=== PATIENT | female | born 1995 | race Caucasian/White ===

== ENCOUNTER 2017-04-23 18:08 | Inpatient (IN) | payer MEDICAID, SELFPAY ==
[~2017-04-23 18:08] MED LIST: Heparin 1,000 UNITS/ML VIAL ONE
[2017-04-23] MEDS ORDERED: Dexamethasone 4 mg/ml Vial ONE (19:05)
[2017-04-23 19:15] LABS: #Lymphocytes 1.3 thou/uL (1.20-3.40); #Monocytes 0.4 thou/uL (0.11-0.59); #Neutrophils 12.8 thou/uL (1.40-6.50); %Basophils 0.3 % (0.0-1.0); %Eosinophils 0.2 % (0.0-10.0); %Lymphocytes 8.8 % (28.0-48.0); %Monocytes 2.6 % (0.0-4.0); %Neutrophils 88.2 % (31.0-61.0); Hemoglobin 9.7 g/dL (12.0-16.0); Mean Corpuscular HGB CONC 33.5 g/dL (32.0-36.0); Mean Corpuscular Volume 92.7 fl (77.0-87.0); Platelet Count 414 thou/uL (130-400); RBC Distribution Width 12.1 % (11.5-14.5); Red Blood Cell (RBC) Count 3.13 mill/uL (4.00-5.20); White Blood Cell (WBC) Count 14.6 thou/uL (4.8-10.8)
[2017-04-23 19:39] LABS: Bilirubin Negative (Negative); Blood, Urine Large (Negative); Clarity CLEAR (Clear); Glucose, Urine (Dipstick) Negative (Negative); Leukocyte Negative (Negative); Nitrite Negative (Negative); Protein, Urine (Dipstick) Trace mg/dL (Neg-Trace)
[2017-04-23 19:41] LABS: Pathc Cast-AUWi Flag 0.54 (0-2.49)
[2017-04-23 19:42] LABS: Pregnancy Test - Urine (BHCG) Negative (Negative); Pregu Control Background? CLEAR/WHITE (CLR/WHITE); Pregu Control Bar Appear? YES (CONTROL BAR); Specific Gravity Greater than 1.060 (1.002-1.036)
[2017-04-23 19:43] LABS: Specific Gravity, Urine Greater than 1.060 (1.002-1.036)
[2017-04-23 20:00] LABS: Bacteria/HPF None Seen HPF (None Seen); Hyaline Casts/LPF 0-3 HYALINE CAST LPF (0-3 Hyaline); RBC/HPF 21-50 HPF (0-3); Squamous Epithelial 0-3 HPF (0-3); WBC/HPF 0-3 HPF (0-3)
--- NOTE | 2017-04-23 20:00 | RAD ---
AP PELVIS: 04/23/17 HISTORY: Hip pain. FINDINGS/IMPRESSION: There is contrast in the urinary bladder. No fracture, dislocation, or bony destruction identified. POS: [facility]
[2017-04-23] MEDS ORDERED: metroNIDAZOLE 500 MG in Premix Bag 1 BAG IVPB SCH (20:15)
[2017-04-23] MEDS ORDERED: VANCOMYCIN IVPB PRN (20:33)
--- NOTE | 2017-04-23 20:35 | CT ---
CT STONE PROTOCOL: 04/23/17 HISTORY: Abdominal pain. FINDINGS: Absence of IV and oral contrast reduces the sensitivity of exam particularly for the evaluation of so lid organs and bowel. There is contrast in the kidneys, ureters, and the urinary bladder from the CT pulmonary angiogram pe rformed four hours ago. Persistent bilateral nephrograms are present with contrast excretion into the ureters and urinary bladder. No hydroureteronephrosis is seen. There are low density lesions in righ t kidney. There are wedge shaped areas of decreased contrast particularly in the left renal cortex amezquita spicious for infarcts. The spleen measures 12.6 cm in AP dimension. No calcified gallstones are seen. No free air is identif ied. There is free fluid in the pelvis. Please see CT chest findings from earlier today. IMPRESSION: 1. Persistent bilateral nephrograms. Differential diagnosis includes hypotension, renal artery s tenosis, renal vein thrombosis, papillary necrosis, nephritis, tubular or cortical necrosis, tubular precipitation (such as with uric acid or hemolysis). 2. Borderline splenomegaly. 3. Low dense lesions in the right kidney. 4. Probable renal infarctions. POS: [facility]
--- NOTE | 2017-04-23 20:38 | ULT ---
VENOUS DOPPLER ULTRASOUND OF THE RIGHT LOWER EXTREMITY: 04/23/17 HISTORY: Right leg pain. TECHNIQUE: Carr scale ultrasound with color flow and spectral doppler imaging of the deep venous system of the r ight lower extremity is performed. FINDINGS: There is good flow, compression and augmentation noted in the right common femoral, femoral, deep fem oral, popliteal, posterior tibial, anterior tibial and greater saphenous veins. IMPRESSION: No evidence of DVT in the right lower extremity. POS: K[facility]
[2017-04-23] MEDS ORDERED: Ampicillin/Sulbactam 3 GM in Sodium Chloride 0.9% 100 ML IVPB SCH (21:00)
[2017-04-23] MEDS ORDERED: Ondansetron HCl/PF 4 MG/2 ML Vial IVP PRN (22:52)
[2017-04-23] MEDS ORDERED: Ondansetron ODT 4 MG TAB SL PRN (22:52)
[2017-04-23 23:20] LABS: HIV (1/2) Antibody/Antigen Non-Reactive (NonReactive); HIV 1/2 INDEX 0.19 S/CO (<1.00)
--- NOTE | 2017-04-23 23:43 | HP ---
PRIMARY CARE PHYSICIAN: Winsome López MD CHIEF COMPLAINT: Shortness of breath and cough. HISTORY OF PRESENT ILLNESS: Patient is a very pleasant 22-year-old female with history of lupus, currently not on any medications for the past 4 months, who was sent from [place] for jaylene ateral pneumonia. Upon talking to the patient, patient states that she has not been feeling well for the past few days. She has been complaining of cough, generalized body aches and pains, weakness an d so she went to see her doctor's office today; however, she was found to have hypotension, so she wa s sent to [place] for further evaluation. Patient underwent extensive workup at [place], w [facility] indicated bilateral cavitary pneumonia; and therefore, was transferred to [facility] for further evaluation. Patient denies any sick contacts recently. She denies any recent travel wit hin the [place] or outside the country. She denies any recent pets. She only has a couple of dogs. Patient states that she has been having decreased appetite and has lost about 7 pounds over past few weeks. She states that she has been feeling feverish at home. Patient does state that sh e has been having night sweats for the past 2 days. Prior to all of this incident, patient stated ab out 2 weeks ago, she stepped on a glass and went to the ER, which she had the glass removed. Since , she has also been complaining of right leg pain. Patient denies any chest pain currently. She does have a history of lupus and states that she takes meloxicam and Neurontin and has not been on st eroids for the past 4 months. PAST MEDICAL HISTORY: Lupus. PAST SURGICAL HISTORY: She had a . SOCIAL HISTORY: She denied any alcohol, smoking, or any drug use. ALLERGIES: No known drug allergies. REVIEW OF SYSTEMS: Patient is positive for night sweats, cough, low-grade fever, right hip and right leg pain, 7-pound weight loss, and decreased appetite. Otherwise, everything else is negative. PHYSICAL EXAMINATION: VITAL SIGNS: Currently, patient is at low-grade temperature of 99.3, respirations of 18. She is tac hycardic at 118, 104/61. She is 94% on room air. GENERAL: Patient is awake, alert, oriented x3, does not appear in any distress. CARDIOVASCULAR: S1, S2 present. Patient is sinus tachycardic. No murmurs heard. RESPIRATORY: She has decreased breath sounds to her bilateral lower bases. No rhonchi noted. ABDOMEN: Soft, nontender. Bowel sounds are present x2. EXTREMITIES: She does have a small healed incision on her right plantar aspect of her foot. She brown s have some pain, which is located on her right medial aspect of her thigh only. No redness or swell ing is noted around there. LABORATORY DATA: White count of 14.6, hemoglobin of 9.7, hematocrit of 29.1. She has no bands, plat elets of 414. Chemistry is pending. Magnesium of 1.8 elective of 1.1. Patient also had a CTA of he r chest, which indicated large bilateral cavitary lesion as well as small pulmonary nodules and cavit lindsay nodules in the lung bilaterally and there is also consolidation of the right lung base, most like ly pneumonia. ASSESSMENT AND PLAN: Patient is a very pleasant 22-year-old female who presents to the hospital with complaints of shortness of breath. 1. Significant cavitary lesion wanted to rule out tuberculosis with other atypical organisms includi ng Nocardia and Mycobacterium. QuantiFERON gold sent, acid-fast bacillus, sputum x3 ordered. Анна khalil is currently on airborne precaution. I will consult Pulmonology. 2. I will also start patient on Unasyn and vancomycin. May also add atypical coverage with azithrom ycin. 3. We will check sputum culture also of ANCA vasculitis workup sent. 4. Significant elevated sed rate and high D-dimer, she had a CTA, which was negative for any pulmona ry embolism. 5. Hypocalcemia. We will replace potassium. 6. Anemia. MCV appears to be 92.7. We will check some iron studies, could just be secondary to chr onic anemia secondary to underlying process. 7. Lupus. Patient states that she is currently not on any medication due to insurance problems. Diamond manning has not been on steroids for the past 4 months, as she has been on meloxicam and Neurontin accordin g to her. Patient also had influenza, which was negative. 8. Right thigh pain. Patient had a vascular ultrasound that did not indicate any evidence of deep v enous thrombosis in her right lower extremity.
[2017-04-24] MEDS: Heparin 5,000 UNITS/ML VIAL SC SCH ×4 (00:36→21:32)
[2017-04-24] MEDS: Famotidine 20 MG TAB PO SCH ×3 (00:37→20:39)
[2017-04-24] MEDS: Sodium Chloride 0.9% 1,000 ML IV SCH ×4 (00:51→18:40)
[2017-04-24] MEDS: Acetaminophen 325 MG TAB PO PRN ×2 (00:53→06:46)
[2017-04-24] MEDS: Cefepime 2 GM, Syringe 2.5 ML in Sodium Chloride 0.9% 10 ML SLOW IVP SCH ×2 (00:53→13:29)
[2017-04-24] MEDS: Ipratropium Bromide 2.5 ml Neb NEB SCH ×7 (01:07→22:57)
[2017-04-24 05:36] LABS: Band 14 % (5-11); Hemoglobin 8.8 g/dL (12.0-16.0); Hypochromia SLIGHT = 6-15 cells (100X) (0-5/hpf); Lymphocytes 2 % (28-48); MDiff Complete? YES; Mean Corpuscular HGB CONC 32.5 g/dL (32.0-36.0); Mean Corpuscular Hemoglobin 30.3 pg (25.0-35.0); Mean Corpuscular Volume 93.3 fl (77.0-87.0); Mean Platelet Volume 6.6 fL (7.4-10.4); Monocytes 1 % (0-4); Neutrophil 83 % (31-61); PLT Morphology Comment Appears Adequate; Platelet Count 398 thou/uL (130-400); RBC Distribution Width 12.1 % (11.5-14.5); White Blood Cell (WBC) Count 9.9 thou/uL (4.8-10.8)
[2017-04-24 05:40] LABS: ALT (SGPT) 13 U/L (8-55); AST (SGOT) 24 U/L (5-34); Albumin 2.2 g/dL (3.5-5.0); Alkaline Phosphatase 75 U/L (40-150); Anion Gap 9 mmol/L (10-20); BUN (Urea Nitrogen) 16 mg/dL (7.0-18.7); Bilirubin, Total 0.4 mg/dL (0.2-1.2); Calc. Creatinine Clearance 121 mL/min (70-130); Calcium 8.1 mg/dL (7.8-10.44); Carbon Dioxide 25 mmol/L (22-29); Chloride 107 mmol/L (98-107); Estimated GFR-MDRD Greater than 90; Globulin 3.3 g/dL (2.4-3.5); Glucose 176 mg/dL (70-105); Potassium 4.1 mmol/L (3.5-5.1); Protein, Total 5.5 g/dL (6.0-8.3); Sodium 137 mmol/L (136-145)
[2017-04-24] MEDS: Vancomycin HCl 1 GM in Premix Bag 1 BAG IVPB SCH ×2 (07:59→20:39)
[2017-04-24 10:37] LABS: Reticulocyte Count 1.6 % (0.5-1.5)
[2017-04-24 10:45] LABS: INR-International Normal Ratio 1.3; PTT 37.3 SEC (22.9-36.1); Prothrombin Time 16.3 SEC (12.0-14.7)
[2017-04-24 10:58] LABS: ALT (SGPT) 13 U/L (8-55); AST (SGOT) 20 U/L (5-34); Albumin 2.5 g/dL (3.5-5.0); Alkaline Phosphatase 77 U/L (40-150); Bilirubin, Direct 0.3 mg/dL (0.1-0.3); Bilirubin, Total 0.4 mg/dL (0.2-1.2); LDH 222 U/L (125-220)
--- NOTE | 2017-04-24 14:36 | PDOC.PN ---
- Subjective Encounter Start Date: 04/24/17 Encounter Start Time: 10:45 Subjective: pt up in bed coughing - Objective Vital Signs & Weight: Vital Signs (12 hours) Temp Pulse Resp BP Pulse Ox 04/24/17 14:14 101 H 98 04/24/17 12:32 97.7 F 87 20 122/78 94 L 04/24/17 10:47 104 H 98 04/24/17 08:35 97.8 F 80 14 96 04/24/17 07:54 97.8 F 80 14 112/63 96 04/24/17 07:38 94 L 04/24/17 04:57 97.4 F L 83 16 104/68 95 Weight Admit Weight 108 lb 14.4 oz Weight 108 lb 14.4 oz I&O: 04/23/17 04/24/17 04/25/17 06:59 06:59 07:59 Intake Total 967 Output Total 400 100 Balance 567 -100 Result Diagrams: 04/24/17 04:57 04/24/17 04:57 Phys Exam - Physical Examination HEENT: PERRLA, moist MMs Neck: no nodes Respiratory: no wheezing pt has diminished breath sounds to lower bases. mild rhonchi Cardiovascular: RRR, no significant murmur Dx/Plan - Plan * . 1) sepsis 2) cavitary lesion 3) renal infract 4) gram positive in clusters in one of her blood cx plan pt on abx for now, pulm consulted possible bronch given her cavitary lesion. hiv negative, AFB pending. will order echo. Id consulted. possible septic emboli causing her renal infract. Review of Systems - Review of Systems ENT: negative: Ear Pain, Ear Discharge, Nose Pain, Nose Discharge, Nose Congestion, Mouth Pain, Mouth Swelling, Throat Pain, Throat Swelling, Other Respiratory: Cough, Sputum Cardiovascular: negative: chest pain, palpitations, orthopnea, paroxysmal nocturnal dyspnea, edema, light headedness, other Gastrointestinal: negative: Nausea, Vomiting, Abdominal Pain, Diarrhea, Constipation, Melena, Hematochezia, Other Musculoskeletal: negative: Neck Pain, Shoulder Pain, Arm Pain, Back Pain, Hand Pain, Leg Pain, Foot Pain, Other - Medications/Allergies Allergies/Adverse Reactions: Allergies Allergy/AdvReac Type Severity Reaction Status Date / Time No Known Drug Allergies Allergy Verified 04/23/17 23:42 Medications: Current Medications Acetaminophen (Tylenol) 650 mg PO Q4H PRN PRN Reason: Headache/Fever or Pain Last Admin: 04/24/17 06:46 Dose: 650 mg Famotidine (Pepcid) 20 mg PO BID [facility] Last Admin: 04/24/17 08:22 Dose: 20 mg Heparin Sodium (Porcine) (Heparin) 5,000 units SC TID [facility] Last Admin: 04/24/17 10:52 Dose: Not Given Sodium Chloride (Normal Saline 0.9%) 1,000 mls @ 125 mls/hr IV .Q8H [facility] Last Admin: 04/24/17 08:35 Dose: 1,000 mls Vancomycin HCl 1 gm/ Device 200 mls @ 200 mls/hr IVPB 0800,2000 [facility] Last Admin: 04/24/17 07:59 Dose: 200 mls Cefepime HCl 2 gm/ Syringe 2.5 (ml/ Sodium Chloride) 12.5 mls @ 150 mls/hr SLOW IVP 1000,2200 [facility] Last Admin: 04/24/17 13:29 Dose: 12.5 mls Ipratropium [place]greso (Atrovent) 2.5 ml NEB [id number] [facility] Last Admin: 04/24/17 14:14 Dose: 2.5 ml Miscellaneous Medication (Pharmacy To Dose) 1 each IVPB PRN PRN PRN Reason: Pharmacy to dose Sodium Chloride (Flush - Normal Saline) 10 ml IVF Q12HR [facility] Last Admin: 04/24/17 08:22 Dose: Not Given Sodium Chloride (Flush - Normal Saline) 10 ml IVF PRN PRN PRN Reason: Saline Flush
--- NOTE | 2017-04-24 14:49 | CON ---
DATE OF CONSULTATION: 04/24/2017 Ms. Davalos is a 22-year-old female. She is a poor historian for a 22-year-old. She tells me she was told that she had lupus when she was 16 years old. She thinks this was in [facility], but she does not recall whether or not it was at [facility]. She has not been regularly seeing physician, although she says she has a doctor. She says she has been complaining of chest discomfort for the last month. She says she has coughed up red sputum, but when I asked her if it was bloody, she answered I do not know. She has had a . Her child is being cared for by her aunt by her history. She is complaining of right hip discomfort. She is on no medications prior to admission. She is a nonsmoker and nondrinker. She does not use drugs. PAST HISTORY: Patient is poor historian ALLERGIES: She has no reported drug allergies. SOCIAL HISTORY: Patient is a poor historian FAMILY HISTORY: Non contributory REVIEW OF SYSTEMS: Only remarkable for decreased appetite. The remainder of her 12-point review of systems is negative. She denies purulent sputum. She denies fever or night sweats. PHYSICAL EXAMINATION: GENERAL: She is very pleasant. She is in absolutely no distress. VITAL SIGNS: She is afebrile, heart rate is 87, respiratory rate is 20, oximetry is 94% on room air, blood pressure is 122/78. EYES: Pupils are equal. Sclerae is anicteric. NECK: Supple. She has no lymphadenopathy. LUNGS: Clear and distant. HEART: Regular rhythm, no S3, no murmur. ABDOMEN: Soft and nontender. No masses were readily palpable. EXTREMITIES: Without clubbing, cyanosis, or edema. NEUROLOGIC EXAM: Nonfocal. LABORATORY DATA: White count 9.9, hemoglobin 8.8, platelets 398,000. Sodium 137, potassium 4.1, chloride 107, bicarbonate 25, BUN 16, creatinine 0.58. HIV is negative. Chest CT was reviewed by me. She has extensive cavitary lesions bilaterally. Some of these have air fluid levels in them. She had an abdomen and pelvis CT when she got here and has still had contrast in her kidneys and ureters. Urinalysis showed large blood with 21-50 red cells. There is no significant proteinuria. She has borderline splenomegaly. There is suggestion of renal infarctions with wedge-shaped defects. Protime 16.3, PTT 37. IMPRESSION: Bilateral necrotic nodules that are quite large. Given that she has nothing to suggest she has an infectious process, I believe this would argue that this is autoimmune mediated. We really do not have access to any of her information regarding her initial diagnosis of lupus. She may have a mixed connective tissue disorder. She could have a necrotizing granulomatous process such as Fatemeh's. I doubt this is sarcoidosis. These pulmonary lesions have been present likely for many months given the size and cavitary nature. I doubt these are bacterial nature and I really doubt that these are related to Staph aureus. With her delayed clearance of contrast, I would be worried that her renal function will deteriorate. Nephrology, in my opinion, should be, consulted. Renal ultrasounds should be ordered to see if she has an increased echogenicity suggestive of chronic kidney disease. With a history of possible renal infarct seen on CT, a thrombosis panel should be ordered. Maybe appropriate to consider referral to a center with inpatient Rheumatology assistance since this is overwhelmingly likely to be vasculitis mediated and we do not have any information coordinator that regularly come to the hospital. I doubt seriously that this is tuberculosis or a fungal infection. I will be happy to follow with her. She has a very poor understanding of health issues and actually poor understanding of symptoms and seems to be fairly dependent on others for care. When I inquired about why she had tolerated pain in her chest for a month, she says that her aunt had told her it was just her sinuses. This is a 50 minute consultation with greater than 50% spent on the unit for coordination of care. FADY
[2017-04-24 15:31] LABS: INR-International Normal Ratio 1.3; Prothrombin Time 16.3 SEC (12.0-14.7)
[2017-04-24 15:32] LABS: PTT 38.1 SEC (22.9-36.1)
[2017-04-24] MEDS ORDERED: VANCOMYCIN IVPB PRN (15:42)
--- NOTE | 2017-04-24 23:59 | CON ---
DATE OF CONSULTATION: 04/24/2017 REASON FOR CONSULTATION: Bacteremia and pulmonary lesions. HISTORY OF PRESENT ILLNESS: A 22-year-old, first admission to [facility], who has a history of being diagnosed with lupus in the past. The story regarding this is not very clear and I am not convinced that she truly has systemic lupus erythematosus. Her perception that she has this illness is based on the fact that her mother reportedly has been diagnosed with SLE, and for some reason, they decided to test everybody in the family and reportedly she turned out to test positive. Other than that, she never truly had clinical signs or symptoms that would match a diagnosis of SLE. The patient about approximately 4 weeks prior to admission developed cough with sputum production , which was yellow. 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 Subsequently, she developed an injury to the right foot after stepping on a piece of glass. She had to go to the emergency room in [place], [place] and had it removed, and the patient by that time having chills and fever. She remembers temperature of 103. She continued to have respiratory symptoms with a lot of coughing spells and apparently went to another doctor in [place], and she also had been to a transmission line engineer reportedly in [place], which gave her naproxen and Neurontin. Eventually, she was seen by a doctor in [place] and he ordered some blood tests and referred her for admission at [facility]. Here, she had a blood cultures and one set has turned positive for methicillin-resistant Staphylococcus aureus. She also has been noted with quite abnormal imaging studies of the chest as discussed below. Currently, she has no headaches. She has what she describes as a whale covering the left visual field, which developed over the past week or so. No sore throat, aphasia, dysphagia. No toothache nasal or ear symptoms. No neck pain. No back pain. Continues to cough intermittently particularly if she takes a deep breath with purulent sputum production. She did have some hemoptysis yesterday. No dyspnea. No abdominal pain or diarrhea. No symptoms. She had some pain in the right thigh, which developed after she stepped on the glass and that has improved. No neurological symptoms. PAST MEDICAL HISTORY: As above. This is not well documented history of lupus. She is G1, P1 and she lives with her son and grandparents in [place]. Never smoker. No drug use of any sort. She takes Depo-Provera. ALLERGIES: None. CURRENT MEDICATION LIST: Tylenol, cefepime, Pepcid, heparin, Atrovent and vancomycin. PHYSICAL EXAMINATION: VITAL SIGNS: T-max 98.9, blood pressure 120/78, pulse 87-101, respirations 20, O2 sat 98%. GENERAL: Appears no distress. SKIN: Normal. She has a peripheral IV access right hand. No Coronado catheter. No lymphadenopathy. HEENT: Ocular movements are conjugate. Have not yet completed a funduscopic examination, we will do it later. Ocular movements conjugate. Oral cavity normal. Teeth in good shape. NECK: Supple. No jugular venous distention. LUNGS: With faint inspiratory crackles, right upper lobe breath sounds are symmetric. HEART: S1 and S2 without obvious murmurs, regular rate. ABDOMEN: Soft, not distended or tender. No ascites. No bladder distention. EXTREMITIES: No joint inflammatory activity. Moves all extremities equally. NEUROLOGIC: Cognitive function appears to be intact. LABORATORY DATA: White cell count 14.6 and 9.9, hemoglobin 8.8, MCV 93, platelets 398 with 82% neutrophils, 14% bands. INR 1.3. Sodium 137, creatinine 0.58. Liver profile normal. Albumin 2.2 and 2.5. Urinalysis with trace protein, 0-3 wbc's, and 21-50 rbc's. HIV serology nonreactive. The patient has a chest x-ray with infiltrates and one of the infiltrates has cavitation in the right upper lobe. A CT of chest with angiogram which showed no evidence of pulmonary embolism and it demonstrated multiple cavitary lesions in the lung nieto, particularly on the right side, but also smaller ones on the left side. They have thick faustin, but no air fluid levels are noted. ASSESSMENT: 1. Cough for 4 weeks. 2. Injury to right foot with a foreign object associated with pain in the right lower extremity a few weeks prior to this visit. 3. Fever. 4. Methicillin-resistant Staphylococcus aureus bacteremia. 5. Multiple cavitary lesions in the right and left lung nieto. DISCUSSION: Differential diagnoses includes endocarditis, right-sided, with hematogenous pneumonia or primary hematogenous pneumonia from aspiration, or hematogenous pneumonia from the foot. Primary or acquired immune deficiency is less likely since the patient does not have any history of such of any infectious process in the past. History of systemic lupus is very questionable , I do not think she meets criteria for that. One would have to review the autoimmune panel. Discontinue cefepime. Continue vancomycin, maintaining trough levels between 15 and 20. She will need protracted treatment and likely placement of a PICC line, 2D echocardiogram, may need a ADALBERTO. Other sites of involvement particularly the spine, long bones and joints are not apparent at this time, but will have to be monitored for. The other possibility would be just community-acquired methicillin-resistant Staphylococcus aureus pneumonia via aspiration with necrotizing features, which has been described particularly post-influenza in healthy young patients. MTDD
[2017-04-25] MEDS: Ipratropium Bromide 2.5 ml Neb NEB SCH ×6 (03:27→23:11)
[2017-04-25] MEDS: Sodium Chloride 0.9% 1,000 ML IV SCH ×3 (06:09→17:18)
--- NOTE | 2017-04-25 08:46 | PDOC.PN ---
- Subjective Encounter Start Date: 04/25/17 Encounter Start Time: 08:30 Subjective: f/u for MRSA sepsis and PNA with likely septic emboli with renal infarction -: Currently on Vancomycin and IVF's. Still feels weak and SOB. Minimal BM -: last 24h. Coughed up bloody sputum this am. - Objective MAR Reviewed: Yes Vital Signs & Weight: Vital Signs (12 hours) Temp Pulse Resp BP Pulse Ox 04/25/17 07:58 100.2 F H 136 H 18 110/67 91 L 04/25/17 06:29 122 H 14 95 04/25/17 03:27 121 H 14 99 04/25/17 03:12 99.1 F 114 H 20 118/62 97 04/25/17 00:00 98.6 F 106 H 20 107/60 98 04/24/17 22:57 109 H 18 96 04/24/17 20:45 98.5 F 121 H 14 97 04/24/17 19:48 98.5 F 94 16 109/65 97 Weight Admit Weight 108 lb 14.4 oz Weight 108 lb 14.4 oz I&O: 04/24/17 04/25/17 04/26/17 05:59 06:59 06:59 Intake Total Output Total Balance Result Diagrams: 04/24/17 04:57 04/24/17 04:57 Additional Labs: Microbiology 04/24/17 06:42 Sputum Acid Fast Bacilli Smear - Final 04/23/17 14:50 Nasal swab Influenza Types A,B Direct EIA - Final 04/23/17 19:28 Urine clean catch Urine Culture - Preliminary NO GROWTH AT 12 HOURS 04/23/17 19:04 Venous blood - Right Arm Blood Culture - Preliminary Specimen has been received and culture in progress. No Growth to date. 04/23/17 19:04 Venous blood - Left Arm Blood Culture - Preliminary Specimen has been received and culture in progress. No Growth to date. 04/23/17 16:13 Sputum - Pending Respiratory Culture - Preliminary 04/23/17 14:55 Venous blood - Left Arm Blood Culture - Preliminary Methicillin resistant S.aureus 04/23/17 14:50 Venous blood - Left Arm Blood Culture - Preliminary Gram Positive Cocci Radiology Reviewed by me: Yes (2D echo - EF 55-60%, no valve vegetations noted) EKG Reviewed by me: Yes (Tele - Sinus tach in 115-120's) Phys Exam - Physical Examination responsive, pale HEENT: PERRLA, oral pharynx no lesions Neck: no JVD, supple diminished in right field tachycardic mild distention Gastrointestinal: soft, non-tender, positive bowel sounds Musculoskeletal: no edema, pulses present Neurological: normal sensation, moves all 4 limbs Psychiatric: A&O x 3 Skin: normal turgor, cap refill <2 seconds Dx/Plan (1) Sepsis Code(s): A41.9 - SEPSIS, UNSPECIFIED ORGANISM Status: Acute Qualifiers: Sepsis type: methicillin resistant Staphylococcus aureus Qualified Code(s) : A41.02 - Sepsis due to Methicillin resistant Staphylococcus aureus Comment: Continue IVF's, continue Vancomycin with plans for PICC line placement 04/26/17, concern for endocarditis though echo was unrevealing (2) MRSA pneumonia Code(s): J15.212 - PNEUMONIA DUE TO METHICILLIN RESISTANT STAPHYLOCOCCUS AUREUS Status: Acute Qualifiers: Laterality: bilateral Comment: Cavitary areas noted with MRSA bacteremia, continue Vancomycin, Pulmonology consultation (3) Renal infarct Code(s): N28.0 - ISCHEMIA AND INFARCTION OF KIDNEY Status: Acute Comment: Likely bilat renal infarctions, Nephrology consult, continue IVF's, d/c Heparin (4) Septic embolism Code(s): I26.90 - SEPTIC PULMONARY EMBOLISM WITHOUT ACUTE COR PULMONALE Status : Suspected Comment: See above (5) Sinus tachycardia Code(s): R00.0 - TACHYCARDIA, UNSPECIFIED Status: Acute Comment: Persistent , continue IVF's, monitor clinically (6) Macrocytic anemia Code(s): D53.9 - NUTRITIONAL ANEMIA, UNSPECIFIED Status: Chronic Comment: ? chronicity, check B12/Folate/Iron/stool hemoccult - Plan continue antibiotics, hospital social worker, DVT proph w/SCDs Continue aggressive support -: PICC line placement 04/26/17 -: Continue Vancomycin -: Decrease IVF's 100ml/h -: AM lab: CMP, CBC, Iron/TIBC/Ferritin/stool guaiac * .
[2017-04-25] MEDS: Famotidine 20 MG TAB PO SCH ×2 (09:12→22:27)
[2017-04-25] MEDS: Vancomycin HCl 1 GM in Premix Bag 1 BAG IVPB SCH (09:12)
[2017-04-25] MEDS: Benzonatate 100 MG CAP PO SCH ×3 (11:10→22:27)
[2017-04-25] MEDS: guaiFENesin ER 600 MG TAB PO SCH ×2 (11:11→22:27)
[2017-04-25] MEDS: Acetaminophen 325 MG TAB PO PRN ×2 (11:11→22:26)
--- NOTE | 2017-04-25 13:11 | CON ---
DATE OF CONSULTATION: 04/25/2017 HISTORY OF PRESENT ILLNESS: Ms. Davalos is a 22-year-old white female who was admitted for complaint of shortness of breath and cough. She was found to have pneumonia with cavitary abscess as well as bacteremia. During the initial workup, she was found to have radiographic evidence of renal infarct. On close questioning, the patient tells me she has lupus. However, we have no documentation that she has a definitive diagnosis of lupus. We are being consulted for further management of this renal infarct. The feeling is that this is secondary to septic emboli. REVIEW OF SYSTEMS: Positive for cough, fever, some mild shortness of breath. No nausea, no vomiting, no syncopal episode. Positive for abdominal fullness, but denies any flank pain per se. Denies any gross hematuria, no dysuria, no urinary frequency. No joint pains, no new skin rash. Appetite and energy level is decreased. No headache, no diplopia. MEDICATIONS: Currently on Tessalon 100 mg p.o. t.i.d., Pepcid 20 mg b.i.d., Atrovent 2.5 neb treatment q.4h. Vancomycin as directed, status post cefepime. PAST MEDICAL HISTORY: 1. She has ? of lupus, but no documentation. 2. ? of asthma. PAST SURGICAL HISTORY: Status post section. 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 She has 1 child. No history of smoking , no alcohol intake, no IV drug abuse. Denies any blood transfusion. Education , first year high school. ALLERGIES: None. TRAUMA: None. IMMUNIZATIONS: Up to date. HOSPITALIZATIONS: Please see past medical history. FAMILY HISTORY: No family history of ESRD. PHYSICAL EXAMINATION: VITAL SIGNS: Blood pressure 110/67, heart rate ranging from 114-136, temperature 100.2, respiratory rate 18, pulse ox 91%. GENERAL: Awake, supine, comfortable, not in overt distress. SKIN: Adequate turgor. HEENT: Slightly pale conjunctivae, anicteric sclerae. NECK: No neck mass, no carotid bruits, no JVD. CHEST: No deformities. LUNGS: Decreased breath sounds. HEART: Tachycardic, no murmur, no gallops, no rubs. ABDOMEN: Globular, soft, nontender, no masses. EXTREMITIES: No edema, no deformities. LABORATORY DATA: 04/23/2017: Blood culture shows MRSA. Urine culture, no growth to date. Sputum for AFB was negative. Blood cultures are pending. CT of the abdomen and pelvis spiral noncontrast finding of probable renal infarctions, borderline splenomegaly. 04/23/2017, CT of the chest with IV contrast shows large bilateral cavitary lesions with smaller pulmonary nodules. There are also findings of pneumonia. 04/23/2017, shows Doppler of the leg, no evidence of DVT. ASSESSMENT AND PLAN: Acute renal infarction - renal function so far remains stable. Her chemistries of 04/24/2017 was reviewed with a normal BUN and a normal creatinine. LDH was noted to be mildly elevated at 222. Management of this is a consideration for a septic emboli/infarction simply addressing the infectious etiology. The only reason I will anticoagulate this patient if she has a definitive lupus and she does have lupus anticoagulant that may push me to treating her renal infarction with anticoagulation. However, the clinical presentation is more consistent with someone who may have septic emboli to the kidneys. So far, she seems to be normal with renal function. The hematuria on urinalysis may still be in consonant with someone who has renal infarction. Again, there is no definitive diagnosis of lupus with this patient. She is currently being worked up for that. Overall, agree with current management. FADY
--- NOTE | 2017-04-25 17:00 | PRG ---
DATE OF SERVICE: 04/25/2017 Mr. Davalos's blood cultures from the afternoon of 04/23/2017 positive for MRSA. These were reported yesterday afternoon. Sputum has grown MRSA as well. Acid fast smears are negative. Given that she has posterior lower lobe lesions there at the bottom of the lungs, it is very unlikely this is tuberculosis reactivation. Followup blood cultures done in the afternoon on 04/23/2017 appear negative at 48 hours. Clinically, she is about the same. She continues to have low grade temperature elevations. Given that she is Staph bacteremic, the renal infarctions could be septic emboli. Thrombosis panel was sent yesterday. These lesions are unusually large for Staph aureus lung abscesses, but given her limited ability cogn itively to understand her symptoms, it is very possible she has been living with this for at least e duration of her symptoms or longer. We will wait for more serology before we make further recommendations.
[2017-04-25 19:20] LABS: Vancomycin, Trough 11.9 ug/mL
[2017-04-25] MEDS ORDERED: Vancomycin HCl 1.25 GM in Sodium Chloride 0.9% 250 ML 250 ML IVPB SCH (21:15)
[2017-04-26] MEDS: Ipratropium Bromide 2.5 ml Neb NEB SCH ×6 (02:15→23:16)
[2017-04-26] MEDS: Vancomycin HCl 1 GM in Premix Bag 1 BAG IVPB SCH (02:44)
[2017-04-26 05:27] LABS: Band 11 % (5-11); Lymphocytes 20 % (28-48); MDiff Complete? YES; Mean Corpuscular HGB CONC 32.3 g/dL (32.0-36.0); Mean Corpuscular Hemoglobin 30.1 pg (25.0-35.0); Mean Corpuscular Volume 93.3 fl (77.0-87.0); Mean Platelet Volume 5.8 fL (7.4-10.4); Monocytes 1 % (0-4); Neutrophil 68 % (31-61); PLT Morphology Comment Appears Increased; Platelet Count 468 thou/uL (130-400); RBC Distribution Width 12.5 % (11.5-14.5); Red Blood Cell (RBC) Count 2.64 mill/uL (4.00-5.20); White Blood Cell (WBC) Count 8.9 thou/uL (4.8-10.8)
[2017-04-26 05:37] LABS: ALT (SGPT) 10 U/L (8-55); AST (SGOT) 15 U/L (5-34); Albumin 2.4 g/dL (3.5-5.0); Alkaline Phosphatase 58 U/L (40-150); Anion Gap 11 mmol/L (10-20); BUN (Urea Nitrogen) 7 mg/dL (7.0-18.7); Bilirubin, Total 0.4 mg/dL (0.2-1.2); Calc. Creatinine Clearance 132 mL/min (70-130); Calcium 7.9 mg/dL (7.8-10.44); Carbon Dioxide 22 mmol/L (22-29); Chloride 110 mmol/L (98-107); Estimated GFR-MDRD Greater than 90; Globulin 3.1 g/dL (2.4-3.5); Glucose 96 mg/dL (70-105); Iron 11 ug/dL (50-170); Iron Binding Capacity, Total 138 mcg/dL (265-497); Potassium 3.6 mmol/L (3.5-5.1); Protein, Total 5.5 g/dL (6.0-8.3); Sodium 139 mmol/L (136-145)
[2017-04-26 06:03] LABS: Folate (Folic Acid) 7.5 ng/mL (7.0-31.4)
[2017-04-26] MEDS: Acetaminophen 325 MG TAB PO PRN ×3 (06:30→21:26)
[2017-04-26] MEDS: Benzonatate 100 MG CAP PO SCH ×3 (09:13→21:26)
[2017-04-26] MEDS: Famotidine 20 MG TAB PO SCH ×2 (09:14→21:27)
[2017-04-26] MEDS: Vancomycin HCl 1.25 GM in Sodium Chloride 0.9% 250 ML 250 ML IVPB SCH ×2 (09:14→21:26)
[2017-04-26] MEDS: guaiFENesin ER 600 MG TAB PO SCH ×2 (09:14→21:26)
[2017-04-26] MEDS: Sodium Chloride 0.9% 1,000 ML IV SCH ×2 (09:21→21:32)
--- NOTE | 2017-04-26 09:57 | PRG ---
DATE OF SERVICE: 04/26/2017 Alisa Davalos has no complaints. PHYSICAL EXAMINATION: VITAL SIGNS: Her temperature max was 100.4, heart rate is 126, respiratory rate is 18, oximetry is 9 5 on room air, blood pressure 120/72. She is still coughing up purulent sputum. LUNGS: Clear. HEART: Regular rhythm. ABDOMEN: Soft. Echocardiogram shows normal ventricular function. LABORATORY: White count is 8.9, hemoglobin 8.0, platelets 468. Sodium 139, potassium 3.6, chloride 110, bicarbonate 22, BUN 7, creatinine 0.53. Iron is 11, TIBC is 138. This is not consistent with i maggie deficiency anemia. Ferritin 646. Albumin is 2.4. Her thrombosis panel is pending. SOUTH neutrophil cytoplasmic antibody and lupus panel was ordered, these results are not available yet. IMPRESSION: 1. Methicillin-resistant Staphylococcus aureus bacteremia. 2. Methicillin-resistant Staphylococcus aureus in her sputum. 3. Multiple large cavitary lung lesions. The lesions are large, they are not typical for MRSA, but she has also been symptomatic for over a month. We will await vasculitis serology. Continue with an timicrobial therapy. 4. With her renal infarcts, one would wonder about septic emboli. Her echocardiogram does not show vegetation. It could be that she is already embolized or something is being missed on the transthora cic echo, transesophageal echo would be better in evaluating her left-sided valves. We will continue to follow. I again questioned her about the diagnosis of lupus. She is fairly adamant that she has lupus, but w hen I inquire about symptoms the only thing she could tell me that she was experiencing was "aching a ll over". She says that is why she has lupus. We will just have to wait for the serology. She is a marginal historian, has a very poor understanding of health issues.
--- NOTE | 2017-04-26 11:50 | PDOC.PN ---
- Subjective Encounter Start Date: 04/26/17 Encounter Start Time: 10:00 Subjective: no specific complaints - Objective MAR Reviewed: Yes Vital Signs & Weight: Vital Signs (12 hours) Temp Pulse Resp BP Pulse Ox 04/26/17 11:27 98.6 F 120 H 20 140/85 96 04/26/17 10:52 122 H 16 96 04/26/17 08:00 98.9 F 126 H 18 95 04/26/17 07:58 98.9 F 126 H 18 121/72 95 04/26/17 07:25 130 H 18 95 04/26/17 02:15 20 Weight Admit Weight 108 lb 14.4 oz Weight 108 lb 14.4 oz I&O: 04/25/17 04/26/17 04/27/17 06:59 06:59 06:59 Intake Total 1685 Output Total 650 Balance 1035 Result Diagrams: 04/26/17 04:56 04/26/17 04:56 Phys Exam - Physical Examination Neck: no JVD Respiratory: clear to auscultation bilateral Cardiovascular: RRR, no significant murmur tachy Gastrointestinal: soft, non-tender, positive bowel sounds Musculoskeletal: no edema Dx/Plan (1) Sepsis due to methicillin resistant Staphylococcus aureus Code(s): A41.02 - SEPSIS DUE TO METHICILLIN RESISTANT STAPHYLOCOCCUS AUREUS Status: Acute (2) MRSA pneumonia Code(s): J15.212 - PNEUMONIA DUE TO METHICILLIN RESISTANT STAPHYLOCOCCUS AUREUS Status: Acute Qualifiers: Laterality: bilateral Comment: Cavitary areas noted with MRSA bacteremia, continue Vancomycin, Pulmonology consultation (3) Renal infarct Code(s): N28.0 - ISCHEMIA AND INFARCTION OF KIDNEY Status: Acute Comment: Likely bilat renal infarctions, Nephrology consult, continue IVF's, d/c Heparin (4) Septic embolism Code(s): I26.90 - SEPTIC PULMONARY EMBOLISM WITHOUT ACUTE COR PULMONALE Status : Suspected Comment: See above - Plan cont vancomycin, iv fluids -: PICC * .
[2017-04-26 12:07] LABS: PTT - Undiluted 31.4 SEC (22.9-36.1); PTT 1:1 Mix 34.3 SEC
[2017-04-26 12:50] LABS: Protein C Activity 84 % (78-152)
[2017-04-26 13:22] LABS: Factor VIII Test 331.7 % ACTIVE (56-157)
[2017-04-26 15:03] LABS: PT 1:1 37C-90 min. Incubation 14.3 SEC
[2017-04-26 15:04] LABS: DRVVT Confirm 41.3; DRVVT Ratio 0.7 Ratio (1.2 or Less); DRVVT Screen 28.5 SEC (20-50)
[2017-04-26 15:04] LABS: ANA Symphony (Qualitative) Negative (Negative)
--- NOTE | 2017-04-26 21:25 | PRG ---
DATE OF SERVICE: 04/26/2017 SUBJECTIVE: Ms. Davalos is a 22-year-old white female who was admitted for sepsis, bacteremia and referred for renal infarction. Our feeling is that this is infectious in etiology. She also gave a history of having lupus, but she does not have any serological evidence for lupus. This morning, she is still running short of breath. She does have cavitations in her lungs. She is being empirically treated with IV antibiotics. PHYSICAL EXAMINATION: VITAL SIGNS: Reviewed GENERAL: Awake, alert, supine, lethargic, not in overt distress. SKIN: Adequate turgor. HEENT: Pinkish conjunctivae, anicteric sclerae. NECK: No neck mass, no carotid bruits, no JVD. CHEST: No deformities. LUNGS: Harsh breath sounds. HEART: Tachycardic. ABDOMEN: Globular, soft, nontender, no masses. EXTREMITIES: No edema, no deformities. MEDICATIONS: Reviewed LABORATORY DATA: Laboratories of 04/26 -. D-dimer is 8.7. Factor VIII noted mildly elevated at 331. normal at 1.0. 11.9. ASSESSMENT AND PLAN: renal infarction - suspicion that this could be an infectious embolic syndrome and is unclear if full anticoagulation will be added or will be appropriate at the present time. So far the joint pain is still present , but the serologies are all negative. Lupus anticoagulant was also negative at normal value of 0.7. For the moment, I agree with the conservative management. I do not see any indication for any overt anticoagulation with this patient. The suspicion is that this is an infectious process causing a septic emboli to both kidneys. We will check basic metabolic panel and CBC in a.m. Agree with current management on IV antibiotics. FADY
[2017-04-27] MEDS: Ipratropium Bromide 2.5 ml Neb NEB SCH ×6 (02:43→22:10)
[2017-04-27] MEDS: Acetaminophen 325 MG TAB PO PRN ×3 (03:09→15:52)
[2017-04-27] MEDS ORDERED: Milk Of Magnesia 30 ML UDCUP PO PRN (03:37)
[2017-04-27] MEDS: Sodium Chloride 0.9% 1,000 ML IV SCH ×2 (06:22→20:14)
[2017-04-27] MEDS: guaiFENesin ER 600 MG TAB PO SCH ×2 (08:18→20:35)
[2017-04-27] MEDS: Famotidine 20 MG TAB PO SCH ×2 (08:18→20:35)
[2017-04-27] MEDS: Benzonatate 100 MG CAP PO SCH ×3 (08:18→20:35)
[2017-04-27] MEDS: Vancomycin HCl 1.25 GM in Sodium Chloride 0.9% 250 ML 250 ML IVPB SCH (08:19)
--- NOTE | 2017-04-27 10:06 | PDOC.PN ---
- Subjective Encounter Start Date: 04/27/17 Encounter Start Time: 10:04 Subjective: severe cough, hurts all over - Objective MAR Reviewed: Yes Vital Signs & Weight: Vital Signs (12 hours) Temp Pulse Resp BP BP Pulse Ox 04/27/17 07:52 100.2 F H 115 H 16 140/77 92 L 04/27/17 07:20 119 H 15 92 L 04/27/17 04:42 99.3 F 04/27/17 03:45 100.5 F H 127 H 20 131/68 127 H 04/27/17 02:43 123 H 16 97 04/27/17 01:05 99.6 F 04/26/17 23:53 100.3 F H 129 H 96 H 104/66 20 L Weight Admit Weight 108 lb 14.4 oz Weight 108 lb 14.4 oz I&O: 04/26/17 04/27/17 04/28/17 06:59 06:59 06:59 Intake Total 1685 2894 Output Total 650 3525 Balance 1035 -631 Result Diagrams: 04/26/17 04:56 04/26/17 04:56 Phys Exam - Physical Examination Neck: no JVD coarse BS with rhonchi, pink sputum Cardiovascular: RRR, no significant murmur Gastrointestinal: soft, positive bowel sounds Musculoskeletal: no edema Dx/Plan (1) Sepsis due to methicillin resistant Staphylococcus aureus Code(s): A41.02 - SEPSIS DUE TO METHICILLIN RESISTANT STAPHYLOCOCCUS AUREUS Status: Acute (2) MRSA pneumonia Code(s): J15.212 - PNEUMONIA DUE TO METHICILLIN RESISTANT STAPHYLOCOCCUS AUREUS Status: Acute Qualifiers: Laterality: bilateral Comment: Cavitary areas noted with MRSA bacteremia, continue Vancomycin, Pulmonology consultation (3) Renal infarct Code(s): N28.0 - ISCHEMIA AND INFARCTION OF KIDNEY Status: Acute Comment: Likely bilat renal infarctions, Nephrology consult, continue IVF's, d/c Heparin (4) Septic embolism Code(s): I26.90 - SEPTIC PULMONARY EMBOLISM WITHOUT ACUTE COR PULMONALE Status : Suspected Comment: See above (5) Hemoptysis Code(s): R04.2 - HEMOPTYSIS Status: Acute - Plan cont iv antibx -: codiene for cough -: , call pulmonology re bronchoscopy * .
[2017-04-27] MEDS: Acetaminophen/Codeine 30-300mg Tablet PO PRN ×3 (10:27→23:27)
--- NOTE | 2017-04-27 11:53 | PRG ---
DATE OF SERVICE: 04/27/2017 Alisa Davalos is a 22-year-old female. This morning she has persistent coughing of frothy bloody spu bonnie with abdominal pain. She denied any nausea or vomiting. She complained of palpitations. She was found to have MRSA sepsis with bilateral cavitary pneumonia. Last x-ray showed a significant left-sided pleural effusion. PHYSICAL EXAMINATION: VITAL SIGNS: This morning shows temperature 100.2, pulse 115, respirations 16. Sats 92%, [place] [id number]. CHEST: Chest revealed decreased breath sounds, extensive rhonchi. CARDIAC: Sinus tachycardia. ABDOMEN: Soft. IMPRESSION: 1. Bilateral cavitary pneumonia, sepsis. 2. Renal infarct, probably from sepsis. 3. Anemia. 4. History of presumed lupus, the first of all workup has been negative. PLAN: Impressed by the large cavitary infiltrate she has, persistent coughing and discomfort. Consi ana low dose steroids for several days. Antibiotics per Infectious Disease. X-ray is being ordered. I will follow.
--- NOTE | 2017-04-27 12:21 | RAD ---
CHEST TWO VIEWS: History: Pneumonia. Comparison: 04-23-17 FINDINGS: Cavitary lesions within the right upper and lower lobes are again demonstrated. A cavitary lesion in the left lower lobe is not well visualized. Pleural fluid is similar in appearance to the previous ex am. No evidence of pneumothorax. Mediastinum remains midline. potline monitor leads overlie the chest . IMPRESSION: Allowing for differences in technique, the multifocal cavitary infiltrates and pleural fluid appear s table compared to the prior CT. POS: KALEY
--- NOTE | 2017-04-27 12:47 | HP ---
DATE OF SERVICE: 04/27/2017 HISTORY OF PRESENT ILLNESS: Ms. Davalos is a 22-year-old white female, who was admitted for fever and chills. She was found to have pulmonary cavitary lesions. She is currently being treated for infec tious process. We were seeing this patient for renal infarct - most likely embolic from a septic emb tayo?. I did check the patient for lupus and her SOUTH is negative as well as the double-stranded anti- DNA were all negative, although claims that she has lupus. The serologies are not supporting this. No other complaints except for the persistent mild shortness of breath. Please note patient's supportive management. She is currently on IV vancomycin at 1.25 grams IV q.12 hour. ID is following. PHYSICAL EXAMINATION: VITAL SIGNS: Blood pressure is 140/77, heart rate 115, temperature 100.2, respiratory rate 16, pulse ox 92%. GENERAL EXAM: Awake, supine, comfortable, not in distress. SKIN: Adequate turgor. HEENT: She has slightly pale conjunctivae, anicteric sclerae. NECK: No neck mass, no carotid bruits, no JVD. CHEST: No deformities. LUNGS: Harsh breath sounds. HEART: Normal sinus rhythm. No murmur, no gallops, no rubs. ABDOMEN: Globular, soft, nontender, no masses. EXTREMITIES: No edema, no deformities. Medications of 04/27/2016 reviewed. LABORATORY DATA: 04/26/2017, BUN 7, creatinine 0.53, potassium 3.6, white count 8.9, hemoglobin 8. ASSESSMENT AND PLAN: Renal infarct - most likely a septic emboli. Anti-thrombotic panel so far has essentially been normal. The rest of the serologies are still pending. SOUTH is currently negative. Continue supportive care. Continue IV antibiotics. Consider doing a thrombotic panel with this samia ent if this has not been done.
--- NOTE | 2017-04-27 13:32 | ULT ---
ULTRASOUND ABDOMEN: HISTORY: Abdominal distention. FINDINGS: The liver demonstrates a homogeneous echotexture without evidence of focal mass or intrahepatic ducta l dilatation. The spleen measures 12.6 cm in length and is unremarkable. No gallstones, gallbladder wall thickening, or pericholecystic fluid is seen. The common duct measures 6 mm in diameter. The pancreas, aorta, and IVC are unremarkable. No hydronephrosis is seen on either side. Bilateral renal cysts are present, with the largest measuring 1.3 cm on the right and 1 cm on the left. No free flu id is seen in the abdomen. Incidental note is made of bilateral pleural effusions. IMPRESSION: 1. No evidence of cholelithiasis. 2. Bilateral renal cysts. 3. Bilateral pleural effusions. POS: H
--- NOTE | 2017-04-27 13:46 | SPC ---
ULTRASOUND AND FLUOROSCOPIC GUIDED PICC LINE PLACEMENT: HISTORY: Sepsis. COMPARISON: None. TECHNIQUE/IMPRESSION: The patient was brought to the specials suite. All questions were answered. The patient's right arm was prepped and draped in normal sterile fashion. Using ultrasound guidance, the right basilic vein was accessed. Over a wire and through a peelaway sheath, a dual-lumen PICC w as placed with tip in good position at the inferior SVC. IMPRESSION: Technically successful PICC line placement without complication. POS: KAVITHA
--- NOTE | 2017-04-27 15:50 | CON ---
DATE OF CONSULTATION: 04/27/2017 CARDIOLOGY CONSULTATION REASON FOR CONSULTATION: Need for ADALBERTO secondary to MRSA bacteremia. HISTORY OF PRESENT ILLNESS: Ms. Davalos is a very pleasant 22-year-old white female who comes to the hospital for not feeling well. She has a history of lupus and has been on any medication for few mon ths. She had been having cough and short of breath. She was seen in the ER and was found to have ca vitary lesions on her chest x-ray and CT. Eventually, she grew out MRSA on her blood cultures. Card iology is being consulted for consideration of ADALBERTO in the setting of MRSA bacteremia to rule out endo carditis. She has no complaints. Denies any chest pain, tightness or pressure. She just had a PICC line placed and since the PICC line was placed, she has been having a lot of ectopy on her telemetry monitoring. She denies any worsening shortness of breath. PAST MEDICAL HISTORY: Lupus by history. PAST SURGICAL HISTORY: . SOCIAL HISTORY: No alcohol, tobacco or drugs. ALLERGIES: No known drug allergies. OUTPATIENT MEDICATIONS: None. REVIEW OF SYSTEMS: A 12 point review of systems was done and is all negative unless stated in the hi story of present illness. PHYSICAL EXAMINATION: VITAL SIGNS: Temperature 100.2, pulse 115, respiratory rate 16, satting 92% on room air, blood press ure 140/77. GENERAL: Awake, alert, oriented x3, in no distress. HEENT: Normocephalic, atraumatic. NECK: Supple. LUNGS: Clear. CARDIOVASCULAR: S1, S2, no S3, S4, no murmurs or rubs. ABDOMEN: Soft, positive bowel sounds. EXTREMITIES: No edema. SKIN: Warm and dry. LABORATORY DATA: Microbiology was reviewed. ASSESSMENT AND PLAN: We will do chest x-ray to make sure that her PICC line has not migrated in, thi s was placed under fluoroscopy, so most likely the original placed was fine, but sometimes these can flow into the RV. If that is fine, this may be related to just her situation with fevers and bactere shiela. We will be prohibitive to do heart catheterization at this time as if we were to put a stent in . There is a high risk of seeding and mortality for an infected stent, intracoronary stent is 100%. We would defer for now. She is not having any symptoms suggestive of CHF or ischemia. At this time , we will plan on doing a ADALBERTO tomorrow. This will give us a better evaluation of what her valves we looked at as well as her LV function to make sure as it was back on the when it was evaluated wit h a transthoracic echocardiogram and it showed an EF of 55%-60%. 2. We spoke about the risks and benefits of the procedure. The patient agrees to proceed. We will plan on doing this tomorrow. N.p.o. post-midnight except medications.
[2017-04-27 15:58] LABS: ALT (SGPT) 10 U/L (8-55); AST (SGOT) 16 U/L (5-34); Albumin 2.2 g/dL (3.5-5.0); Alkaline Phosphatase 62 U/L (40-150); Anion Gap 12 mmol/L (10-20); BUN (Urea Nitrogen) 6 mg/dL (7.0-18.7); Bilirubin, Total 0.5 mg/dL (0.2-1.2); Calc. Creatinine Clearance 152 mL/min (70-130); Calcium 7.7 mg/dL (7.8-10.44); Carbon Dioxide 20 mmol/L (22-29); Chloride 110 mmol/L (98-107); Estimated GFR-MDRD Greater than 90; Globulin 3.1 g/dL (2.4-3.5); Glucose 87 mg/dL (70-105); Potassium 4.1 mmol/L (3.5-5.1); Protein, Total 5.3 g/dL (6.0-8.3); Sodium 138 mmol/L (136-145)
--- NOTE | 2017-04-27 16:36 | PDOC.EVN ---
Event Note - Event Note Event Note: post PICC placement , patient had wide QRS tachycardia. moved to CCU . stat cxr ordered.
--- NOTE | 2017-04-27 16:59 | PDOC.EVN ---
Event Note - Event Note Event Note: spoke with Dr Victoria, radiology about PICC line placement. need to pull back a bit?
--- NOTE | 2017-04-27 17:46 | RAD ---
CHEST ONE VIEW: 04/27/17 HISTORY: Tachycardia. FINDINGS: Cardiac silhouette is magnified by projection. Cavitary lesions, bilateral pleural fluid, and patchy bibasilar infiltrates are again demonstrated. Tip of a right upper extremity PICC now overlies the right atrium. IMPRESSION: 1. Bilateral fluid, cavitary lesions, and patchy bibasilar infiltrates. 2. Right upper extremity PICC is in good radiographic position. Findings were discussed with Dr. Moore at 1659 hours. Code CR POS: [facility]
--- NOTE | 2017-04-27 19:11 | RAD ---
RIGHT FOOT: 04/27/17 Three views. HISTORY: Assess for foreign body. Osseous structures are unremarkable. No soft tissue foreign body identified. IMPRESSION: No soft tissue foreign body. POS: KAVITHA
[2017-04-27] MEDS: Linezolid 600 MG in Premix Bag 1 BAG IVPB SCH (20:35)
--- NOTE | 2017-04-27 20:54 | OP ---
DATE OF PROCEDURE: 04/27/2017 SERVICE: Pulmonary Medicine. PROCEDURE PERFORMED: Left-sided pleural drainage with catheter insertion under ultrasound guidance. CONSENT: Risks and benefits of this procedure were explained to the patient. All questions were ans wered and alternative options explained. STAFF PHYSICIAN: Chaz Montana M.D. MEDICATIONS USED: 1% lidocaine without epinephrine, total quantity 10 mL. PREPROCEDURE DIAGNOSES: 1. Pleural effusion. 2. Severe sepsis. 3. Methicillin-resistant Staphylococcus aureus bacteremia, and pneumonia. POSTPROCEDURE DIAGNOSES: 1. Complicated parapneumonic pleural effusion, possible empyema. 2. Community-acquired pneumonia secondary to Staphylococcus aureus. 3. Severe sepsis. DESCRIPTION OF PROCEDURE: A timeout was performed by the procedure team and patient. The patient wa s positively identified using name and date of . The procedure site was marked. Vital sign mon itoring was accomplished by noninvasive hemodynamic monitoring, pulse oximetry, and telemetry. In th e seated position, left posterior hemithorax was examined using ultrasound probe. The diaphragm and pleural fluid were easily identified. There were multiple loculations and septations throughout the left lung. The skin was prepped and draped in sterile fashion, anesthetized with 1% lidocaine withou t epinephrine. A finder needle was inserted in the pleural space with return of viscous straw-colore d fluid. A pleural drainage catheter was then inserted in the same location and a total quantity of 600 mL of the same fluid was withdrawn by syringe pump technique. A sample was sent for analysis. E vacuation was terminated, because we arrived at -16 cm of water and the fluid became more difficult t o pull. At the end of the procedure, an intact catheter was withdrawn on exhalation and a sterile dr essing was applied. The patient had stable vitals throughout the entire procedure. ESTIMATED BLOOD LOSS: Less than 2 mL COMPLICATIONS: None.
[2017-04-27 21:07] LABS: #Lymphocytes 0.6 thou/uL (1.20-3.40); #Monocytes 0.1 thou/uL (0.11-0.59); #Neutrophils 10.1 thou/uL (1.40-6.50); %Basophils 0.1 % (0.0-1.0); %Eosinophils 0.4 % (0.0-10.0); %Lymphocytes 5.3 % (28.0-48.0); %Monocytes 1.1 % (0.0-4.0); Hemoglobin 8.1 g/dL (12.0-16.0); Mean Corpuscular HGB CONC 32.7 g/dL (32.0-36.0); Mean Corpuscular Hemoglobin 30.3 pg (25.0-35.0); Mean Corpuscular Volume 92.6 fl (77.0-87.0); Mean Platelet Volume 6.3 fL (7.4-10.4); Platelet Count 407 thou/uL (130-400); RBC Distribution Width 12.4 % (11.5-14.5); Red Blood Cell (RBC) Count 2.68 mill/uL (4.00-5.20); White Blood Cell (WBC) Count 10.9 thou/uL (4.8-10.8)
[2017-04-27 22:27] LABS: BF Color Brown; Body Fluid Source THORACENTESIS FLD; Clarity Cloudy/Turbid (Clear); RBC Background Count 0.003; Tube # EDTA
[2017-04-27 22:28] LABS: RBC Count-Automated 10000 /cumm; WBC/NonHematic-Auto 1040 /cumm
[2017-04-27 22:37] LABS: Pleural Fluid, Protein 2.8 g/dL
[2017-04-27 22:53] LABS: BF Segmented Neutrophils 14 %; Cell Count Non Hematic 35 %; Lymphocytes 51 %
[2017-04-28 01:49] LABS: Vancomycin, Trough 4.8 ug/mL
[2017-04-28] MEDS: Vancomycin HCl 1.25 GM in Sodium Chloride 0.9% 250 ML 250 ML IVPB SCH ×2 (02:47→14:14)
[2017-04-28] MEDS: Sodium Chloride 0.9% 1,000 ML IV SCH ×2 (02:47→09:12)
[2017-04-28] MEDS: Ipratropium Bromide 2.5 ml Neb NEB SCH ×5 (02:47→19:27)
--- NOTE | 2017-04-28 07:49 | PDOC.PN ---
- Subjective Encounter Start Date: 04/28/17 Encounter Start Time: 07:47 Subjective: less cough, pain - Objective MAR Reviewed: Yes Vital Signs & Weight: Vital Signs (12 hours) Temp Pulse Resp Pulse Ox 04/28/17 04:00 97 04/28/17 02:47 66 24 H 04/28/17 02:00 97 04/28/17 00:00 98.1 F 97 04/27/17 23:00 98 04/27/17 22:10 106 H 20 96 04/27/17 21:00 98.3 F 04/27/17 20:00 98.3 F 106 H 20 98 Weight Admit Weight 108 lb 14.4 oz Weight 109 lb 12.643 oz Most Recent Monitor Data Heart Rate from ECG 74 NIBP 112/74 NIBP BP-Mean 84 Respiration from ECG 26 SpO2 100 I&O: 04/27/17 04/28/17 04/29/17 06:59 06:59 06:59 Intake Total 2894 2811 Output Total 3525 2450 Balance -631 361 Result Diagrams: 04/27/17 20:25 04/27/17 Unknown Phys Exam - Physical Examination Neck: no JVD good BS, few scattered rhonchi Cardiovascular: RRR, no significant murmur Gastrointestinal: soft, positive bowel sounds Musculoskeletal: no edema Dx/Plan (1) Sepsis due to methicillin resistant Staphylococcus aureus Code(s): A41.02 - SEPSIS DUE TO METHICILLIN RESISTANT STAPHYLOCOCCUS AUREUS Status: Acute (2) MRSA pneumonia Code(s): J15.212 - PNEUMONIA DUE TO METHICILLIN RESISTANT STAPHYLOCOCCUS AUREUS Status: Acute Qualifiers: Laterality: bilateral Comment: Cavitary areas noted with MRSA bacteremia, continue Vancomycin, Pulmonology consultation (3) Renal infarct Code(s): N28.0 - ISCHEMIA AND INFARCTION OF KIDNEY Status: Acute Comment: Likely bilat renal infarctions, Nephrology consult, continue IVF's, d/c Heparin (4) Septic embolism Code(s): I26.90 - SEPTIC PULMONARY EMBOLISM WITHOUT ACUTE COR PULMONALE Status : Suspected Comment: See above (5) Hemoptysis Code(s): R04.2 - HEMOPTYSIS Status: Acute (6) Parapneumonic effusion Code(s): J18.9 - PNEUMONIA, UNSPECIFIED ORGANISM; J91.8 - PLEURAL EFFUSION IN OTHER CONDITIONS CLASSIFIED ELSEWHERE Status: Acute - Plan post thoracentesis-parapneumonic effusion -: marked clinical improvement -: ADALBERTO today -: cont vancomycin * .
[2017-04-28 08:02] LABS: #Lymphocytes 1.1 thou/uL (1.20-3.40); #Monocytes 0.2 thou/uL (0.11-0.59); #Neutrophils 6.7 thou/uL (1.40-6.50); %Basophils 0.1 % (0.0-1.0); %Eosinophils 0.6 % (0.0-10.0); %Lymphocytes 13.1 % (28.0-48.0); %Monocytes 2.4 % (0.0-4.0); %Neutrophils 83.8 % (31.0-61.0); Hemoglobin 7.4 g/dL (12.0-16.0); Mean Corpuscular HGB CONC 31.8 g/dL (32.0-36.0); Mean Corpuscular Hemoglobin 30.5 pg (25.0-35.0); Mean Platelet Volume 6.4 fL (7.4-10.4); Platelet Count 394 thou/uL (130-400); RBC Distribution Width 12.3 % (11.5-14.5); Red Blood Cell (RBC) Count 2.41 mill/uL (4.00-5.20)
[2017-04-28 08:05] LABS: Anion Gap 10 mmol/L (10-20); BUN (Urea Nitrogen) 10 mg/dL (7.0-18.7); Calc. Creatinine Clearance 153 mL/min (70-130); Calcium 7.6 mg/dL (7.8-10.44); Carbon Dioxide 21 mmol/L (22-29); Chloride 113 mmol/L (98-107); Estimated GFR-MDRD Greater than 90; Glucose 119 mg/dL (70-105); Potassium 4.1 mmol/L (3.5-5.1); Sodium 140 mmol/L (136-145)
--- NOTE | 2017-04-28 09:02 | PRG ---
DATE OF SERVICE: 04/28/2017 Ms. Davalos this morning is awake, alert, responsive. She underwent a thoracentesis of 600 mL of the left chest. PHYSICAL EXAMINATION: VITAL SIGNS: Pulse is 70, respirations 20, blood pressure is 120/74. CHEST: Chest revealed decreased breath sounds bilaterally. CARDIAC: Sinus tachycardia. ABDOMEN: Soft, no masses. LABORATORY: White count 8,000, H&H is 7 and 23, platelet count 394. Electrolytes are normal. IMPRESSION: 1. Staph sepsis. 2. Left pleural effusion. 3. Cavitary infiltrate. 4. Severe deconditioning. Pleural effusion appears to be a transudate, more than likely is parapneumonic. IMPRESSION: Left pleural effusion, bilateral cavitary infiltrate. PLAN: She is on Zyvox, vancomycin, steroids, neb treatments, supportive care. Will undergo a ADALBERTO for endocarditis. I will follow.
[2017-04-28] MEDS: Linezolid 600 MG in Premix Bag 1 BAG IVPB SCH ×2 (09:13→21:05)
[2017-04-28] MEDS: Famotidine 20 MG TAB PO SCH ×2 (09:14→21:05)
[2017-04-28] MEDS: Benzonatate 100 MG CAP PO SCH ×3 (09:14→21:05)
[2017-04-28] MEDS: guaiFENesin ER 600 MG TAB PO SCH ×2 (09:14→21:05)
--- NOTE | 2017-04-28 09:38 | PRG ---
DATE OF SERVICE: 04/28/2017 RENAL MEDICINE SUBJECTIVE: Ms. Davalos is a 22-year-old white female who was seen by the Renal Service for renal inf arction secondary to presumptive infectious emboli. She was also noted to have MRSA bacteremia and p neumonia. Yesterday, she underwent thoracentesis with about 600 mL of fluid removed. She is feeling better since that procedure was done. In addition, she developed V-tach after a PICC line insertion . She was transferred to ICU for further observation. V-tach spontaneously resolved. No new compla ints today, no chest pain or shortness of breath. PHYSICAL EXAMINATION: VITAL SIGNS: Blood pressure is 109/69, heart rate 107, respiratory rate 24. GENERAL: Awake, alert, sitting comfortable, not in distress. SKIN: Adequate turgor. HEENT: Slightly pale conjunctivae, anicteric sclerae. NECK: No neck mass, no carotid bruits, no JVD. CHEST: No deformities. LUNGS: Decreased breath sounds. HEART: Normal sinus rhythm. No murmurs, no gallops, no rubs. ABDOMEN: Globular, soft, nontender, no masses. EXTREMITIES: No edema. MEDICATIONS: Medications of 04/28/2017 reviewed. LABORATORY DATA: Laboratories of 04/28/2017; white count 8, hemoglobin 7.4, hematocrit 23.2. Sodium 140, potassium 4.1, chloride 103, carbon dioxide 21, BUN 10, creatinine 0.46, and calcium 7.6. ASSESSMENT AND PLAN: 1. Renal infarction - presumptive septic emboli. Currently on IV antibiotics. Stable renal functio n. There is no indication for any emergent dialysis with this patient. Coag studies so far has been negative. The lupus anticoagulant is negative. In addition, serological workup for lupus was also said to be negative. 2. Acute lung abscess - about 500 mL of pleural fluid was pulled out and this improved her respirati on. She is breathing much better. Overall, prognosis remains guarded with this patient. Agree with current management. Check basic metabolic panel and CBC in a.m.
[2017-04-28] MEDS ORDERED: Propofol 1,000 MG/100 ML VIAL IV ONE (10:10)
--- NOTE | 2017-04-28 11:30 | ECHO ---
TRANSESOPHAGEAL ECHOCARDIOGRAM: DATE OF SERVICE: 04/28/17 PREPROCEDURE DIAGNOSIS: MRSA bacteremia. SUMMARY: Ms. Davalos is a pleasant 22-year-old female who comes to the hospital for pneumonia and diagnosed wit h MRSA bacteremia. She was sedated by the Anesthesia Department. Please see their notes for details. After adequate sedation was achieved, the transesophageal probe was inserted into the mouth and into the esophagus with no issue. Multiplanar views were then obtained. FINDINGS: Left ventricle appears to be normal size with normal wall thickness. Systolic function is normal. EF estimated 55-60%. No regional wall motion abnormalities. Left atrium is normal size. Left atrial appendage is large without evidence of mass or thrombus. Right atrium is normal size. Right ventricle is normal size with normal systolic function. Aortic valve is structurally normal. Three cusps. No stenosis or regurgitation. No vegetations. Mitral valve is structurally normal. No stenosis or regurgitation. No vegetations. Tricuspid valve structurally normal. Mild TR. No vegetations. Pulmonary valve structurally normal. No stenosis or regurgitation. No vegetations. Thoracic aorta is without aneurysmal dilatations. CONCLUSIONS: 1. Normal systolic function, EF of 55-60%. 2. Mild TR. 3. No evidence of vegetations on any of the valvular structures or cardiac structures.
--- NOTE | 2017-04-28 13:48 | PRG ---
DATE OF SERVICE: 04/27/2017 HISTORY OF PRESENT ILLNESS: The patient was transferred to the ICU after she became tachycardic, the PICC line was identified further into the right ventricle and has been removed a few centimeters and now is in the right place. The patient had a thoracentesis, the results are discussed below. She h ad an eye exam by Dr. Camacho, unfortunately the patient could not tolerate the exam. I discussed fi ndings and Dr. Camacho felt that she did have abnormalities in the left eye which were serious sugges tive of intraocular as well as retinal involvement potentially by the methicillin-resistant Staphyloc occus aureus infection. PHYSICAL EXAMINATION: VITAL SIGNS: T-max 102 at 3:40 p.m. HEENT: Ocular movements conjugate. LUNGS: Diminished breath sounds at the bases, particularly on the left side, a few crackles here and there. HEART: S1, S2, regular rate. ABDOMEN: Soft, not distended. BACK: No back tenderness. EXTREMITIES: No joint inflammatory activity noted. NEUROLOGIC: She is awake, alert, oriented. LABORATORY DATA: White cell count is 10.9, hemoglobin 8.1, platelets 407 and creatinine 0.46. Thora centesis fluid with 1040 WBCs, predominance of lymphocytes. Pleural LDH 360, total protein 2.8, albu min is 2.2. It appears to be an exudate. The pH was 7.39. Microbiology; pleural fluid cultures pen ding. Blood cultures have been repeated and negative from the previous samples. She had a transesop hageal echocardiogram and it showed normal systolic function, no evidence of vegetations. ASSESSMENT: Methicillin-resistant Staphylococcus aureus bacteremia with pneumonia, community acquire d, post-influenza likely also with splenic infarcts. ADALBERTO did not show any evidence of endocarditis. The patient is currently on vancomycin and Zyvox added because of better lung penetration and due to persistence of fever on vancomycin alone. Increase vancomycin dose with a target of 15-20 in mind. The patient had a foot x-ray and this appeared to be normal.
[2017-04-28] MEDS: Acetaminophen 325 MG TAB PO PRN ×2 (14:41→18:09)
[2017-04-28 17:15] LABS: Cytoplasmic (C-ANCA) <1:20 titer (Neg:<1:20); Myeloperoxidase AutoAbs <9.0 U/mL (0.0-9.0); Perinuclear (P-ANCA) <1:20 titer (Neg:<1:20); Proteinase-3 AutoAbs Less than 3.5 U/mL (0.0-3.5)
[2017-04-28] MEDS: Acetaminophen/Codeine 30-300mg Tablet PO PRN (22:15)
[2017-04-29] MEDS: Sodium Chloride 0.9% 1,000 ML IV SCH ×3 (00:30→15:00)
[2017-04-29] MEDS: Vancomycin HCl 1.25 GM in Sodium Chloride 0.9% 250 ML 250 ML IVPB SCH ×3 (02:44→14:42)
[2017-04-29] MEDS: Ipratropium Bromide 2.5 ml Neb NEB SCH ×7 (03:46→22:32)
[2017-04-29] MEDS: Acetaminophen/Codeine 30-300mg Tablet PO PRN (04:45)
[2017-04-29 05:32] LABS: #Eosinphils 0.1 thou/uL (0.0-0.7); #Lymphocytes 1.1 thou/uL (1.20-3.40); #Monocytes 0.3 thou/uL (0.11-0.59); #Neutrophils 8.1 thou/uL (1.40-6.50); %Basophils 0.4 % (0.0-1.0); %Eosinophils 1.3 % (0.0-10.0); %Lymphocytes 11.3 % (28.0-48.0); %Monocytes 3.1 % (0.0-4.0); %Neutrophils 83.9 % (31.0-61.0); Hemoglobin 8.1 g/dL (12.0-16.0); Mean Corpuscular Hemoglobin 30.2 pg (25.0-35.0); Mean Corpuscular Volume 94.3 fl (77.0-87.0); Mean Platelet Volume 6.4 fL (7.4-10.4); Platelet Count 425 thou/uL (130-400); RBC Distribution Width 12.3 % (11.5-14.5); Red Blood Cell (RBC) Count 2.68 mill/uL (4.00-5.20); White Blood Cell (WBC) Count 9.6 thou/uL (4.8-10.8)
[2017-04-29 05:51] LABS: Anion Gap 11 mmol/L (10-20); BUN (Urea Nitrogen) 15 mg/dL (7.0-18.7); Calc. Creatinine Clearance 133 mL/min (70-130); Calcium 8.2 mg/dL (7.8-10.44); Carbon Dioxide 19 mmol/L (22-29); Chloride 113 mmol/L (98-107); Estimated GFR-MDRD Greater than 90; Glucose 124 mg/dL (70-105); Potassium 4.7 mmol/L (3.5-5.1); Sodium 138 mmol/L (136-145)
[2017-04-29] MEDS: Famotidine 20 MG TAB PO SCH ×2 (08:26→21:50)
[2017-04-29] MEDS: guaiFENesin ER 600 MG TAB PO SCH ×2 (08:26→21:50)
[2017-04-29] MEDS: Benzonatate 100 MG CAP PO SCH ×3 (08:27→21:50)
--- NOTE | 2017-04-29 08:40 | PDOC.PN ---
- Subjective Encounter Start Date: 04/29/17 Encounter Start Time: 08:38 Subjective: no fever, chills, sob - Objective MAR Reviewed: Yes Vital Signs & Weight: Vital Signs (12 hours) Temp Pulse Resp BP BP Pulse Ox 04/29/17 08:30 97.9 F 70 16 112/78 97 04/29/17 07:33 76 14 97 04/29/17 04:45 97.7 F 73 18 118/80 95 04/29/17 03:46 96 04/29/17 00:00 98 Weight Admit Weight 108 lb 14.4 oz Weight 109 lb 12.643 oz Most Recent Monitor Data Heart Rate from ECG 80 NIBP 112/76 NIBP BP-Mean 84 Respiration from ECG 25 SpO2 100 I&O: 04/28/17 04/29/17 04/30/17 06:59 06:59 06:59 Intake Total 2811 2335 Output Total 2450 1200 Balance 361 1135 Result Diagrams: 04/29/17 04:38 04/29/17 04:38 Phys Exam - Physical Examination BS improved, still has rales bilat, R>L Cardiovascular: RRR Gastrointestinal: soft, positive bowel sounds Musculoskeletal: no edema Dx/Plan (1) Sepsis due to methicillin resistant Staphylococcus aureus Code(s): A41.02 - SEPSIS DUE TO METHICILLIN RESISTANT STAPHYLOCOCCUS AUREUS Status: Acute (2) MRSA pneumonia Code(s): J15.212 - PNEUMONIA DUE TO METHICILLIN RESISTANT STAPHYLOCOCCUS AUREUS Status: Acute Qualifiers: Laterality: bilateral Comment: Cavitary areas noted with MRSA bacteremia, continue Vancomycin, Pulmonology consultation (3) Renal infarct Code(s): N28.0 - ISCHEMIA AND INFARCTION OF KIDNEY Status: Acute Comment: Likely bilat renal infarctions, Nephrology consult, continue IVF's, d/c Heparin (4) Septic embolism Code(s): I26.90 - SEPTIC PULMONARY EMBOLISM WITHOUT ACUTE COR PULMONALE Status : Suspected Comment: See above (5) Hemoptysis Code(s): R04.2 - HEMOPTYSIS Status: Acute (6) Parapneumonic effusion Code(s): J18.9 - PNEUMONIA, UNSPECIFIED ORGANISM; J91.8 - PLEURAL EFFUSION IN OTHER CONDITIONS CLASSIFIED ELSEWHERE Status: Acute - Plan cont iv vancomycin, zyvox -: pleural fluid C&S neg at 36hrs -: ADALBERTO neg for vegetations * .
[2017-04-29] MEDS: Linezolid 600 MG in Premix Bag 1 BAG IVPB SCH ×2 (09:07→21:51)
--- NOTE | 2017-04-29 09:33 | PRG ---
DATE OF SERVICE: 04/22/2017 RENAL MEDICINE SUBJECTIVE: Ms. Davalos is a 22-year-old white female who was initially seen by the Renal Service due to finding on CAT scan of ? of renal infarct. She had persistent bilateral nephrogram. At that gokul e, the differential included episode of hypertension, renal artery stenosis, renal vein thrombosis, p apillary necrosis or cortical necrosis. I doubt she has these things since her renal function is actually normal. The low dense lesions coul d be secondary to an embolic phenomenon from her underlying sepsis. So far the thrombosis panel is not indicative of an outright hypercoagulability with this patient. H er D-dimer was mildly elevated at 8.7. Her lupus anticoagulant was negative. Her protein C was with in normal. Her antithrombin 3 is normal. Her factor VIII activity was actually noted slightly eleva sandra at 331. For the moment, we will be continuing current management. I do not see any overt indica tion for full anticoagulation with this patient. She also had a thoracentesis done and so far the cu ltures are pending. Please note 500 mL of fluid was removed with the thoracentesis. Her breathing i s much better. She continues to be on IV antibiotics. No new complaints today. PHYSICAL EXAMINATION: VITAL SIGNS: Blood pressure 112/78, heart rate 70, respiratory rate 16, temperature 97.9, pulse ox 9 7%. GENERAL: Awake, alert, comfortable. SKIN: Adequate turgor. HEENT: Pinkish conjunctivae. Anicteric sclerae. NECK: No neck mass, no carotid bruits, no JVD. CHEST: No deformities. LUNGS: Decreased breath sounds. HEART: Normal sinus rhythm. No murmurs, no gallops, no rubs. ABDOMEN: Globular, soft, nontender, no masses. EXTREMITIES: No edema, no deformities. MEDICATIONS: Medications of 04/29/2017 reviewed. LABORATORY DATA: Laboratories of 04/29/3017; white count 9.6, hemoglobin 8.1. Sodium 138, potassium 4.7, chloride 103, carbon dioxide 19, BUN 15, creatinine 0.53, glucose 124, calcium 8.2. On 04/27/2017, AST 16, ALT 10. SOUTH negative. Total ANCA is negative. ANCA pattern is negative. Anti-dsDNA negative. Cardiolipin IGG all pending. She does have an atypical p-ANCA of 1:160. ASSESSMENT AND PLAN: 1. Renal infarct? - could be from septic emboli. Continue IV antibiotics. I am less suspicious for thromboembolic phenomenon with this patient. Please note that the patient's renal function has chary ined stable at the present time. I am less suspicious for a truly underlying vasculitis. 2. Pulmonary abscess/bacteremia - ADALBERTO was done and it showed no evidence of infective endocarditis. She is currently being treated with Zyvox and IV vancomycin. Infectious Disease is following. 3. Positive atypical ANCA - as per suggestion by the lab this could be related to an ulcerative coli tis, autoimmune hepatitis, or primary sclerosing cholangitis. Clinically, she does not present with any of these things. In the future, we could probably consider a GI consult. Overall, agree with cu rrent management. We will be signing off. Please recall if needed.
--- NOTE | 2017-04-29 09:44 | PRG ---
DATE OF SERVICE: 04/29/2017 This morning she is awake, alert, responsive. She is better. She is less short of breath. Cough is still there. PHYSICAL EXAMINATION: VITAL SIGNS: Sats are 100% on room air. Temperature 97, blood pressure 120/78. CHEST: Chest reveals no wheezing. CARDIAC: Normal S1, S2. ABDOMEN: Soft, no masses. Electrolytes are normal. White count is normal. Her ANCA was negative. IMPRESSION: 1. Cavitary pneumonia, probably Staph sepsis. No evidence of endocarditis. 2. Pleural effusion, status post thoracentesis. 3. Cough. 4. History of lupus. PLAN: I switched her to oral prednisone for 5 days. Antibiotics per Infectious Disease. DISPOSITION: As per Infectious Disease.
[2017-04-29] MEDS ORDERED: Heparin 1,000 UNITS/ML VIAL ONE (13:50)
[2017-04-29 14:02] LABS: Vancomycin, Trough 11.7 ug/mL
[2017-04-29 19:13] LABS: Activated Protein C Resistance 1.8 ratio (.); Hexagonal Phospholipid Neut 5 sec (.)
[2017-04-30] MEDS: Vancomycin HCl 1.25 GM in Sodium Chloride 0.9% 250 ML 250 ML IVPB SCH ×4 (00:12→23:46)
[2017-04-30] MEDS: Acetaminophen/Codeine 30-300mg Tablet PO PRN ×2 (00:17→09:33)
[2017-04-30] MEDS: Ipratropium Bromide 2.5 ml Neb NEB SCH ×6 (02:37→22:46)
[2017-04-30] MEDS: Sodium Chloride 0.9% 1,000 ML IV SCH ×2 (03:29→20:18)
[2017-04-30 04:40] LABS: #Eosinphils 0.4 thou/uL (0.0-0.7); #Lymphocytes 2.1 thou/uL (1.20-3.40); #Monocytes 0.5 thou/uL (0.11-0.59); #Neutrophils 6.7 thou/uL (1.40-6.50); %Basophils 0.2 % (0.0-1.0); %Eosinophils 3.8 % (0.0-10.0); %Lymphocytes 21.5 % (28.0-48.0); %Monocytes 5.5 % (0.0-4.0); %Neutrophils 68.9 % (31.0-61.0); Hemoglobin 7.7 g/dL (12.0-16.0); Mean Corpuscular Hemoglobin 30.1 pg (25.0-35.0); Mean Corpuscular Volume 93.9 fl (77.0-87.0); Mean Platelet Volume 5.5 fL (7.4-10.4); Platelet Count 418 thou/uL (130-400); RBC Distribution Width 12.6 % (11.5-14.5); Red Blood Cell (RBC) Count 2.56 mill/uL (4.00-5.20); White Blood Cell (WBC) Count 9.8 thou/uL (4.8-10.8)
[2017-04-30 05:13] LABS: Anion Gap 8 mmol/L (10-20); BUN (Urea Nitrogen) 15 mg/dL (7.0-18.7); Calc. Creatinine Clearance 133 mL/min (70-130); Calcium 7.8 mg/dL (7.8-10.44); Carbon Dioxide 22 mmol/L (22-29); Chloride 113 mmol/L (98-107); Estimated GFR-MDRD Greater than 90; Glucose 82 mg/dL (70-105); Potassium 3.9 mmol/L (3.5-5.1); Sodium 139 mmol/L (136-145)
--- NOTE | 2017-04-30 08:32 | PDOC.PN ---
- Subjective Encounter Start Date: 04/30/17 Encounter Start Time: 08:31 Subjective: mild cough otherwise ok - Objective MAR Reviewed: Yes Vital Signs & Weight: Vital Signs (12 hours) Temp Pulse Resp BP BP Pulse Ox 04/30/17 08:00 99.3 F 108 H 16 95 04/30/17 07:40 99.3 F 108 H 16 123/81 95 04/30/17 07:00 96 16 04/30/17 04:17 97.6 F 100 20 121/83 93 L 04/30/17 02:37 96 04/30/17 00:18 98.3 F 106 H 18 117/79 96 04/29/17 22:32 97 Weight Admit Weight 108 lb 14.4 oz Weight 133 lb Most Recent Monitor Data Heart Rate from ECG 80 NIBP 112/76 NIBP BP-Mean 84 Respiration from ECG 25 SpO2 100 I&O: 04/29/17 04/30/17 05/01/17 06:59 06:59 06:59 Intake Total 2335 3664 Output Total 1200 2450 Balance 1135 1214 Result Diagrams: 04/30/17 04:16 04/30/17 04:16 Radiology Reviewed by me: Yes (cxr- bilat infiltates effusion, air-fluid level cavity on R) Phys Exam - Physical Examination Neck: no JVD post rales persist Cardiovascular: RRR, no significant murmur Gastrointestinal: soft, positive bowel sounds Dx/Plan (1) Sepsis due to methicillin resistant Staphylococcus aureus Code(s): A41.02 - SEPSIS DUE TO METHICILLIN RESISTANT STAPHYLOCOCCUS AUREUS Status: Acute (2) MRSA pneumonia Code(s): J15.212 - PNEUMONIA DUE TO METHICILLIN RESISTANT STAPHYLOCOCCUS AUREUS Status: Acute Qualifiers: Laterality: bilateral Comment: Cavitary areas noted with MRSA bacteremia, continue Vancomycin, Pulmonology consultation (3) Renal infarct Code(s): N28.0 - ISCHEMIA AND INFARCTION OF KIDNEY Status: Acute Comment: Likely bilat renal infarctions, Nephrology consult, continue IVF's, d/c Heparin (4) Septic embolism Code(s): I26.90 - SEPTIC PULMONARY EMBOLISM WITHOUT ACUTE COR PULMONALE Status : Suspected Comment: See above (5) Hemoptysis Code(s): R04.2 - HEMOPTYSIS Status: Acute (6) Parapneumonic effusion Code(s): J18.9 - PNEUMONIA, UNSPECIFIED ORGANISM; J91.8 - PLEURAL EFFUSION IN OTHER CONDITIONS CLASSIFIED ELSEWHERE Status: Acute - Plan PA&L cxr -: cont iv antibx, vanc levels * .
[2017-04-30] MEDS: predniSONE 20 MG TAB PO SCH (09:32)
[2017-04-30] MEDS: guaiFENesin ER 600 MG TAB PO SCH ×2 (09:32→20:16)
[2017-04-30] MEDS: Famotidine 20 MG TAB PO SCH ×2 (09:33→20:16)
[2017-04-30] MEDS: Benzonatate 100 MG CAP PO SCH ×3 (09:33→20:16)
[2017-04-30] MEDS: Linezolid 600 MG in Premix Bag 1 BAG IVPB SCH ×2 (09:37→20:17)
--- NOTE | 2017-04-30 10:26 | PRG ---
DATE OF SERVICE: 04/30/2017 This morning no shortness of breath. PHYSICAL EXAMINATION: VITAL SIGNS: Sats are 96% on room air, respirations 16, temperature 99, pulse 108. CHEST: Chest reveals bilateral rhonchi and crackles. CARDIAC: Normal S1, S2. No gallops. LABORATORY: White count 9000, H&H is 7 and 24, platelet count is normal. Electrolytes are normal. An APC resistance was noted at 1.8 suggestive of protein C resistance. IMPRESSION: 1. Staph sepsis. 2. A small bilateral pleural effusion. 3. Severe deconditioning. PLAN: From a Pulmonary standpoint of view, she is to continue with antibiotics per Infectious Diseas e. The effusion does not need to be tapped at this stage. I will follow while in the hospital.
--- NOTE | 2017-04-30 10:46 | RAD ---
CHEST 2 VIEWS: Date: 04/30/17 HISTORY: Pneumonia. Follow-up. COMPARISON: 04/27/17. FINDINGS: Cardiac silhouette is upper limits of normal in size. Pulmonary vasculature is within normal limits. Mediastinum is midline. Tip of the right upper extremity PICC now overlies the lower SVC. Cavitary lung masses, detailed on prior CT, are not significantly changed based on radiographic findi ngs. Patient is more upright on this exam. Moderate bilateral pleural effusions are favored to be sta ble. IMPRESSION: Cavitary lung masses, pleural fluid, and other findings are stable. POS: T[facility]
[2017-04-30 14:46] LABS: Vancomycin, Trough 18.7 ug/mL
[2017-05-01] MEDS: Acetaminophen/Codeine 30-300mg Tablet PO PRN (00:33)
[2017-05-01] MEDS: Ipratropium Bromide 2.5 ml Neb NEB SCH ×6 (02:21→22:13)
[2017-05-01] MEDS: Sodium Chloride 0.9% 1,000 ML IV SCH ×2 (06:29→09:31)
[2017-05-01] MEDS: Benzonatate 100 MG CAP PO SCH ×3 (08:01→20:36)
[2017-05-01] MEDS: guaiFENesin ER 600 MG TAB PO SCH ×2 (08:01→20:36)
[2017-05-01] MEDS: Vancomycin HCl 1.25 GM in Sodium Chloride 0.9% 250 ML 250 ML IVPB SCH ×3 (08:01→23:47)
[2017-05-01] MEDS: predniSONE 20 MG TAB PO SCH (08:02)
[2017-05-01] MEDS: Famotidine 20 MG TAB PO SCH ×2 (08:02→20:36)
[2017-05-01] MEDS: Linezolid 600 MG in Premix Bag 1 BAG IVPB SCH ×2 (09:31→20:36)
--- NOTE | 2017-05-01 14:13 | PDOC.PN ---
- Subjective Encounter Start Date: 05/01/17 Encounter Start Time: 14:11 Subjective: seen and examined no new complaint - Objective Vital Signs & Weight: Vital Signs (12 hours) Temp Pulse Resp BP Pulse Ox 05/01/17 11:36 98.4 F 85 16 130/88 96 05/01/17 11:01 112 H 16 05/01/17 08:00 98.1 F 98 16 95 05/01/17 07:59 98.1 F 98 16 122/88 95 05/01/17 06:22 99 F 98 17 118/75 96 05/01/17 02:21 16 Weight Admit Weight 108 lb 14.4 oz Weight 132 lb 9.6 oz Most Recent Monitor Data Heart Rate from ECG 80 NIBP 112/76 NIBP BP-Mean 84 Respiration from ECG 25 SpO2 100 I&O: 04/30/17 05/01/17 05/02/17 06:59 06:59 06:59 Intake Total 3664 2400 Output Total 2450 1300 Balance 1214 1100 Result Diagrams: 04/30/17 04:16 04/30/17 04:16 Phys Exam - Physical Examination Constitutional: NAD HEENT: PERRLA, moist MMs, sclera anicteric, TM's clear, oral pharynx no lesions Neck: no nodes, no JVD, supple, full ROM Respiratory: no wheezing, no rales, no rhonchi, clear to auscultation bilateral Cardiovascular: RRR, no significant murmur, no rub Gastrointestinal: soft, non-tender, no distention, positive bowel sounds Musculoskeletal: no edema, pulses present Dx/Plan (1) Hemoptysis Code(s): R04.2 - HEMOPTYSIS Status: Acute (2) MRSA pneumonia Code(s): J15.212 - PNEUMONIA DUE TO METHICILLIN RESISTANT STAPHYLOCOCCUS AUREUS Status: Acute Qualifiers: Laterality: bilateral Comment: Cavitary areas noted with MRSA bacteremia, continue Vancomycin, Pulmonology consultation (3) Parapneumonic effusion Code(s): J18.9 - PNEUMONIA, UNSPECIFIED ORGANISM; J91.8 - PLEURAL EFFUSION IN OTHER CONDITIONS CLASSIFIED ELSEWHERE Status: Acute (4) Renal infarct Code(s): N28.0 - ISCHEMIA AND INFARCTION OF KIDNEY Status: Acute Comment: Likely bilat renal infarctions, Nephrology consult, continue IVF's, d/c Heparin (5) Sepsis Code(s): A41.9 - SEPSIS, UNSPECIFIED ORGANISM Status: Acute Qualifiers: Sepsis type: methicillin resistant Staphylococcus aureus Qualified Code(s) : A41.02 - Sepsis due to Methicillin resistant Staphylococcus aureus Comment: Continue IVF's, continue Vancomycin with plans for PICC line placement 04/26/17, concern for endocarditis though echo was unrevealing (6) Sepsis due to methicillin resistant Staphylococcus aureus Code(s): A41.02 - SEPSIS DUE TO METHICILLIN RESISTANT STAPHYLOCOCCUS AUREUS Status: Acute (7) Sinus tachycardia Code(s): R00.0 - TACHYCARDIA, UNSPECIFIED Status: Acute Comment: Persistent , continue IVF's, monitor clinically (8) Macrocytic anemia Code(s): D53.9 - NUTRITIONAL ANEMIA, UNSPECIFIED Status: Chronic Comment: ? chronicity, check B12/Folate/Iron/stool hemoccult - Plan plan discussed w/ family, continue antibiotics, PT/OT, older adult social work specialist, respiratory therapy No need to tap the effusion -: D/c IVF * .
--- NOTE | 2017-05-01 17:35 | PRG ---
DATE OF SERVICE: 05/01/2017 SUBJECTIVE: This morning she is better. OBJECTIVE: VITAL SIGNS: She is afebrile, temperature 98, sats 90% on room air, . CHEST: Decreased breath sounds, no wheezing. CARDIAC: Normal S1 and S2. IMPRESSION: 1. Staphylococcus sepsis. 2. Pleural effusion or empyema. DISPOSITION: As per Infectious Disease. Continue supportive care.
[2017-05-02] MEDS: Acetaminophen/Codeine 30-300mg Tablet PO PRN ×3 (01:53→20:44)
[2017-05-02] MEDS: Ipratropium Bromide 2.5 ml Neb NEB SCH ×6 (04:18→22:27)
[2017-05-02] MEDS: Vancomycin HCl 1.25 GM in Sodium Chloride 0.9% 250 ML 250 ML IVPB SCH ×3 (05:59→23:05)
--- NOTE | 2017-05-02 08:53 | PDOC.PN ---
- Subjective Encounter Start Date: 05/02/17 Encounter Start Time: 08:52 Subjective: Seen and examined with no new complaint - Objective Vital Signs & Weight: Vital Signs (12 hours) Temp Pulse Resp BP Pulse Ox 05/02/17 08:35 85 16 05/02/17 07:55 97.8 F 85 22 H 116/77 100 05/02/17 02:59 99.5 F 78 16 118/76 96 05/01/17 23:53 98.6 F 87 16 124/82 96 05/01/17 22:13 95 05/01/17 20:58 98.2 F 90 18 97 05/01/17 20:57 98.2 F 90 18 123/82 97 Weight Admit Weight 108 lb 14.4 oz Weight 124 lb 14.4 oz Most Recent Monitor Data Heart Rate from ECG 80 NIBP 112/76 NIBP BP-Mean 84 Respiration from ECG 25 SpO2 100 I&O: 05/01/17 05/02/17 05/03/17 06:59 06:59 06:59 Intake Total 2400 2047 Output Total 1300 4850 Balance 1100 -2803 Result Diagrams: 04/30/17 04:16 04/30/17 04:16 Phys Exam - Physical Examination Constitutional: NAD HEENT: PERRLA, moist MMs, sclera anicteric, TM's clear, oral pharynx no lesions Neck: no nodes, no JVD, supple, full ROM Respiratory: no wheezing, no rales, no rhonchi, clear to auscultation bilateral Cardiovascular: RRR, no significant murmur, no rub Gastrointestinal: soft, non-tender, no distention, positive bowel sounds Musculoskeletal: no edema, pulses present Dx/Plan (1) Hemoptysis Code(s): R04.2 - HEMOPTYSIS Status: Acute (2) MRSA pneumonia Code(s): J15.212 - PNEUMONIA DUE TO METHICILLIN RESISTANT STAPHYLOCOCCUS AUREUS Status: Acute Qualifiers: Laterality: bilateral Comment: Cavitary areas noted with MRSA bacteremia, continue Vancomycin, Pulmonology consultation (3) Parapneumonic effusion Code(s): J18.9 - PNEUMONIA, UNSPECIFIED ORGANISM; J91.8 - PLEURAL EFFUSION IN OTHER CONDITIONS CLASSIFIED ELSEWHERE Status: Acute (4) Renal infarct Code(s): N28.0 - ISCHEMIA AND INFARCTION OF KIDNEY Status: Acute Comment: Likely bilat renal infarctions, Nephrology consult, continue IVF's, d/c Heparin (5) Sepsis Code(s): A41.9 - SEPSIS, UNSPECIFIED ORGANISM Status: Acute Qualifiers: Sepsis type: methicillin resistant Staphylococcus aureus Qualified Code(s) : A41.02 - Sepsis due to Methicillin resistant Staphylococcus aureus Comment: Continue IVF's, continue Vancomycin with plans for PICC line placement 04/26/17, concern for endocarditis though echo was unrevealing (6) Sepsis due to methicillin resistant Staphylococcus aureus Code(s): A41.02 - SEPSIS DUE TO METHICILLIN RESISTANT STAPHYLOCOCCUS AUREUS Status: Acute (7) Sinus tachycardia Code(s): R00.0 - TACHYCARDIA, UNSPECIFIED Status: Acute Comment: Persistent , continue IVF's, monitor clinically (8) Macrocytic anemia Code(s): D53.9 - NUTRITIONAL ANEMIA, UNSPECIFIED Status: Chronic Comment: ? chronicity, check B12/Folate/Iron/stool hemoccult - Plan cont current plan of care, plan discussed w/ family, continue antibiotics, PT/OT , family welfare social work professor, respiratory therapy On Zyvox/vancomycin * .
[2017-05-02] MEDS: guaiFENesin ER 600 MG TAB PO SCH ×2 (09:36→20:43)
[2017-05-02] MEDS: predniSONE 20 MG TAB PO SCH (09:36)
[2017-05-02] MEDS: Benzonatate 100 MG CAP PO SCH ×3 (09:36→20:42)
[2017-05-02] MEDS: Famotidine 20 MG TAB PO SCH ×2 (09:36→20:43)
[2017-05-02] MEDS: Linezolid 600 MG in Premix Bag 1 BAG IVPB SCH ×2 (09:40→20:45)
[2017-05-02] MEDS ORDERED: Zolpidem Tartrate 5 MG TAB PO PRN (10:42)
[2017-05-02 14:37] LABS: Vancomycin, Trough 18.9 ug/mL
--- NOTE | 2017-05-02 18:38 | PRG ---
DATE OF SERVICE: 05/02/2017 SUBJECTIVE: She is complaining of the right hand PICC line insertion site; it is not red. OBJECTIVE: VITAL SIGNS: Temperature is 97, respirations 16, sat are 100% room air and blood pressure 116/70. CHEST: No crackles. CARDIAC: Normal S1 and S2. ABDOMEN: Soft. No masses. IMPRESSION: Staph sepsis, pleural effusion, no evidence of endocarditis and severe deconditioning. PLAN: Antibiotic, Zyvox and vancomycin. Continue PT, eventually placement.
[2017-05-03] MEDS: Ipratropium Bromide 2.5 ml Neb NEB SCH ×6 (02:21→22:34)
[2017-05-03] MEDS: Vancomycin HCl 1.25 GM in Sodium Chloride 0.9% 250 ML 250 ML IVPB SCH ×3 (06:18→23:36)
--- NOTE | 2017-05-03 09:37 | PRG ---
DATE OF SERVICE: 05/03/2017 SUBJECTIVE: Alisa Davalos is better. Less pain and less cough. Awaiting input from ID. OBJECTIVE: VITAL SIGNS: Blood pressure 132/97, temperature 98, respiration 16, pulse 95. CHEST: No wheezing or crackles. CARDIAC: Normal S1-S2. No gallops. IMPRESSION: Cavitary pneumonia, Staph sepsis, left pleural effusion. No endocarditis. PLAN: Antibiotics, Zyvox, vancomycin. Hopefully, disposition home with IV antibiotics.
[2017-05-03] MEDS: predniSONE 20 MG TAB PO SCH (10:12)
[2017-05-03] MEDS: guaiFENesin ER 600 MG TAB PO SCH ×2 (10:12→21:45)
[2017-05-03] MEDS: Famotidine 20 MG TAB PO SCH ×2 (10:12→21:45)
[2017-05-03] MEDS: Benzonatate 100 MG CAP PO SCH ×3 (10:12→21:45)
[2017-05-03] MEDS: Linezolid 600 MG in Premix Bag 1 BAG IVPB SCH ×2 (10:13→21:45)
--- NOTE | 2017-05-03 11:04 | PDOC.PN ---
- Subjective Encounter Start Date: 05/03/17 Encounter Start Time: 11:03 Patient seen and examined, states she has pain where the PICC line is in in the right arm and also still has the right sided chest pain, mother at bedside, no other new issues overnight, all questions answered. - Objective MAR Reviewed: Yes Vital Signs & Weight: Vital Signs (12 hours) Temp Pulse Resp BP BP Pulse Ox 05/03/17 10:21 96 16 05/03/17 08:15 98.3 F 95 16 128/83 95 05/03/17 04:57 97.9 F 79 14 132/97 H 97 Weight Admit Weight 108 lb 14.4 oz Weight 121 lb Most Recent Monitor Data Heart Rate from ECG 80 NIBP 112/76 NIBP BP-Mean 84 Respiration from ECG 25 SpO2 100 I&O: 05/02/17 05/03/17 05/04/17 06:59 06:59 06:59 Intake Total 2047 1600 Output Total 4850 3600 Balance -2803 -1999 Result Diagrams: 04/30/17 04:16 04/30/17 04:16 Phys Exam - Physical Examination Constitutional: NAD HEENT: PERRLA, moist MMs Neck: no nodes, no JVD, supple Respiratory: no wheezing, no rales, no rhonchi decreased breath sounds left side Cardiovascular: RRR, no significant murmur, no rub Gastrointestinal: soft, non-tender, no distention Musculoskeletal: no edema, pulses present Neurological: non-focal, normal sensation Dx/Plan (1) MRSA pneumonia Code(s): J15.212 - PNEUMONIA DUE TO METHICILLIN RESISTANT STAPHYLOCOCCUS AUREUS Status: Acute Qualifiers: Laterality: bilateral Comment: Cavitary areas noted with MRSA bacteremia, continue Vancomycin, Pulmonology consultation (2) Parapneumonic effusion Code(s): J18.9 - PNEUMONIA, UNSPECIFIED ORGANISM; J91.8 - PLEURAL EFFUSION IN OTHER CONDITIONS CLASSIFIED ELSEWHERE Status: Acute (3) Renal infarct Code(s): N28.0 - ISCHEMIA AND INFARCTION OF KIDNEY Status: Acute Comment: Likely bilat renal infarctions, Nephrology consult, continue IVF's, d/c Heparin (4) Sepsis due to methicillin resistant Staphylococcus aureus Code(s): A41.02 - SEPSIS DUE TO METHICILLIN RESISTANT STAPHYLOCOCCUS AUREUS Status: Acute (5) Sinus tachycardia Code(s): R00.0 - TACHYCARDIA, UNSPECIFIED Status: Acute Comment: Persistent , continue IVF's, monitor clinically (6) Septic embolism Code(s): I26.90 - SEPTIC PULMONARY EMBOLISM WITHOUT ACUTE COR PULMONALE Status : Suspected Comment: See above - Plan * continue current plan of care * IV zyvox, ID managing * continue breathing treatments, pulmonary onboard as well * pain controlled * labs stable * no changes in plan of care for now * further management per subspecialists * case and plan d/w patient and faimily at length, they understand and agree with this plan
--- NOTE | 2017-05-03 18:46 | PRG ---
DATE OF SERVICE: 05/03/2017 SUBJECTIVE: She has been walking and she still has visual blurriness in the left eye. No dyspnea, n o headaches, no abdominal pain or diarrhea. OBJECTIVE: VITAL SIGNS: Blood pressure is 132/97. HEENT: The left pupil is about 4 mm in diameter, the right is 1.5 to 2 mm. Oral cavity is normal. NECK: Supple. LUNGS: Symmetric clear breath sounds. CARDIOVASCULAR: S1, S2, regular rate. EXTREMITIES: Moves all extremities equally. LABORATORY DATA: White cell count 9.8, hemoglobin 10.7, platelets 418. Sodium 139 and creatinine 0. 53. Liver profile is normal. Albumin is 2.2. ASSESSMENT AND DISCUSSION: Methicillin-resistant Staphylococcus aureus pneumonia, bacteremia, spleni c infarcts, likely endocarditis. She probably has endophthalmitis plus/minus retinitis in the left s carly. Consultation with Dr. Li had been placed, but the patient declined exam because of photoph obia. She is currently on vancomycin and Zyvox, improvement in overall status. Still need to reasse ss the eyes status to see if she will need an intravitreal treatment or vitrectomy. The patient will need to continue this regimen until 06/06/2017 approximately.
[2017-05-04] MEDS: Ipratropium Bromide 2.5 ml Neb NEB SCH ×6 (02:25→22:15)
[2017-05-04] MEDS: Acetaminophen/Codeine 30-300mg Tablet PO PRN ×2 (03:32→21:49)
[2017-05-04 04:50] LABS: #Eosinphils 0.2 thou/uL (0.0-0.7); #Lymphocytes 2.2 thou/uL (1.20-3.40); #Monocytes 0.4 thou/uL (0.11-0.59); #Neutrophils 9.4 thou/uL (1.40-6.50); %Basophils 0.3 % (0.0-1.0); %Eosinophils 1.6 % (0.0-10.0); %Lymphocytes 18.2 % (28.0-48.0); %Monocytes 2.9 % (0.0-4.0); Hemoglobin 8.4 g/dL (12.0-16.0); Mean Corpuscular HGB CONC 32.9 g/dL (32.0-36.0); Mean Corpuscular Hemoglobin 30.6 pg (25.0-35.0); Mean Platelet Volume 5.2 fL (7.4-10.4); Platelet Count 419 thou/uL (130-400); RBC Distribution Width 14.3 % (11.5-14.5); Red Blood Cell (RBC) Count 2.75 mill/uL (4.00-5.20); White Blood Cell (WBC) Count 12.2 thou/uL (4.8-10.8)
[2017-05-04 05:06] LABS: Anion Gap 14 mmol/L (10-20); BUN (Urea Nitrogen) 14 mg/dL (7.0-18.7); Calc. Creatinine Clearance 136 mL/min (70-130); Calcium 8.8 mg/dL (7.8-10.44); Carbon Dioxide 24 mmol/L (22-29); Chloride 103 mmol/L (98-107); Estimated GFR-MDRD Greater than 90; Glucose 107 mg/dL (70-105); Potassium 3.7 mmol/L (3.5-5.1); Sodium 137 mmol/L (136-145)
[2017-05-04] MEDS: Vancomycin HCl 1.25 GM in Sodium Chloride 0.9% 250 ML 250 ML IVPB SCH ×3 (06:14→23:22)
[2017-05-04] MEDS: Linezolid 600 MG in Premix Bag 1 BAG IVPB SCH ×2 (09:28→20:29)
[2017-05-04] MEDS: Famotidine 20 MG TAB PO SCH ×2 (09:29→20:30)
[2017-05-04] MEDS: predniSONE 20 MG TAB PO SCH (09:29)
[2017-05-04] MEDS: Benzonatate 100 MG CAP PO SCH ×3 (09:29→20:30)
[2017-05-04] MEDS: guaiFENesin ER 600 MG TAB PO SCH ×2 (09:29→20:30)
--- NOTE | 2017-05-04 15:35 | PDOC.PN ---
- Subjective Encounter Start Date: 05/04/17 Encounter Start Time: 15:34 Patient seen and examined, no new issues, family at bedside, all questions answered. - Objective MAR Reviewed: Yes Vital Signs & Weight: Vital Signs (12 hours) Temp Pulse Resp BP Pulse Ox 05/04/17 11:20 96.8 F L 80 16 118/75 98 05/04/17 09:43 95 16 98 05/04/17 07:30 96.9 F L 86 16 105/66 96 05/04/17 03:59 97.6 F 80 18 113/70 Weight Admit Weight 108 lb 14.4 oz Weight 121 lb 12.8 oz Most Recent Monitor Data Heart Rate from ECG 80 NIBP 112/76 NIBP BP-Mean 84 Respiration from ECG 25 SpO2 100 I&O: 05/03/17 05/04/17 05/05/17 06:59 06:59 06:59 Intake Total 1600 708 240 Output Total 3600 1000 Balance -2000 -292 240 Result Diagrams: 05/04/17 04:29 05/04/17 04:29 Phys Exam - Physical Examination Constitutional: NAD HEENT: PERRLA, moist MMs, sclera anicteric Neck: no nodes, no JVD, supple Respiratory: no wheezing, no rales, no rhonchi, clear to auscultation bilateral Cardiovascular: RRR, no significant murmur, no rub Gastrointestinal: soft, non-tender, no distention Musculoskeletal: no edema, pulses present Dx/Plan (1) MRSA pneumonia Code(s): J15.212 - PNEUMONIA DUE TO METHICILLIN RESISTANT STAPHYLOCOCCUS AUREUS Status: Acute Qualifiers: Laterality: bilateral Comment: Cavitary areas noted with MRSA bacteremia, continue Vancomycin, Pulmonology consultation (2) Parapneumonic effusion Code(s): J18.9 - PNEUMONIA, UNSPECIFIED ORGANISM; J91.8 - PLEURAL EFFUSION IN OTHER CONDITIONS CLASSIFIED ELSEWHERE Status: Acute (3) Renal infarct Code(s): N28.0 - ISCHEMIA AND INFARCTION OF KIDNEY Status: Acute Comment: Likely bilat renal infarctions, Nephrology consult, continue IVF's, d/c Heparin (4) Sepsis due to methicillin resistant Staphylococcus aureus Code(s): A41.02 - SEPSIS DUE TO METHICILLIN RESISTANT STAPHYLOCOCCUS AUREUS Status: Acute (5) Sinus tachycardia Code(s): R00.0 - TACHYCARDIA, UNSPECIFIED Status: Acute Comment: Persistent , continue IVF's, monitor clinically (6) Septic embolism Code(s): I26.90 - SEPTIC PULMONARY EMBOLISM WITHOUT ACUTE COR PULMONALE Status : Suspected Comment: See above - Plan * continue dual abx for now, ID to decide duration and dosage (zyvox and vanc) * no other changes in plan from a medical perspective * labs in AM * PICC line to be redone in the near future * further management per subspecialists * case and plan d/w patient and mother at length, she understands and agrees with this plan
--- NOTE | 2017-05-04 20:15 | EKG ---
Test Reason : Blood Pressure : / mmHG Vent. Rate : 112 BPM Atrial Rate : 112 BPM P-R Int : 144 ms QRS Dur : 080 ms QT Int : 330 ms P-R-T Axes : 025 056 069 degrees QTc Int : 450 ms Sinus tachycardia Otherwise normal ECG When compared with ECG of 23-APR-2017 18:33, (Unconfirmed) T wave inversion no longer evident in Anterior leads Confirmed by MALENA SY (2) on 05/04/2017 8:15:15 PM Referred By: ABIMAEL Confirmed By:MALENA SY
[2017-05-05] MEDS: Ipratropium Bromide 2.5 ml Neb NEB SCH ×6 (00:38→21:51)
[2017-05-05] MEDS: Vancomycin HCl 1.25 GM in Sodium Chloride 0.9% 250 ML 250 ML IVPB SCH ×3 (06:00→23:07)
[2017-05-05] MEDS: Benzonatate 100 MG CAP PO SCH ×3 (08:05→20:53)
[2017-05-05] MEDS: Linezolid 600 MG in Premix Bag 1 BAG IVPB SCH ×2 (08:05→20:53)
[2017-05-05] MEDS: Famotidine 20 MG TAB PO SCH ×2 (08:05→20:53)
[2017-05-05] MEDS: predniSONE 20 MG TAB PO SCH (08:05)
[2017-05-05] MEDS: guaiFENesin ER 600 MG TAB PO SCH ×2 (08:05→20:53)
[2017-05-05 14:33] LABS: Vancomycin, Trough 17.9 ug/mL
--- NOTE | 2017-05-05 16:56 | PDOC.PN ---
- Subjective Encounter Start Date: 05/05/17 Encounter Start Time: 16:52 CC: cough sub: pt denies dyspnea - Objective Vital Signs & Weight: Vital Signs (12 hours) Temp Pulse Resp BP BP Pulse Ox 05/05/17 14:51 110 H 18 95 05/05/17 12:50 98.6 F 108 H 18 119/70 99 05/05/17 10:29 104 H 16 96 05/05/17 07:00 98.4 F 89 18 121/79 98 05/05/17 05:18 97.6 F 94 18 113/77 96 Weight Admit Weight 108 lb 14.4 oz Weight 121 lb 11.2 oz Most Recent Monitor Data Heart Rate from ECG 80 NIBP 112/76 NIBP BP-Mean 84 Respiration from ECG 25 SpO2 100 I&O: 05/04/17 05/05/17 05/06/17 06:59 06:59 06:59 Intake Total 708 2390 Output Total 1000 2200 Balance -292 190 Result Diagrams: 05/04/17 04:29 05/04/17 04:29 Dx/Plan - Plan Physical Examination Constitutional: NAD HEENT: PERRLA, moist MMs, sclera anicteric Neck: no nodes, no JVD, supple Respiratory: no wheezing, no rales, no rhonchi, clear to auscultation bilateral Cardiovascular: RRR, no significant murmur, no rub Gastrointestinal: soft, non-tender, no distention Musculoskeletal: no edema, pulses present Dx/Plan (1) MRSA pneumonia Code(s): J15.212 - PNEUMONIA DUE TO METHICILLIN RESISTANT STAPHYLOCOCCUS AUREUS Status: Acute Qualifiers: Laterality: bilateral Comment: Cavitary areas noted with MRSA bacteremia, continue Vancomycin, Pulmonology consultation (2) Parapneumonic effusion Code(s): J18.9 - PNEUMONIA, UNSPECIFIED ORGANISM; J91.8 - PLEURAL EFFUSION IN OTHER CONDITIONS CLASSIFIED ELSEWHERE Status: Acute (3) Renal infarct Code(s): N28.0 - ISCHEMIA AND INFARCTION OF KIDNEY Status: Acute Comment: Likely bilat renal infarctions, Nephrology consult, continue IVF's, d/c Heparin (4) Sepsis due to methicillin resistant Staphylococcus aureus Code(s): A41.02 - SEPSIS DUE TO METHICILLIN RESISTANT STAPHYLOCOCCUS AUREUS Status: Acute (5) Sinus tachycardia Code(s): R00.0 - TACHYCARDIA, UNSPECIFIED Status: Acute Comment: Persistent , continue IVF's, monitor clinically (6) Septic embolism Code(s): I26.90 - SEPTIC PULMONARY EMBOLISM WITHOUT ACUTE COR PULMONALE Status : Suspected Comment: See above - Plan * continue iv antibiotics * appreciate id input * labs in AM * PICC line to be redone in the near future , PICC line site clean * case and plan d/w patient and mother at length, she understands and agrees with this plan case d/w pt & RN
[2017-05-06] MEDS: Ipratropium Bromide 2.5 ml Neb NEB SCH ×6 (02:09→22:24)
[2017-05-06 04:41] LABS: #Basophils 0.1 thou/uL (0.0-0.2); #Eosinphils 0.3 thou/uL (0.0-0.7); #Lymphocytes 2.8 thou/uL (1.20-3.40); #Monocytes 0.7 thou/uL (0.11-0.59); #Neutrophils 7.8 thou/uL (1.40-6.50); %Basophils 0.5 % (0.0-1.0); %Eosinophils 2.9 % (0.0-10.0); %Lymphocytes 24.2 % (28.0-48.0); %Monocytes 5.7 % (0.0-4.0); %Neutrophils 66.6 % (31.0-61.0); Hemoglobin 8.3 g/dL (12.0-16.0); Mean Corpuscular HGB CONC 32.5 g/dL (32.0-36.0); Mean Corpuscular Hemoglobin 30.1 pg (25.0-35.0); Mean Corpuscular Volume 92.7 fl (77.0-87.0); Mean Platelet Volume 5.1 fL (7.4-10.4); Platelet Count 376 thou/uL (130-400); RBC Distribution Width 15.3 % (11.5-14.5); Red Blood Cell (RBC) Count 2.76 mill/uL (4.00-5.20); White Blood Cell (WBC) Count 11.7 thou/uL (4.8-10.8)
[2017-05-06 04:55] LABS: Anion Gap 11 mmol/L (10-20); BUN (Urea Nitrogen) 14 mg/dL (7.0-18.7); Calc. Creatinine Clearance 148 mL/min (70-130); Calcium 8.9 mg/dL (7.8-10.44); Carbon Dioxide 28 mmol/L (22-29); Chloride 105 mmol/L (98-107); Estimated GFR-MDRD Greater than 90; Glucose 85 mg/dL (70-105); Potassium 3.9 mmol/L (3.5-5.1); Sodium 140 mmol/L (136-145)
[2017-05-06] MEDS: Vancomycin HCl 1.25 GM in Sodium Chloride 0.9% 250 ML 250 ML IVPB SCH ×3 (06:27→22:41)
[2017-05-06] MEDS: Linezolid 600 MG in Premix Bag 1 BAG IVPB SCH ×2 (08:55→20:05)
[2017-05-06] MEDS: Famotidine 20 MG TAB PO SCH ×2 (09:02→20:06)
[2017-05-06] MEDS: Benzonatate 100 MG CAP PO SCH ×3 (09:02→20:05)
[2017-05-06] MEDS: guaiFENesin ER 600 MG TAB PO SCH ×2 (09:02→20:06)
--- NOTE | 2017-05-06 15:16 | PDOC.PN ---
- Subjective Encounter Start Date: 05/06/17 Encounter Start Time: 15:14 CC; Cough sub: pt c/o intermittent bluddy vision left eye - Objective Vital Signs & Weight: Vital Signs (12 hours) Temp Pulse Resp BP Pulse Ox 05/06/17 11:19 98.4 F 104 H 20 119/56 L 96 05/06/17 10:08 101 H 18 97 05/06/17 08:50 98.1 F 94 16 107/64 97 05/06/17 06:44 97 16 99 05/06/17 04:00 98.0 F 78 16 99/61 98 Weight Admit Weight 108 lb 14.4 oz Weight 120 lb 6.4 oz Most Recent Monitor Data Heart Rate from ECG 80 NIBP 112/76 NIBP BP-Mean 84 Respiration from ECG 25 SpO2 100 I&O: 05/05/17 05/06/17 05/07/17 06:59 06:59 06:59 Intake Total 2390 1090 Output Total 2200 Balance 190 1090 Result Diagrams: 05/06/17 04:16 05/06/17 04:16 Dx/Plan - Plan Physical Examination Constitutional: NAD HEENT: PERRLA, moist MMs, sclera anicteric Neck: no nodes, no JVD, supple Respiratory: no wheezing, no rales, no rhonchi, clear to auscultation bilateral Cardiovascular: RRR, no significant murmur, no rub Gastrointestinal: soft, non-tender, no distention Musculoskeletal: no edema, pulses present Dx/Plan (1) MRSA pneumonia Code(s): J15.212 - PNEUMONIA DUE TO METHICILLIN RESISTANT STAPHYLOCOCCUS AUREUS Status: Acute Qualifiers: Laterality: bilateral Comment: Cavitary areas noted with MRSA bacteremia, continue Vancomycin, Pulmonology consultation (2) Parapneumonic effusion Code(s): J18.9 - PNEUMONIA, UNSPECIFIED ORGANISM; J91.8 - PLEURAL EFFUSION IN OTHER CONDITIONS CLASSIFIED ELSEWHERE Status: Acute (3) Renal infarct Code(s): N28.0 - ISCHEMIA AND INFARCTION OF KIDNEY Status: Acute Comment: Likely bilat renal infarctions, Nephrology consult, continue IVF's, d/c Heparin (4) Sepsis due to methicillin resistant Staphylococcus aureus Code(s): A41.02 - SEPSIS DUE TO METHICILLIN RESISTANT STAPHYLOCOCCUS AUREUS Status: Acute (5) Sinus tachycardia Code(s): R00.0 - TACHYCARDIA, UNSPECIFIED Status: Acute Comment: Persistent , continue IVF's, monitor clinically (6) Septic embolism Code(s): I26.90 - SEPTIC PULMONARY EMBOLISM WITHOUT ACUTE COR PULMONALE Status : Suspected Comment: See above 7. Left eye blurry vision - Plan * continue iv zyvox and vancomycin * Having episodes of tachychardia with ambulation. monitor closely. [facility] mag level. * Will reconsult ophthmology to evaluate patient * appreciate id input * PICC line to be redone in the near future , PICC line site clean * case and plan d/w patient and mother at length, she understands and agrees with this plan * will get pt eval. case d/w pt & RN
[2017-05-06] MEDS ORDERED: Sodium Chloride 0.9% 10 ML ONE (15:40)
[2017-05-07] MEDS: Ipratropium Bromide 2.5 ml Neb NEB SCH ×6 (02:08→22:29)
[2017-05-07 06:05] LABS: Anion Gap 14 mmol/L (10-20); BUN (Urea Nitrogen) 15 mg/dL (7.0-18.7); Calc. Creatinine Clearance 133 mL/min (70-130); Calcium 9.4 mg/dL (7.8-10.44); Carbon Dioxide 26 mmol/L (22-29); Chloride 101 mmol/L (98-107); Estimated GFR-MDRD Greater than 90; Glucose 82 mg/dL (70-105); Magnesium 1.9 mg/dL (1.7-2.2); Potassium 4.3 mmol/L (3.5-5.1); Sodium 137 mmol/L (136-145)
[2017-05-07] MEDS: Vancomycin HCl 1.25 GM in Sodium Chloride 0.9% 250 ML 250 ML IVPB SCH ×2 (06:13→13:59)
--- NOTE | 2017-05-07 09:07 | PDOC.PN ---
- Subjective Encounter Start Date: 05/07/17 Encounter Start Time: 09:06 Subjective: seen and examined feeling ok but with blurry vision - Objective Vital Signs & Weight: Vital Signs (12 hours) Temp Pulse Resp BP Pulse Ox 05/07/17 07:15 106 H 20 96 05/07/17 07:05 98.6 F 106 H 18 102/59 L 96 05/07/17 04:00 98.5 F 113 H 18 110/58 L 96 05/07/17 02:08 115 H 20 96 05/07/17 00:00 99.7 F H 117 H 20 117/56 L 96 05/06/17 22:24 134 H 18 96 Weight Admit Weight 108 lb 14.4 oz Weight 120 lb Most Recent Monitor Data Heart Rate from ECG 80 NIBP 112/76 NIBP BP-Mean 84 Respiration from ECG 25 SpO2 100 I&O: 05/06/17 05/07/17 05/08/17 06:59 06:59 06:59 Intake Total 1090 1050 Output Total 1000 Balance 1090 50 Result Diagrams: 05/06/17 04:16 05/07/17 05:18 Phys Exam - Physical Examination Constitutional: NAD HEENT: PERRLA, moist MMs, sclera anicteric, TM's clear Neck: no nodes, no JVD, supple, full ROM Respiratory: no wheezing, no rales, no rhonchi, clear to auscultation bilateral Cardiovascular: RRR, no significant murmur, no rub Gastrointestinal: soft, non-tender, no distention, positive bowel sounds Musculoskeletal: no edema, pulses present Dx/Plan (1) Hemoptysis Code(s): R04.2 - HEMOPTYSIS Status: Acute (2) MRSA pneumonia Code(s): J15.212 - PNEUMONIA DUE TO METHICILLIN RESISTANT STAPHYLOCOCCUS AUREUS Status: Acute Qualifiers: Laterality: bilateral Comment: Cavitary areas noted with MRSA bacteremia, continue Vancomycin, Pulmonology consultation (3) Parapneumonic effusion Code(s): J18.9 - PNEUMONIA, UNSPECIFIED ORGANISM; J91.8 - PLEURAL EFFUSION IN OTHER CONDITIONS CLASSIFIED ELSEWHERE Status: Acute (4) Renal infarct Code(s): N28.0 - ISCHEMIA AND INFARCTION OF KIDNEY Status: Acute Comment: Likely bilat renal infarctions, Nephrology consult, continue IVF's, d/c Heparin (5) Sepsis Code(s): A41.9 - SEPSIS, UNSPECIFIED ORGANISM Status: Acute Qualifiers: Sepsis type: methicillin resistant Staphylococcus aureus Qualified Code(s) : A41.02 - Sepsis due to Methicillin resistant Staphylococcus aureus Comment: Continue IVF's, continue Vancomycin with plans for PICC line placement 04/26/17, concern for endocarditis though echo was unrevealing (6) Sepsis due to methicillin resistant Staphylococcus aureus Code(s): A41.02 - SEPSIS DUE TO METHICILLIN RESISTANT STAPHYLOCOCCUS AUREUS Status: Acute (7) Sinus tachycardia Code(s): R00.0 - TACHYCARDIA, UNSPECIFIED Status: Acute Comment: Persistent , continue IVF's, monitor clinically (8) Macrocytic anemia Code(s): D53.9 - NUTRITIONAL ANEMIA, UNSPECIFIED Status: Chronic Comment: ? 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
[2017-05-07] MEDS ORDERED: Lorazepam 1 MG TAB PO SCH (10:00)
[2017-05-07] MEDS: Benzonatate 100 MG CAP PO SCH ×3 (10:02→21:56)
[2017-05-07] MEDS: guaiFENesin ER 600 MG TAB PO SCH ×2 (10:03→21:56)
[2017-05-07] MEDS: Famotidine 20 MG TAB PO SCH ×2 (10:03→21:56)
[2017-05-07] MEDS: Linezolid 600 MG in Premix Bag 1 BAG IVPB SCH ×2 (10:03→21:57)
--- NOTE | 2017-05-07 21:48 | PDOC.EVN ---
Event Note - Event Note Event Note: RN called - Pt tachycardic with HR in 140s. Was 148 earlier today. She is not hypoxic. PE ruled out this admission. Will check electrolytes. Will cont to monitor
[2017-05-07] MEDS: Acetaminophen/Codeine 30-300mg Tablet PO PRN (21:56)
[2017-05-08] MEDS: Vancomycin HCl 1.25 GM in Sodium Chloride 0.9% 250 ML 250 ML IVPB SCH ×4 (00:13→23:16)
[2017-05-08] MEDS: Ipratropium Bromide 2.5 ml Neb NEB SCH ×6 (02:13→22:37)
[2017-05-08 06:02] LABS: #Basophils 0.1 thou/uL (0.0-0.2); #Eosinphils 0.4 thou/uL (0.0-0.7); #Lymphocytes 1.8 thou/uL (1.20-3.40); #Monocytes 0.8 thou/uL (0.11-0.59); #Neutrophils 8.4 thou/uL (1.40-6.50); %Basophils 0.5 % (0.0-1.0); %Eosinophils 3.1 % (0.0-10.0); %Lymphocytes 15.8 % (28.0-48.0); %Monocytes 6.8 % (0.0-4.0); %Neutrophils 73.8 % (31.0-61.0); Hemoglobin 9.1 g/dL (12.0-16.0); Mean Corpuscular HGB CONC 31.7 g/dL (32.0-36.0); Mean Corpuscular Hemoglobin 29.3 pg (25.0-35.0); Mean Corpuscular Volume 92.5 fl (77.0-87.0); Mean Platelet Volume 5.1 fL (7.4-10.4); Platelet Count 327 thou/uL (130-400); RBC Distribution Width 16.6 % (11.5-14.5); Red Blood Cell (RBC) Count 3.11 mill/uL (4.00-5.20); White Blood Cell (WBC) Count 11.3 thou/uL (4.8-10.8)
[2017-05-08 06:15] LABS: ALT (SGPT) 17 U/L (8-55); AST (SGOT) 11 U/L (5-34); Albumin 3.7 g/dL (3.5-5.0); Alkaline Phosphatase 76 U/L (40-150); Anion Gap 11 mmol/L (10-20); BUN (Urea Nitrogen) 18 mg/dL (7.0-18.7); Bilirubin, Total 0.4 mg/dL (0.2-1.2); Calc. Creatinine Clearance 120 mL/min (70-130); Calcium 9.6 mg/dL (7.8-10.44); Carbon Dioxide 29 mmol/L (22-29); Chloride 100 mmol/L (98-107); Estimated GFR-MDRD Greater than 90; Globulin 3.1 g/dL (2.4-3.5); Glucose 95 mg/dL (70-105); Magnesium 2.1 mg/dL (1.7-2.2); Phosphorus 4.8 mg/dL (2.3-4.7); Potassium 4.5 mmol/L (3.5-5.1); Protein, Total 6.8 g/dL (6.0-8.3); Sodium 135 mmol/L (136-145)
[2017-05-08] MEDS: guaiFENesin ER 600 MG TAB PO SCH ×2 (10:21→20:52)
[2017-05-08] MEDS: Benzonatate 100 MG CAP PO SCH ×3 (10:21→20:51)
[2017-05-08] MEDS: Linezolid 600 MG in Premix Bag 1 BAG IVPB SCH ×2 (10:22→20:51)
[2017-05-08] MEDS: Famotidine 20 MG TAB PO SCH ×2 (10:22→20:52)
--- NOTE | 2017-05-08 10:37 | RAD ---
2 VIEWS CHEST: Date: 05/08/17 PROVIDED CLINICAL HISTORY: Pneumonia. FINDINGS: Comparison is made with the study dated 04/30/17. Cardiac and mediastinal silhouette is unchanged in appearance. Bilateral consolidation is again seen with associated air fluid levels. Blunting of the left costophrenic angle suggests associated left pl eural fluid. Right upper extremity PICC line is again seen in similar position. No evidence for pneum othorax. IMPRESSION: Persistent but less conspicuous bilateral lung consolidation with associated air fluid levels. POS: KAVITHAH
[2017-05-08] MEDS: Acetaminophen/Codeine 30-300mg Tablet PO PRN (12:35)
--- NOTE | 2017-05-08 14:02 | PDOC.PN ---
- Subjective Encounter Start Date: 05/08/17 Encounter Start Time: 14:16 Subjective: No new complaints. Reports some shortness of breath on ambulation -: Feels better today -: Tachycardic to the 140s overnight but in the 90s this am. - Objective MAR Reviewed: Yes Vital Signs & Weight: Vital Signs (12 hours) Temp Pulse Resp BP BP Pulse Ox 05/08/17 11:30 98.6 F 113 H 18 108/60 95 05/08/17 10:33 96 20 05/08/17 07:20 98.5 F 124 H 20 104/58 L 97 05/08/17 07:15 128 H 20 96 05/08/17 04:05 99.1 F 133 H 20 107/57 L 97 05/08/17 02:13 116 H 20 97 Weight Admit Weight 108 lb 14.4 oz Weight 111 lb 12.8 oz Most Recent Monitor Data Heart Rate from ECG 80 NIBP 112/76 NIBP BP-Mean 84 Respiration from ECG 25 SpO2 100 I&O: 05/07/17 05/08/17 05/09/17 06:59 06:59 06:59 Intake Total 1050 1050 Output Total 1000 1500 Balance 50 -450 Result Diagrams: 05/08/17 05:45 05/08/17 05:45 Phys Exam - Physical Examination Constitutional: NAD HEENT: PERRLA, moist MMs, sclera anicteric Neck: no JVD, supple, full ROM Respiratory: no wheezing, no rales, no rhonchi, clear to auscultation bilateral Cardiovascular: no significant murmur, no rub Tachycardic. Regular rhythm. Neurological: moves all 4 limbs Psychiatric: normal affect, A&O x 3 Skin: no rash, normal turgor Dx/Plan (1) MRSA pneumonia Code(s): J15.212 - PNEUMONIA DUE TO METHICILLIN RESISTANT STAPHYLOCOCCUS AUREUS Status: Acute Qualifiers: Laterality: bilateral Comment: Cavitary areas noted with MRSA bacteremia. Continue Linezolid and Vancomycin. (2) Sepsis Code(s): A41.9 - SEPSIS, UNSPECIFIED ORGANISM Status: Acute Qualifiers: Sepsis type: methicillin resistant Staphylococcus aureus Qualified Code(s) : A41.02 - Sepsis due to Methicillin resistant Staphylococcus aureus Comment: Continue antibiotics. Will need to continue until at least 06/06/17. Follow ID recs. (3) Parapneumonic effusion Code(s): J18.9 - PNEUMONIA, UNSPECIFIED ORGANISM; J91.8 - PLEURAL EFFUSION IN OTHER CONDITIONS CLASSIFIED ELSEWHERE Status: Acute Plan: As above. (4) Renal infarct Code(s): N28.0 - ISCHEMIA AND INFARCTION OF KIDNEY Status: Acute Plan: As above. (5) Septic embolism Code(s): I26.90 - SEPTIC PULMONARY EMBOLISM WITHOUT ACUTE COR PULMONALE Status : Suspected Comment: See above (6) Sinus tachycardia Code(s): R00.0 - TACHYCARDIA, UNSPECIFIED Status: Acute Comment: Improving. Had a CT chest on admission which ruled out PE. If persisting, will get a repeat CT angio. (7) Macrocytic anemia Code(s): D53.9 - NUTRITIONAL ANEMIA, UNSPECIFIED Status: Chronic Comment: 2/ 2 anemia of chronic inflammation. (8) Blurry vision, left eye Code(s): H53.8 - OTHER VISUAL DISTURBANCES Status: Acute Comment: Possible endophthalmitis. Declined ophthalmology evaluation. Will continue care home antibiotics and encourage patient to see specialist. 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 Review of Systems - Medications/Allergies Allergies/Adverse Reactions: Allergies Allergy/AdvReac Type Severity Reaction Status Date / Time No Known Drug Allergies Allergy Verified 04/23/17 23:42 Medications: Current Medications Acetaminophen (Tylenol) 650 mg PO Q4H PRN PRN Reason: Headache/Fever or Pain Last Admin: 04/28/17 18:09 Dose: 650 mg Acetaminophen/Codeine Phosphate (Tylenol #3) 1 tab PO Q4H PRN PRN Reason: Moderate Pain (4-6) Last Admin: 05/08/17 12:35 Dose: 1 tab Benzonatate (Tessalon) 100 mg PO TID [facility] Last Admin: 05/08/17 10:21 Dose: 100 mg Famotidine (Pepcid) 20 mg PO BID [facility] Last Admin: 05/08/17 10:22 Dose: 20 mg Guaifenesin (Mucinex) 600 mg PO Q12HR [facility] Last Admin: 05/08/17 10:21 Dose: 600 mg Linezolid 600 mg/ Device 300 mls @ 150 mls/hr IVPB Q12HR [facility] Stop: 06/06/17 10:59 Last Admin: 05/08/17 10:22 Dose: 300 mls Vancomycin HCl 1.25 gm/ Sodium (Chloride) 250 mls @ 166.667 mls/hr IVPB 0700, 1500,2300 JOVANNI Last Admin: 05/08/17 06:21 Dose: 250 mls Ipratropium [place] (Atrovent) 2.5 ml NEB [id number] [facility] Last Admin: 05/08/17 10:33 Dose: 2.5 ml Magnesium Hydroxide (Milk Of Magnesium) 30 ml PO DAILYPRN PRN PRN Reason: Constipation Last Admin: 04/27/17 03:44 Dose: 30 ml Miscellaneous Medication (Pharmacy To Dose) 1 each IVPB PRN PRN PRN Reason: GOAL TROUGH = 15-20 Sodium Chloride (Flush - Normal Saline) 10 ml IVF Q12HR [facility] Last Admin: 05/08/17 10:23 Dose: 10 ml Sodium Chloride (Flush - Normal Saline) 10 ml IVF PRN PRN PRN Reason: Saline Flush Zolpidem Tartrate (Ambien) 5 mg PO HS PRN PRN Reason: Insomnia
[2017-05-08 14:39] LABS: Vancomycin, Trough 17.8 ug/mL
[2017-05-08] MEDS: Ferrous Sulfate 325 MG TAB PO SCH (17:40)
[2017-05-09] MEDS: Acetaminophen/Codeine 30-300mg Tablet PO PRN (00:19)
[2017-05-09] MEDS: Ipratropium Bromide 2.5 ml Neb NEB SCH ×6 (02:14→21:59)
[2017-05-09] MEDS: Vancomycin HCl 1.25 GM in Sodium Chloride 0.9% 250 ML 250 ML IVPB SCH ×3 (06:00→23:06)
[2017-05-09 06:22] LABS: #Eosinphils 0.2 thou/uL (0.0-0.7); #Lymphocytes 1.7 thou/uL (1.20-3.40); #Monocytes 0.7 thou/uL (0.11-0.59); %Basophils 0.5 % (0.0-1.0); %Eosinophils 1.9 % (0.0-10.0); %Lymphocytes 17.9 % (28.0-48.0); %Monocytes 6.8 % (0.0-4.0); Hemoglobin 9.1 g/dL (12.0-16.0); Mean Corpuscular Hemoglobin 30.7 pg (25.0-35.0); Mean Corpuscular Volume 93.2 fl (77.0-87.0); Mean Platelet Volume 5.6 fL (7.4-10.4); Platelet Count 293 thou/uL (130-400); RBC Distribution Width 17.1 % (11.5-14.5); Red Blood Cell (RBC) Count 2.96 mill/uL (4.00-5.20); White Blood Cell (WBC) Count 9.6 thou/uL (4.8-10.8)
[2017-05-09 06:41] LABS: ALT (SGPT) 20 U/L (8-55); AST (SGOT) 11 U/L (5-34); Albumin 3.9 g/dL (3.5-5.0); Alkaline Phosphatase 83 U/L (40-150); Anion Gap 11 mmol/L (10-20); BUN (Urea Nitrogen) 14 mg/dL (7.0-18.7); Bilirubin, Total 0.4 mg/dL (0.2-1.2); Calc. Creatinine Clearance 111 mL/min (70-130); Calcium 9.6 mg/dL (7.8-10.44); Carbon Dioxide 27 mmol/L (22-29); Chloride 103 mmol/L (98-107); Estimated GFR-MDRD Greater than 90; Globulin 3.3 g/dL (2.4-3.5); Glucose 90 mg/dL (70-105); Protein, Total 7.2 g/dL (6.0-8.3); Sodium 137 mmol/L (136-145)
[2017-05-09] MEDS: Ferrous Sulfate 325 MG TAB PO SCH ×2 (08:57→17:14)
[2017-05-09] MEDS: Famotidine 20 MG TAB PO SCH ×2 (08:58→20:51)
[2017-05-09] MEDS: Linezolid 600 MG in Premix Bag 1 BAG IVPB SCH ×2 (08:58→20:51)
[2017-05-09] MEDS: Benzonatate 100 MG CAP PO SCH ×3 (08:58→20:51)
[2017-05-09] MEDS: guaiFENesin ER 600 MG TAB PO SCH ×2 (08:58→20:51)
[2017-05-09] MEDS ORDERED: Sodium Chloride 0.9% 500 ML IV SCH (09:45)
--- NOTE | 2017-05-09 13:32 | PDOC.PN ---
- Subjective Encounter Start Date: 05/09/17 Encounter Start Time: 13:42 Subjective: No new complaints. -: No acute events overnight. - Objective MAR Reviewed: Yes Vital Signs & Weight: Vital Signs (12 hours) Temp Pulse Resp BP BP Pulse Ox 05/09/17 11:25 88 20 05/09/17 11:23 97.3 F L 115 H 18 107/61 96 05/09/17 07:09 104 H 28 H 96 05/09/17 07:00 98.3 F 104 H 18 101/55 L 96 05/09/17 04:37 98.9 F 117 H 16 115/57 L 96 Weight Admit Weight 108 lb 14.4 oz Weight 111 lb 12.8 oz Most Recent Monitor Data Heart Rate from ECG 80 NIBP 112/76 NIBP BP-Mean 84 Respiration from ECG 25 SpO2 100 I&O: 05/08/17 05/09/17 05/10/17 06:59 06:59 06:59 Intake Total 1050 1300 Output Total 1500 3000 Balance -450 -1700 Result Diagrams: 05/09/17 05:08 05/09/17 05:09 Phys Exam - Physical Examination Constitutional: NAD HEENT: PERRLA, moist MMs, sclera anicteric Neck: no JVD, supple, full ROM Respiratory: no wheezing, no rales, no rhonchi, clear to auscultation bilateral Cardiovascular: RRR, no significant murmur, no rub Gastrointestinal: soft, non-tender, no distention, positive bowel sounds Musculoskeletal: no edema, pulses present Neurological: non-focal, moves all 4 limbs Psychiatric: normal affect, A&O x 3 Skin: no rash, normal turgor Dx/Plan (1) MRSA pneumonia Code(s): J15.212 - PNEUMONIA DUE TO METHICILLIN RESISTANT STAPHYLOCOCCUS AUREUS Status: Acute Qualifiers: Laterality: bilateral Comment: Stable. Cavitary areas noted with MRSA bacteremia. Continue Linezolid and Vancomycin. (2) Sepsis Code(s): A41.9 - SEPSIS, UNSPECIFIED ORGANISM Status: Acute Qualifiers: Sepsis type: methicillin resistant Staphylococcus aureus Qualified Code(s) : A41.02 - Sepsis due to Methicillin resistant Staphylococcus aureus Comment: Continue antibiotics. Will need to continue until at least 06/06/17. Follow ID recs. (3) Parapneumonic effusion Code(s): J18.9 - PNEUMONIA, UNSPECIFIED ORGANISM; J91.8 - PLEURAL EFFUSION IN OTHER CONDITIONS CLASSIFIED ELSEWHERE Status: Acute Comment: As above. (4) Renal infarct Code(s): N28.0 - ISCHEMIA AND INFARCTION OF KIDNEY Status: Acute Plan: As above. (5) Septic embolism Code(s): I26.90 - SEPTIC PULMONARY EMBOLISM WITHOUT ACUTE COR PULMONALE Status : Suspected Comment: See above (6) Sinus tachycardia Code(s): R00.0 - TACHYCARDIA, UNSPECIFIED Status: Acute Comment: Improved w a bolus of normal saline. Had a CT chest on admission which ruled out PE. (7) Macrocytic anemia Code(s): D53.9 - NUTRITIONAL ANEMIA, UNSPECIFIED Status: Chronic Comment: 2/ 2 anemia of chronic inflammation. (8) Blurry vision, left eye Code(s): H53.8 - OTHER VISUAL DISTURBANCES Status: Acute Comment: Reports improved vision. Concerns for possible endophthalmitis.Open to an ophthalmology evaluation. Will call Dr Camacho on 04/16. 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 (9) Sepsis due to methicillin resistant Staphylococcus aureus Code(s): A41.02 - SEPSIS DUE TO METHICILLIN RESISTANT STAPHYLOCOCCUS AUREUS Status: Resolved - Plan cont current plan of care, continue antibiotics, out of bed/ambulate * . Review of Systems - Medications/Allergies Allergies/Adverse Reactions: Allergies Allergy/AdvReac Type Severity Reaction Status Date / Time No Known Drug Allergies Allergy Verified 04/23/17 23:42 Medications: Current Medications Acetaminophen (Tylenol) 650 mg PO Q4H PRN PRN Reason: Headache/Fever or Pain Last Admin: 04/28/17 18:09 Dose: 650 mg Acetaminophen/Codeine Phosphate (Tylenol #3) 1 tab PO Q4H PRN PRN Reason: Moderate Pain (4-6) Last Admin: 05/09/17 00:19 Dose: 1 tab Benzonatate (Tessalon) 100 mg PO TID [facility] Last Admin: 05/09/17 08:58 Dose: 100 mg Famotidine (Pepcid) 20 mg PO BID [facility] Last Admin: 05/09/17 08:58 Dose: 20 mg Ferrous Sulfate (Feosol) 325 mg PO BID-[facility] Last Admin: 05/09/17 08:57 Dose: 325 mg Guaifenesin (Mucinex) 600 mg PO Q12HR [facility] Last Admin: 05/09/17 08:58 Dose: 600 mg Linezolid 600 mg/ Device 300 mls @ 150 mls/hr IVPB Q12HR [facility] Stop: 06/06/17 10:59 Last Admin: 05/09/17 08:58 Dose: 300 mls Vancomycin HCl 1.25 gm/ Sodium (Chloride) 250 mls @ 166.667 mls/hr IVPB 0700, 1500,2300 [facility] Last Admin: 05/09/17 06:00 Dose: 250 mls Ipratropium [place] (Atrovent) 2.5 ml NEB [id number] [facility] Last Admin: 05/09/17 11:25 Dose: 2.5 ml Magnesium Hydroxide (Milk Of Magnesium) 30 ml PO DAILYPRN PRN PRN Reason: Constipation Last Admin: 04/27/17 03:44 Dose: 30 ml Miscellaneous Medication (Pharmacy To Dose) 1 each IVPB PRN PRN PRN Reason: GOAL TROUGH = 15-20 Sodium Chloride (Flush - Normal Saline) 10 ml IVF Q12HR [facility] Last Admin: 05/09/17 08:58 Dose: 10 ml Sodium Chloride (Flush - Normal Saline) 10 ml IVF PRN PRN PRN Reason: Saline Flush Tramadol HCl (Ultram) 50 mg PO Q6H PRN PRN Reason: Moderate Pain (4-6) Zolpidem Tartrate (Ambien) 5 mg PO HS PRN PRN Reason: Insomnia
[2017-05-09] MEDS: traMADol HCl 50 MG TAB PO PRN (14:25)
[2017-05-09] MEDS: Ondansetron HCl/PF 4 MG/2 ML Vial IVP PRN (17:04)
--- NOTE | 2017-05-09 17:20 | RAD ---
PORTABLE AP CHEST: Date: 05/09/17 HISTORY: Shortness of breath. COMPARISON: 05/08/17. FINDINGS: Right-sided PICC line remains in place. Patchy parenchymal opacities are again seen at each lung base and right hilar region, not significantly changed from the prior study. There is suggestion of a sma ll left pleural effusion. There is suggestion of cavitation in the region of the parenchymal opacity at the right lung base, possibly involving the area of patchy opacity at the region of the lingula. T he cardiac silhouette is magnified by projection. Pulmonary vasculature is within normal limits. Ther e has been no significant interval change from prior exam. IMPRESSION: 1. Parenchymal opacities at each lung base with areas of cavitation again seen which may be related to an atypical infectious process. 2. Small left pleural effusion. POS: [facility]
[2017-05-10] MEDS: Acetaminophen/Codeine 30-300mg Tablet PO PRN ×2 (02:07→17:38)
[2017-05-10] MEDS: Ipratropium Bromide 2.5 ml Neb NEB SCH ×2 (02:55→07:35)
[2017-05-10 05:15] LABS: #Basophils 0.1 thou/uL (0.0-0.2); #Eosinphils 0.2 thou/uL (0.0-0.7); #Lymphocytes 1.5 thou/uL (1.20-3.40); #Monocytes 0.6 thou/uL (0.11-0.59); #Neutrophils 4.7 thou/uL (1.40-6.50); %Basophils 0.7 % (0.0-1.0); %Eosinophils 3.4 % (0.0-10.0); %Lymphocytes 21.3 % (28.0-48.0); %Neutrophils 66.5 % (31.0-61.0); Hemoglobin 8.3 g/dL (12.0-16.0); Mean Corpuscular HGB CONC 33.2 g/dL (32.0-36.0); Mean Corpuscular Hemoglobin 31.1 pg (25.0-35.0); Mean Corpuscular Volume 93.6 fl (77.0-87.0); Mean Platelet Volume 5.3 fL (7.4-10.4); Platelet Count 249 thou/uL (130-400); RBC Distribution Width 17.1 % (11.5-14.5); Red Blood Cell (RBC) Count 2.66 mill/uL (4.00-5.20); White Blood Cell (WBC) Count 7.1 thou/uL (4.8-10.8)
[2017-05-10 05:27] LABS: ALT (SGPT) 16 U/L (8-55); AST (SGOT) 11 U/L (5-34); Albumin 3.5 g/dL (3.5-5.0); Alkaline Phosphatase 73 U/L (40-150); Anion Gap 10 mmol/L (10-20); BUN (Urea Nitrogen) 13 mg/dL (7.0-18.7); Bilirubin, Total 0.3 mg/dL (0.2-1.2); Calc. Creatinine Clearance 120 mL/min (70-130); Calcium 9.2 mg/dL (7.8-10.44); Carbon Dioxide 26 mmol/L (22-29); Chloride 104 mmol/L (98-107); Estimated GFR-MDRD Greater than 90; Globulin 2.8 g/dL (2.4-3.5); Glucose 94 mg/dL (70-105); Potassium 4.2 mmol/L (3.5-5.1); Protein, Total 6.3 g/dL (6.0-8.3); Sodium 136 mmol/L (136-145)
[2017-05-10] MEDS: Vancomycin HCl 1.25 GM in Sodium Chloride 0.9% 250 ML 250 ML IVPB SCH ×3 (06:07→23:10)
[2017-05-10] MEDS ORDERED: Ipratropium Bromide 2.5 ml Neb NEB PRN (07:53)
[2017-05-10] MEDS: Benzonatate 100 MG CAP PO SCH ×3 (08:59→20:55)
[2017-05-10] MEDS: Famotidine 20 MG TAB PO SCH ×2 (08:59→20:55)
[2017-05-10] MEDS: guaiFENesin ER 600 MG TAB PO SCH ×2 (09:00→20:55)
[2017-05-10] MEDS: Ferrous Sulfate 325 MG TAB PO SCH ×2 (09:00→17:38)
[2017-05-10] MEDS: Enoxaparin Sodium 40 MG/0.4 ML SYRINGE SC SCH (09:00)
[2017-05-10] MEDS: Linezolid 600 MG in Premix Bag 1 BAG IVPB SCH ×2 (09:02→20:55)
--- NOTE | 2017-05-10 11:59 | PDOC.PN ---
- Subjective Encounter Start Date: 05/10/17 Encounter Start Time: 12:07 Subjective: No new complaints. -: No acute events overnight. - Objective Vital Signs & Weight: Vital Signs (12 hours) Temp Pulse Resp BP BP Pulse Ox 05/10/17 08:00 96.5 F L 116 H 18 97/49 L 99 05/10/17 07:35 94 16 100 05/10/17 06:04 98.3 F 95 18 106/60 94 L 05/10/17 02:55 110 H 20 98 Weight Admit Weight 108 lb 14.4 oz Weight 111 lb 12.8 oz Most Recent Monitor Data Heart Rate from ECG 80 NIBP 112/76 NIBP BP-Mean 84 Respiration from ECG 25 SpO2 100 I&O: 05/09/17 05/10/17 05/11/17 06:59 06:59 06:59 Intake Total 1300 1280 Output Total 3000 1300 Balance -1700 -20 Result Diagrams: 05/10/17 04:35 05/10/17 04:35 Phys Exam - Physical Examination Constitutional: NAD HEENT: PERRLA, moist MMs, sclera anicteric Neck: no JVD, supple, full ROM Respiratory: no wheezing, no rales, no rhonchi vesicular but reduced breath sounds bilaterally. Cardiovascular: RRR, no significant murmur, no rub Gastrointestinal: soft, non-tender, no distention, positive bowel sounds Musculoskeletal: no edema, pulses present Neurological: non-focal, moves all 4 limbs Psychiatric: normal affect, A&O x 3 Skin: no rash, normal turgor Dx/Plan (1) MRSA pneumonia Code(s): J15.212 - PNEUMONIA DUE TO METHICILLIN RESISTANT STAPHYLOCOCCUS AUREUS Status: Acute Qualifiers: Laterality: bilateral Comment: Stable. Cavitary areas noted with MRSA bacteremia. Continue Linezolid and Vancomycin. Will need to continue abx until at least 06/06/17. Follow ID recs. (2) Parapneumonic effusion Code(s): J18.9 - PNEUMONIA, UNSPECIFIED ORGANISM; J91.8 - PLEURAL EFFUSION IN OTHER CONDITIONS CLASSIFIED ELSEWHERE Status: Acute Comment: As above. (3) Sinus tachycardia Code(s): R00.0 - TACHYCARDIA, UNSPECIFIED Status: Acute Comment: Improved transiently w a bolus of normal saline but has persistent tachycardia. CTPE done earlier was limited but did not reveal PE. Will repeat. If normal then will consider a TTE. (4) Septic embolism Code(s): I26.90 - SEPTIC PULMONARY EMBOLISM WITHOUT ACUTE COR PULMONALE Status : Suspected Comment: with renal infarcts. (5) Macrocytic anemia Code(s): D53.9 - NUTRITIONAL ANEMIA, UNSPECIFIED Status: Chronic Comment: 2/ 2 anemia of chronic inflammation. (6) Blurry vision, left eye Code(s): H53.8 - OTHER VISUAL DISTURBANCES Status: Acute Comment: Reports improved vision. Concerns for possible endophthalmitis.Open to an ophthalmology evaluation. Will call Dr Camacho on 04/16. For now, continue correction antibiotics. (7) Sepsis due to methicillin resistant Staphylococcus aureus Code(s): A41.02 - SEPSIS DUE TO METHICILLIN RESISTANT STAPHYLOCOCCUS AUREUS Status: Resolved - Plan cont current plan of care, continue antibiotics, respiratory therapy, incentive spirometry, out of bed/ambulate, DVT proph w/lovenox f/u CTPE, ophthalmology recs, Zyvox and Vancomycin. * . Review of Systems - Medications/Allergies Allergies/Adverse Reactions: Allergies Allergy/AdvReac Type Severity Reaction Status Date / Time No Known Drug Allergies Allergy Verified 04/23/17 23:42 Medications: Current Medications Acetaminophen (Tylenol) 650 mg PO Q4H PRN PRN Reason: Headache/Fever or Pain Last Admin: 04/28/17 18:09 Dose: 650 mg Acetaminophen/Codeine Phosphate (Tylenol #3) 1 tab PO Q4H PRN PRN Reason: Moderate Pain (4-6) Last Admin: 05/10/17 02:07 Dose: 1 tab Benzonatate (Tessalon) 100 mg PO TID [facility] Last Admin: 05/10/17 08:59 Dose: 100 mg Enoxaparin Sodium (Lovenox) 40 mg SC 0900 [facility] Last Admin: 05/10/17 09:00 Dose: 40 mg Famotidine (Pepcid) 20 mg PO BID [facility] Last Admin: 05/10/17 08:59 Dose: 20 mg Ferrous Sulfate (Feosol) 325 mg PO BID-[facility] Last Admin: 05/10/17 09:00 Dose: 325 mg Guaifenesin (Mucinex) 600 mg PO Q12HR [facility] Last Admin: 05/10/17 09:00 Dose: 600 mg Linezolid 600 mg/ Device 300 mls @ 150 mls/hr IVPB Q12HR [facility] Stop: 06/06/17 10:59 Last Admin: 05/10/17 09:02 Dose: 300 mls Vancomycin HCl 1.25 gm/ Sodium (Chloride) 250 mls @ 166.667 mls/hr IVPB 0700, 1500,2300 [facility] Last Admin: 05/10/17 06:07 Dose: 250 mls Ipratropium [place] (Atrovent) 2.5 ml NEB Q4H PRN PRN Reason: SOB Magnesium Hydroxide (Milk Of Magnesium) 30 ml PO DAILYPRN PRN PRN Reason: Constipation Last Admin: 04/27/17 03:44 Dose: 30 ml Miscellaneous Medication (Pharmacy To Dose) 1 each IVPB PRN PRN PRN Reason: GOAL TROUGH = 15-20 Ondansetron HCl (Zofran) 4 mg IVP Q6H PRN PRN Reason: Nausea/Vomiting Last Admin: 05/09/17 17:04 Dose: 4 mg Sodium Chloride (Flush - Normal Saline) 10 ml IVF Q12HR [facility] Last Admin: 05/10/17 09:02 Dose: 10 ml Sodium Chloride (Flush - Normal Saline) 10 ml IVF PRN PRN PRN Reason: Saline Flush Tramadol HCl (Ultram) 50 mg PO Q6H PRN PRN Reason: Moderate Pain (4-6) Last Admin: 05/09/17 14:25 Dose: 50 mg Zolpidem Tartrate (Ambien) 5 mg PO HS PRN PRN Reason: Insomnia
[2017-05-10] MEDS ORDERED: Iopamidol 370 76% 100 ML VIAL ONE (13:13)
--- NOTE | 2017-05-10 16:21 | CT ---
CT ANGIOGRAM THORAX WITH IV CONTRAST AND 3D RECONSTRUCTIONS: Date: 05-10-17 History: Pneumonia with associated chest pain, shortness of breath, and cough. Persistent tachycardia . Comparison: 04-23-17 FINDINGS: The cavitary lesions seen bilaterally are again seen but have improved with decrease in size of cavit lindsay lesions present. The largest cavitary lesion in the right upper lobe on prior study measured 5.5 cm x 4.4 cm and this now measures 5.2 cm x 3.0 cm. The large cavitary lesion in the right lower lobe has increased associated consolidation but is also smaller in size measuring 6.2 cm x 4.5 cm and prev iously measured 7.3 cm x 6.7 cm. Cavitary lesion in the left lower lobe previously measured 4.7 cm x 4.0 cm and now measures 3.0 cm x 3.8 cm. The smaller cavitary lesions within the lung bilaterally are also significantly decreased in size. Findings again are likely related atypical infectious process which is improved from prior exam. There are moderate left and small right pleural effusions. These have not significantly changed from the prior exam. There is bilateral hilar lymphadenopathy seen on the prior study, likely reactive in origin. Mildly p rominent lymph node in the anterior superior mediastinum is again seen measuring 7 mm in short axis d imension. Largest right hilar lymph node measures 1.6 cm x 1.2 cm. There are no filling defects seen in the pulmonary arteries to suggest pulmonary embolus. Thoracic aorta is normal in caliber without evidence of an aortic dissection. A right sided PICC line is noted in place with tip terminating below the level of the cavoatrial junc tion. Cardiac silhouette is at the upper limits of normal in size with small pericardial effusion visualize d. Visualized upper abdomen demonstrates normal CT appearance for arterial phase of imaging. There has been no other interval change. IMPRESSION: 1. Multiple scattered cavitary lesions throughout the lungs bilaterally, all of which appear to have decreased in size compared to the prior study. Findings are suggestive of improving infectious proces s/atypical infectious process. 2. Small to moderate left and very small right pleural effusions similar to prior exam. 3. Mediastinal and hilar lymphadenopathy likely reactive in origin. 4. No CT evidence of a pulmonary embolus. 5. Small pericardial effusion. POS: [facility]
[2017-05-11 05:45] LABS: #Basophils 0.1 thou/uL (0.0-0.2); #Eosinphils 0.2 thou/uL (0.0-0.7); #Lymphocytes 1.4 thou/uL (1.20-3.40); #Monocytes 0.4 thou/uL (0.11-0.59); #Neutrophils 4.7 thou/uL (1.40-6.50); %Basophils 0.8 % (0.0-1.0); %Eosinophils 2.7 % (0.0-10.0); %Lymphocytes 20.3 % (28.0-48.0); %Monocytes 6.4 % (0.0-4.0); %Neutrophils 69.9 % (31.0-61.0); Hemoglobin 8.3 g/dL (12.0-16.0); Mean Corpuscular HGB CONC 32.7 g/dL (32.0-36.0); Mean Corpuscular Hemoglobin 30.3 pg (25.0-35.0); Mean Corpuscular Volume 92.8 fl (77.0-87.0); Mean Platelet Volume 5.2 fL (7.4-10.4); Platelet Count 265 thou/uL (130-400); Red Blood Cell (RBC) Count 2.75 mill/uL (4.00-5.20); White Blood Cell (WBC) Count 6.8 thou/uL (4.8-10.8)
[2017-05-11 05:56] LABS: ALT (SGPT) 16 U/L (8-55); AST (SGOT) 10 U/L (5-34); Albumin 3.6 g/dL (3.5-5.0); Alkaline Phosphatase 80 U/L (40-150); Anion Gap 12 mmol/L (10-20); BUN (Urea Nitrogen) 10 mg/dL (7.0-18.7); Bilirubin, Total 0.4 mg/dL (0.2-1.2); Calc. Creatinine Clearance 116 mL/min (70-130); Calcium 9.4 mg/dL (7.8-10.44); Carbon Dioxide 25 mmol/L (22-29); Chloride 105 mmol/L (98-107); Estimated GFR-MDRD Greater than 90; Glucose 97 mg/dL (70-105); Protein, Total 6.6 g/dL (6.0-8.3); Sodium 138 mmol/L (136-145)
[2017-05-11] MEDS: Vancomycin HCl 1.25 GM in Sodium Chloride 0.9% 250 ML 250 ML IVPB SCH ×3 (06:27→23:21)
[2017-05-11] MEDS: Famotidine 20 MG TAB PO SCH ×2 (09:32→09:33)
[2017-05-11] MEDS: Ferrous Sulfate 325 MG TAB PO SCH ×2 (09:32→17:28)
[2017-05-11] MEDS: Enoxaparin Sodium 40 MG/0.4 ML SYRINGE SC SCH (09:33)
[2017-05-11] MEDS: guaiFENesin ER 600 MG TAB PO SCH ×2 (09:33→21:06)
[2017-05-11] MEDS: Benzonatate 100 MG CAP PO SCH ×3 (10:41→21:06)
[2017-05-11] MEDS: Linezolid 600 MG in Premix Bag 1 BAG IVPB SCH ×2 (10:41→21:07)
--- NOTE | 2017-05-11 11:39 | PRG ---
DATE OF SERVICE: 05/10/2017 HISTORY: The patient relates that her vision is getting better, still coughing intermittently, but n o hemoptysis. No chest pain, no abdominal pain or diarrhea. No genitourinary symptoms. PHYSICAL EXAMINATION: VITAL SIGNS: T-max 98.6, blood pressure 108/58, pulse 109, respirations 16, O2 sat 99%. HEENT: Ocular movements conjugate. NECK: Supple. LUNGS: Symmetric clear breath sounds. CARDIOVASCULAR: S1, S2, regular rate. No S3 or S4. ABDOMEN: Soft and not distended. LABORATORY DATA: White cell count 6.8, hemoglobin 8.3, platelets 249. Chemistry was normal. 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 The patient will have to continue regimen until 06/06/2017 approximately.
--- NOTE | 2017-05-11 12:02 | PDOC.PN ---
- Subjective Encounter Start Date: 05/11/17 Encounter Start Time: 08:00 Pt seen for followup re: pneumonia. Reports feeling better. Cough+, minimal sputum. No fevers or chills. - Objective MAR Reviewed: Yes Vital Signs & Weight: Vital Signs (12 hours) Temp Pulse Resp BP Pulse Ox 05/11/17 08:15 98.3 F 105 H 18 90/60 98 05/11/17 04:53 98.5 F 109 H 16 108/58 L 99 05/11/17 01:03 123 H 18 99 Weight Admit Weight 108 lb 14.4 oz Weight 111 lb 12.8 oz Most Recent Monitor Data Heart Rate from ECG 80 NIBP 112/76 NIBP BP-Mean 84 Respiration from ECG 25 SpO2 100 I&O: 05/10/17 05/11/17 05/12/17 06:59 06:59 06:59 Intake Total 1280 490 Output Total 1300 Balance -20 490 Result Diagrams: 05/11/17 05:22 05/11/17 05:22 Phys Exam - Physical Examination Constitutional: NAD HEENT: moist MMs Neck: supple Bibasal crackles Cardiovascular: RRR Gastrointestinal: soft Neurological: moves all 4 limbs Psychiatric: normal affect Dx/Plan (1) MRSA pneumonia Code(s): J15.212 - PNEUMONIA DUE TO METHICILLIN RESISTANT STAPHYLOCOCCUS AUREUS Status: Acute Qualifiers: Laterality: bilateral Comment: Continue Linezolid and Vancomycin until at least 06/06/17. (2) Renal infarct Code(s): N28.0 - ISCHEMIA AND INFARCTION OF KIDNEY Status: Acute (3) Sinus tachycardia Code(s): R00.0 - TACHYCARDIA, UNSPECIFIED Status: Acute Comment: No PE on CTA yesterday (4) Septic embolism Code(s): I26.90 - SEPTIC PULMONARY EMBOLISM WITHOUT ACUTE COR PULMONALE Status : Suspected Comment: with renal infarcts. (5) Blurry vision, left eye Code(s): H53.8 - OTHER VISUAL DISTURBANCES Status: Resolved Comment: Visual acuity normal on bedside exam - Plan * . Review of Systems - Review of Systems Constitutional: negative: fever, chills, sweats, weakness, malaise Respiratory: Cough. negative: Dry, Shortness of Breath, Hemoptysis, SOB with Excertion, Pleuritic Pain, Sputum, Wheezing - Medications/Allergies Allergies/Adverse Reactions: Allergies Allergy/AdvReac Type Severity Reaction Status Date / Time No Known Drug Allergies Allergy Verified 04/23/17 23:42 Medications: Current Medications Acetaminophen (Tylenol) 650 mg PO Q4H PRN PRN Reason: Headache/Fever or Pain Last Admin: 04/28/17 18:09 Dose: 650 mg Acetaminophen/Codeine Phosphate (Tylenol #3) 1 tab PO Q4H PRN PRN Reason: Moderate Pain (4-6) Last Admin: 05/10/17 17:38 Dose: 1 tab Benzonatate (Tessalon) 100 mg PO TID [facility] Last Admin: 05/11/17 10:41 Dose: 100 mg Enoxaparin Sodium (Lovenox) 40 mg SC 0900 [facility] Last Admin: 05/11/17 09:33 Dose: Not Given Famotidine (Pepcid) 20 mg PO BID [facility] Last Admin: 05/11/17 09:33 Dose: 20 mg Ferrous Sulfate (Feosol) 325 mg PO BID-[facility] Last Admin: 05/11/17 09:32 Dose: 325 mg Guaifenesin (Mucinex) 600 mg PO Q12HR [facility] Last Admin: 05/11/17 09:33 Dose: 600 mg Linezolid 600 mg/ Device 300 mls @ 150 mls/hr IVPB Q12HR [facility] Stop: 06/06/17 10:59 Last Admin: 05/11/17 10:41 Dose: 300 mls Vancomycin HCl 1.25 gm/ Sodium (Chloride) 250 mls @ 166.667 mls/hr IVPB 0700, 1500,2300 [facility] Last Admin: 05/11/17 06:27 Dose: 250 mls Ipratropium [place] (Atrovent) 2.5 ml NEB Q4H PRN PRN Reason: SOB Magnesium Hydroxide (Milk Of Magnesium) 30 ml PO DAILYPRN PRN PRN Reason: Constipation Last Admin: 04/27/17 03:44 Dose: 30 ml Miscellaneous Medication (Pharmacy To Dose) 1 each IVPB PRN PRN PRN Reason: GOAL TROUGH = 15-20 Ondansetron HCl (Zofran) 4 mg IVP Q6H PRN PRN Reason: Nausea/Vomiting Last Admin: 05/09/17 17:04 Dose: 4 mg Sodium Chloride (Flush - Normal Saline) 10 ml IVF Q12HR [facility] Last Admin: 05/11/17 10:54 Dose: 10 ml Sodium Chloride (Flush - Normal Saline) 10 ml IVF PRN PRN PRN Reason: Saline Flush Last Admin: 05/11/17 06:26 Dose: 10 ml Tramadol HCl (Ultram) 50 mg PO Q6H PRN PRN Reason: Moderate Pain (4-6) Last Admin: 05/09/17 14:25 Dose: 50 mg Zolpidem Tartrate (Ambien) 5 mg PO HS PRN PRN Reason: Insomnia
[2017-05-11] MEDS: Acetaminophen/Codeine 30-300mg Tablet PO PRN (12:54)
[2017-05-11] MEDS ORDERED: Sodium Chloride 0.9% 20 ML ONE (17:24)
[2017-05-12] MEDS: Acetaminophen 325 MG TAB PO PRN ×2 (01:35→23:44)
[2017-05-12 06:06] LABS: #Eosinphils 0.2 thou/uL (0.0-0.7); #Lymphocytes 1.4 thou/uL (1.20-3.40); #Monocytes 0.4 thou/uL (0.11-0.59); #Neutrophils 3.7 thou/uL (1.40-6.50); %Basophils 0.7 % (0.0-1.0); %Eosinophils 3.3 % (0.0-10.0); %Lymphocytes 24.2 % (28.0-48.0); %Monocytes 6.5 % (0.0-4.0); %Neutrophils 65.3 % (31.0-61.0); Hemoglobin 8.3 g/dL (12.0-16.0); Mean Corpuscular HGB CONC 32.4 g/dL (32.0-36.0); Mean Corpuscular Hemoglobin 30.7 pg (25.0-35.0); Mean Corpuscular Volume 94.8 fl (77.0-87.0); Mean Platelet Volume 5.7 fL (7.4-10.4); Platelet Count 253 thou/uL (130-400); RBC Distribution Width 16.9 % (11.5-14.5); White Blood Cell (WBC) Count 5.7 thou/uL (4.8-10.8)
[2017-05-12 06:19] LABS: ALT (SGPT) 14 U/L (8-55); AST (SGOT) 10 U/L (5-34); Albumin 3.6 g/dL (3.5-5.0); Alkaline Phosphatase 77 U/L (40-150); Anion Gap 11 mmol/L (10-20); BUN (Urea Nitrogen) 13 mg/dL (7.0-18.7); Bilirubin, Total 0.3 mg/dL (0.2-1.2); Calc. Creatinine Clearance 0 mL/min (70-130); Calcium 9.4 mg/dL (7.8-10.44); Carbon Dioxide 26 mmol/L (22-29); Chloride 105 mmol/L (98-107); Estimated GFR-MDRD Greater than 90; Globulin 2.9 g/dL (2.4-3.5); Glucose 92 mg/dL (70-105); Protein, Total 6.5 g/dL (6.0-8.3); Sodium 138 mmol/L (136-145)
[2017-05-12] MEDS: Vancomycin HCl 1.25 GM in Sodium Chloride 0.9% 250 ML 250 ML IVPB SCH ×2 (06:42→15:32)
[2017-05-12] MEDS: Enoxaparin Sodium 40 MG/0.4 ML SYRINGE SC SCH (09:41)
[2017-05-12] MEDS: Famotidine 20 MG TAB PO SCH ×2 (09:50→21:38)
[2017-05-12] MEDS: Ferrous Sulfate 325 MG TAB PO SCH ×2 (09:50→18:09)
[2017-05-12] MEDS: guaiFENesin ER 600 MG TAB PO SCH ×2 (09:50→21:38)
[2017-05-12] MEDS: Benzonatate 100 MG CAP PO SCH ×3 (09:50→21:38)
[2017-05-12] MEDS: Linezolid 600 MG in Premix Bag 1 BAG IVPB SCH ×2 (09:50→21:38)
[2017-05-12] MEDS: Ondansetron HCl/PF 4 MG/2 ML Vial IVP PRN ×2 (12:40→23:44)
--- NOTE | 2017-05-12 14:39 | PDOC.PN ---
- Subjective Encounter Start Date: 05/12/17 Encounter Start Time: 08:00 Pt seen for followup re: pneumonia. Has cough, no sputum. Had fever last night. - Objective MAR Reviewed: Yes Vital Signs & Weight: Vital Signs (12 hours) Temp Pulse Resp BP BP Pulse Ox 05/12/17 12:45 98.1 F 110 H 20 111/55 L 05/12/17 08:54 98.2 F 108 H 18 112/63 96 05/12/17 08:00 98.3 F 113 H 18 05/12/17 03:49 98.3 F 113 H 18 117/59 L 98 Weight Admit Weight 108 lb 14.4 oz Weight 1.651 oz Most Recent Monitor Data Heart Rate from ECG 80 NIBP 112/76 NIBP BP-Mean 84 Respiration from ECG 25 SpO2 100 I&O: 05/11/17 05/12/17 05/13/17 06:59 06:59 06:59 Intake Total 490 810 Balance 490 810 Result Diagrams: 05/12/17 05:17 05/12/17 05:17 Phys Exam - Physical Examination Constitutional: NAD HEENT: moist MMs Neck: supple Respiratory: clear to auscultation bilateral S1, S2, tachy, reg Gastrointestinal: soft Musculoskeletal: no edema Neurological: moves all 4 limbs Psychiatric: normal affect Dx/Plan (1) MRSA pneumonia Code(s): J15.212 - PNEUMONIA DUE TO METHICILLIN RESISTANT STAPHYLOCOCCUS AUREUS Status: Acute Qualifiers: Laterality: bilateral Comment: On Linezolid and Vancomycin, continue (2) Renal infarct Code(s): N28.0 - ISCHEMIA AND INFARCTION OF KIDNEY Status: Acute (3) Sinus tachycardia Code(s): R00.0 - TACHYCARDIA, UNSPECIFIED Status: Acute Comment: Heart rate improved today (4) Septic embolism Code(s): I26.90 - SEPTIC PULMONARY EMBOLISM WITHOUT ACUTE COR PULMONALE Status : Suspected Comment: with renal infarcts. - Plan plan discussed w/ family, continue antibiotics, out of bed/ambulate * . Review of Systems - Review of Systems Constitutional: fever. negative: chills, sweats, weakness, malaise Respiratory: Cough. negative: Dry, Shortness of Breath, Hemoptysis, SOB with Excertion, Pleuritic Pain, Sputum, Wheezing - Medications/Allergies Allergies/Adverse Reactions: Allergies Allergy/AdvReac Type Severity Reaction Status Date / Time No Known Drug Allergies Allergy Verified 04/23/17 23:42 Medications: Current Medications Acetaminophen (Tylenol) 650 mg PO Q4H PRN PRN Reason: Headache/Fever or Pain Last Admin: 05/12/17 01:35 Dose: 650 mg Acetaminophen/Codeine Phosphate (Tylenol #3) 1 tab PO Q4H PRN PRN Reason: Moderate Pain (4-6) Last Admin: 05/11/17 12:54 Dose: 1 tab Benzonatate (Tessalon) 100 mg PO TID [facility] Last Admin: 05/12/17 09:50 Dose: 100 mg Enoxaparin Sodium (Lovenox) 40 mg SC 0900 [facility] Last Admin: 05/12/17 09:41 Dose: Not Given Famotidine (Pepcid) 20 mg PO BID [facility] Last Admin: 05/12/17 09:50 Dose: 20 mg Ferrous Sulfate (Feosol) 325 mg PO BID-[facility] Last Admin: 05/12/17 09:50 Dose: 325 mg Guaifenesin (Mucinex) 600 mg PO Q12HR [facility] Last Admin: 05/12/17 09:50 Dose: 600 mg Linezolid 600 mg/ Device 300 mls @ 150 mls/hr IVPB Q12HR [facility] Stop: 06/06/17 10:59 Last Admin: 05/12/17 09:50 Dose: 300 mls Vancomycin HCl 1.25 gm/ Sodium (Chloride) 250 mls @ 166.667 mls/hr IVPB 0700, 1500,2300 [facility] Last Admin: 05/12/17 06:42 Dose: 250 mls Ipratropium [place] (Atrovent) 2.5 ml NEB Q4H PRN PRN Reason: SOB Magnesium Hydroxide (Milk Of Magnesium) 30 ml PO DAILYPRN PRN PRN Reason: Constipation Last Admin: 04/27/17 03:44 Dose: 30 ml Miscellaneous Medication (Pharmacy To Dose) 1 each IVPB PRN PRN PRN Reason: GOAL TROUGH = 15-20 Ondansetron HCl (Zofran) 4 mg IVP Q6H PRN PRN Reason: Nausea/Vomiting Last Admin: 05/12/17 12:40 Dose: 4 mg Sodium Chloride (Flush - Normal Saline) 10 ml IVF Q12HR [facility] Last Admin: 05/12/17 09:51 Dose: 10 ml Sodium Chloride (Flush - Normal Saline) 10 ml IVF PRN PRN PRN Reason: Saline Flush Last Admin: 05/11/17 06:26 Dose: 10 ml Tramadol HCl (Ultram) 50 mg PO Q6H PRN PRN Reason: Moderate Pain (4-6) Last Admin: 05/09/17 14:25 Dose: 50 mg Zolpidem Tartrate (Ambien) 5 mg PO HS PRN PRN Reason: Insomnia
[2017-05-12] MEDS ORDERED: Ondansetron ODT 4 MG TAB ONE (17:46)
[2017-05-12] MEDS ORDERED: Hydrocodone-Acetamin 15 ML UDCUP ONE (17:47)
[2017-05-13] MEDS: Vancomycin HCl 1.25 GM in Sodium Chloride 0.9% 250 ML 250 ML IVPB SCH ×4 (00:27→23:59)
[2017-05-13 06:25] LABS: #Eosinphils 0.2 thou/uL (0.0-0.7); #Lymphocytes 1.4 thou/uL (1.20-3.40); #Monocytes 0.5 thou/uL (0.11-0.59); #Neutrophils 3.6 thou/uL (1.40-6.50); %Basophils 0.6 % (0.0-1.0); %Eosinophils 3.4 % (0.0-10.0); %Lymphocytes 24.1 % (28.0-48.0); %Monocytes 8.7 % (0.0-4.0); %Neutrophils 63.3 % (31.0-61.0); Hemoglobin 8.3 g/dL (12.0-16.0); Mean Corpuscular HGB CONC 33.4 g/dL (32.0-36.0); Mean Corpuscular Hemoglobin 31.1 pg (25.0-35.0); Mean Corpuscular Volume 92.9 fl (77.0-87.0); Mean Platelet Volume 5.2 fL (7.4-10.4); Platelet Count 248 thou/uL (130-400); Red Blood Cell (RBC) Count 2.67 mill/uL (4.00-5.20); White Blood Cell (WBC) Count 5.6 thou/uL (4.8-10.8)
[2017-05-13 06:58] LABS: ALT (SGPT) 13 U/L (8-55); AST (SGOT) 10 U/L (5-34); Albumin 3.4 g/dL (3.5-5.0); Alkaline Phosphatase 76 U/L (40-150); Anion Gap 11 mmol/L (10-20); BUN (Urea Nitrogen) 12 mg/dL (7.0-18.7); Bilirubin, Total 0.2 mg/dL (0.2-1.2); Calc. Creatinine Clearance 0 mL/min (70-130); Carbon Dioxide 23 mmol/L (22-29); Chloride 109 mmol/L (98-107); Estimated GFR-MDRD Greater than 90; Globulin 2.8 g/dL (2.4-3.5); Glucose 86 mg/dL (70-105); Potassium 4.2 mmol/L (3.5-5.1); Protein, Total 6.2 g/dL (6.0-8.3); Sodium 139 mmol/L (136-145)
[2017-05-13] MEDS: Linezolid 600 MG in Premix Bag 1 BAG IVPB SCH ×2 (08:56→21:15)
[2017-05-13] MEDS ORDERED: Pantoprazole 40 MG VIAL IVP SCH (09:00)
[2017-05-13] MEDS: Ferrous Sulfate 325 MG TAB PO SCH ×2 (09:04→17:26)
[2017-05-13] MEDS: guaiFENesin ER 600 MG TAB PO SCH ×2 (09:05→21:10)
[2017-05-13] MEDS: Enoxaparin Sodium 40 MG/0.4 ML SYRINGE SC SCH (09:05)
[2017-05-13] MEDS: Famotidine 20 MG TAB PO SCH (09:05)
[2017-05-13] MEDS: Benzonatate 100 MG CAP PO SCH ×3 (09:08→21:10)
--- NOTE | 2017-05-13 12:18 | PDOC.PN ---
- Subjective Encounter Start Date: 05/13/17 Encounter Start Time: 07:40 Pt seen for followup re: pneumonia. Reports occasional cough, no sputum. Vomited today, reports blood in vomitus. - Objective MAR Reviewed: Yes Vital Signs & Weight: Vital Signs (12 hours) Temp Pulse Resp BP BP Pulse Ox 05/13/17 11:57 99.5 F 124 H 20 106/56 L 99 05/13/17 08:10 98.2 F 102 H 20 100 05/13/17 08:00 98.1 F 98 20 97/54 L 98 05/13/17 05:45 98.2 F 102 H 20 94/50 L 96 05/13/17 01:15 114 H 98 Weight Admit Weight 108 lb 14.4 oz Weight 1.651 oz Most Recent Monitor Data Heart Rate from ECG 80 NIBP 112/76 NIBP BP-Mean 84 Respiration from ECG 25 SpO2 100 I&O: 05/12/17 05/13/17 05/14/17 06:59 06:59 06:59 Intake Total 810 600 Balance 810 600 Result Diagrams: 05/13/17 05:37 05/13/17 05:37 Phys Exam - Physical Examination Constitutional: NAD HEENT: moist MMs Neck: supple Respiratory: clear to auscultation bilateral Cardiovascular: RRR Gastrointestinal: soft Neurological: moves all 4 limbs Psychiatric: normal affect Dx/Plan (1) MRSA pneumonia Code(s): J15.212 - PNEUMONIA DUE TO METHICILLIN RESISTANT STAPHYLOCOCCUS AUREUS Status: Acute Qualifiers: Laterality: bilateral Comment: continue Linezolid and Vancomycin (2) Hematemesis Code(s): K92.0 - HEMATEMESIS Status: Acute Comment: Consult GI service. Hemoglobin stable, but the lab was drawn prior to hematemesis (3) Renal infarct Code(s): N28.0 - ISCHEMIA AND INFARCTION OF KIDNEY Status: Acute (4) Sinus tachycardia Code(s): R00.0 - TACHYCARDIA, UNSPECIFIED Status: Acute Comment: Heart rate improving (5) Septic embolism Code(s): I26.90 - SEPTIC PULMONARY EMBOLISM WITHOUT ACUTE COR PULMONALE Status : Suspected Comment: with renal infarcts. - Plan plan discussed w/ family, continue antibiotics, out of bed/ambulate * . Review of Systems - Review of Systems Constitutional: negative: fever, chills, sweats, weakness, malaise Respiratory: Cough Gastrointestinal: Nausea, Vomiting, Other (hematemesis) - Medications/Allergies Allergies/Adverse Reactions: Allergies Allergy/AdvReac Type Severity Reaction Status Date / Time No Known Drug Allergies Allergy Verified 04/23/17 23:42 Medications: Current Medications Acetaminophen (Tylenol) 650 mg PO Q4H PRN PRN Reason: Headache/Fever or Pain Last Admin: 05/12/17 23:44 Dose: 650 mg Acetaminophen/Codeine Phosphate (Tylenol #3) 1 tab PO Q4H PRN PRN Reason: Moderate Pain (4-6) Last Admin: 05/11/17 12:54 Dose: 1 tab Benzonatate (Tessalon) 100 mg PO TID [facility] Last Admin: 05/13/17 09:08 Dose: 100 mg Enoxaparin Sodium (Lovenox) 40 mg SC 0900 [facility] Last Admin: 05/13/17 09:05 Dose: Not Given Famotidine (Pepcid) 20 mg PO BID [facility] Last Admin: 05/13/17 09:05 Dose: 20 mg Ferrous Sulfate (Feosol) 325 mg PO BID-[facility] Last Admin: 05/13/17 09:04 Dose: 325 mg Guaifenesin (Mucinex) 600 mg PO Q12HR [facility] Last Admin: 05/13/17 09:05 Dose: 600 mg Linezolid 600 mg/ Device 300 mls @ 150 mls/hr IVPB Q12HR [facility] Stop: 06/06/17 10:59 Last Admin: 05/13/17 08:56 Dose: 300 mls Vancomycin HCl 1.25 gm/ Sodium (Chloride) 250 mls @ 166.667 mls/hr IVPB 0700, 1500,2300 [facility] Last Admin: 05/13/17 07:20 Dose: 250 mls Ipratropium [place] (Atrovent) 2.5 ml NEB Q4H PRN PRN Reason: SOB Magnesium Hydroxide (Milk Of Magnesium) 30 ml PO DAILYPRN PRN PRN Reason: Constipation Last Admin: 04/27/17 03:44 Dose: 30 ml Miscellaneous Medication (Pharmacy To Dose) 1 each IVPB PRN PRN PRN Reason: GOAL TROUGH = 15-20 Ondansetron HCl (Zofran) 4 mg IVP Q6H PRN PRN Reason: Nausea/Vomiting Last Admin: 05/12/17 23:44 Dose: 4 mg Sodium Chloride (Flush - Normal Saline) 10 ml IVF Q12HR [facility] Last Admin: 05/13/17 09:14 Dose: Not Given Sodium Chloride (Flush - Normal Saline) 10 ml IVF PRN PRN PRN Reason: Saline Flush Last Admin: 05/12/17 23:44 Dose: 10 ml Tramadol HCl (Ultram) 50 mg PO Q6H PRN PRN Reason: Moderate Pain (4-6) Last Admin: 05/09/17 14:25 Dose: 50 mg Zolpidem Tartrate (Ambien) 5 mg PO HS PRN PRN Reason: Insomnia
[2017-05-13] MEDS: Acetaminophen/Codeine 30-300mg Tablet PO PRN (15:44)
[2017-05-13] MEDS: Ondansetron HCl/PF 4 MG/2 ML Vial IVP PRN (16:20)
[2017-05-13] MEDS: Pantoprazole 40 MG VIAL IVP SCH (21:11)
[2017-05-14 05:46] LABS: #Eosinphils 0.2 thou/uL (0.0-0.7); #Lymphocytes 1.4 thou/uL (1.20-3.40); #Monocytes 0.5 thou/uL (0.11-0.59); #Neutrophils 4.1 thou/uL (1.40-6.50); %Basophils 0.5 % (0.0-1.0); %Eosinophils 3.4 % (0.0-10.0); %Monocytes 7.7 % (0.0-4.0); %Neutrophils 65.5 % (31.0-61.0); Mean Corpuscular HGB CONC 32.8 g/dL (32.0-36.0); Mean Corpuscular Hemoglobin 30.2 pg (25.0-35.0); Mean Corpuscular Volume 92.1 fl (77.0-87.0); Mean Platelet Volume 4.9 fL (7.4-10.4); Platelet Count 240 thou/uL (130-400); RBC Distribution Width 16.9 % (11.5-14.5); Red Blood Cell (RBC) Count 2.66 mill/uL (4.00-5.20); White Blood Cell (WBC) Count 6.3 thou/uL (4.8-10.8)
[2017-05-14 06:17] LABS: ALT (SGPT) 11 U/L (8-55); AST (SGOT) 8 U/L (5-34); Albumin 3.5 g/dL (3.5-5.0); Alkaline Phosphatase 77 U/L (40-150); Anion Gap 8 mmol/L (10-20); BUN (Urea Nitrogen) 8 mg/dL (7.0-18.7); Bilirubin, Total 0.2 mg/dL (0.2-1.2); Calc. Creatinine Clearance 0 mL/min (70-130); Carbon Dioxide 26 mmol/L (22-29); Chloride 108 mmol/L (98-107); Estimated GFR-MDRD Greater than 90; Globulin 2.6 g/dL (2.4-3.5); Glucose 90 mg/dL (70-105); Potassium 3.7 mmol/L (3.5-5.1); Protein, Total 6.1 g/dL (6.0-8.3); Sodium 138 mmol/L (136-145)
[2017-05-14] MEDS: Vancomycin HCl 1.25 GM in Sodium Chloride 0.9% 250 ML 250 ML IVPB SCH ×2 (06:48→15:07)
[2017-05-14] MEDS: guaiFENesin ER 600 MG TAB PO SCH ×2 (09:39→22:05)
[2017-05-14] MEDS: Ferrous Sulfate 325 MG TAB PO SCH ×2 (09:39→17:19)
[2017-05-14] MEDS: Linezolid 600 MG in Premix Bag 1 BAG IVPB SCH ×2 (09:42→22:02)
[2017-05-14] MEDS: Enoxaparin Sodium 40 MG/0.4 ML SYRINGE SC SCH (09:51)
[2017-05-14] MEDS: Benzonatate 100 MG CAP PO SCH ×3 (09:59→22:05)
--- NOTE | 2017-05-14 11:45 | CON ---
DATE OF CONSULTATION: 05/13/2017 REASON FOR CONSULTATION: "Hematemesis." HISTORY OF PRESENT ILLNESS: Ms. Davalos is a pleasant 22-year-old. She has been in the hospital [facility] e the first week of this month and she is here mainly for a diagnosis of MRSA with complications, end ophthalmitis and lung abscesses. She has been seen by ID. She had a negative TB skin test and HIV t est, negative fungal smears, evaluations for coagulation disorders and autoimmune disorder, which all been negative. Her hemoglobin has been ranging around 9. Today apparently she states she threw up some blood. She said she had a bad smell in fact someone had passed gas in the room and she states t hat the smell was very bad, started laughing, but made her nauseated and she retched once and she saw slimy sputum with a slight bit of bright red blood. There were no large clots. There was not a lar ge amount of this. It did not happen again. She states she has been somewhat nausea with food prese ntation since she has been on antibiotics. She denies any history of reflux, dysphagia, odynophagia or epigastric pain. She has had no melena. She has had no bowel movements today. PAST MEDICAL HISTORY: "Lupus," although it is unclear if that has been clearly diagnosed. PAST SURGICAL HISTORY: section. MEDICATIONS AT HOME: Depo-Provera. ALLERGIES: None. PRESENT MEDICATIONS: P.r.n. Tylenol, Tylenol #3, Tessalon, Lovenox, Pepcid, iron, Mucinex, Atrovent, Linezolid, Milk of Magnesia, tramadol, and vancomycin. PHYSICAL EXAMINATION: GENERAL: The patient is resting comfortably in bed. VITAL SIGNS: Temperature is 99, pulse is 124-102, blood pressure 106/56. HEENT: Oropharynx without lesions. NECK: Supple, without adenopathy. LUNGS: Clear. HEART: Regular rate and rhythm without clicks or murmurs. ABDOMEN: Nontender. LABORATORY DATA: Hemoglobin is 8.2 this morning and 9 this afternoon. ASSESSMENT: Reported "hematemesis" and talking with her that seems to have maybe been related to Mal [place] tear, maybe has been hemoptysis. She has coughed up blood, pretty much at all times she h as been here in the hospital. There are no signs of acute GI hemorrhage. RECOMMENDATIONS: 1. P.r.n. Zofran for nausea, possibly before meals with her nausea. 2. Change ulcer prophylaxis to a PPI. At this time, we will follow from a distance. If I can be of any further assistance in her care, ple ase do not hesitate to contact me.
[2017-05-14] MEDS: Acetaminophen 325 MG TAB PO PRN (17:29)
--- NOTE | 2017-05-14 17:58 | PDOC.PN ---
- Subjective Encounter Start Date: 05/14/17 Encounter Start Time: 08:20 Pt seen for followup re: MRSA pneumonia. Reports cough, sputum. No fevers or chills. - Objective MAR Reviewed: Yes Vital Signs & Weight: Vital Signs (12 hours) Temp Pulse Resp BP Pulse Ox 05/14/17 16:00 99.5 F 115 H 20 105/59 L 95 05/14/17 11:50 99.4 F 107 H 20 104/65 97 05/14/17 11:11 99.1 F 107 H 20 95 05/14/17 08:20 99.1 F 05/14/17 07:59 100.2 F H 107 H 20 98/55 L Weight Admit Weight 108 lb 14.4 oz Weight 1.651 oz Most Recent Monitor Data Heart Rate from ECG 80 NIBP 112/76 NIBP BP-Mean 84 Respiration from ECG 25 SpO2 100 I&O: 05/13/17 05/14/17 05/15/17 06:59 06:59 06:59 Intake Total 600 835 Balance 600 835 Result Diagrams: 05/14/17 05:34 05/14/17 05:34 Phys Exam - Physical Examination Constitutional: NAD HEENT: moist MMs Neck: supple Respiratory: clear to auscultation bilateral Cardiovascular: RRR Gastrointestinal: soft Neurological: moves all 4 limbs Psychiatric: normal affect Skin: no rash Dx/Plan (1) MRSA pneumonia Code(s): J15.212 - PNEUMONIA DUE TO METHICILLIN RESISTANT STAPHYLOCOCCUS AUREUS Status: Acute Qualifiers: Laterality: bilateral Comment: On Linezolid and Vancomycin (2) Renal infarct Code(s): N28.0 - ISCHEMIA AND INFARCTION OF KIDNEY Status: Acute (3) Sinus tachycardia Code(s): R00.0 - TACHYCARDIA, UNSPECIFIED Status: Acute Comment: Continue to monitor vital signs (4) Septic embolism Code(s): I26.90 - SEPTIC PULMONARY EMBOLISM WITHOUT ACUTE COR PULMONALE Status : Suspected Comment: with renal infarcts. (5) Hematemesis Code(s): K92.0 - HEMATEMESIS Status: Resolved - Plan * . Review of Systems - Review of Systems Constitutional: negative: fever, chills, sweats, weakness, malaise Respiratory: Cough, Sputum. negative: Dry, Shortness of Breath, Hemoptysis, SOB with Excertion, Pleuritic Pain, Wheezing Gastrointestinal: negative: Nausea, Vomiting, Abdominal Pain, Diarrhea, Constipation, Melena, Hematochezia - Medications/Allergies Allergies/Adverse Reactions: Allergies Allergy/AdvReac Type Severity Reaction Status Date / Time No Known Drug Allergies Allergy Verified 04/23/17 23:42 Medications: Current Medications Acetaminophen (Tylenol) 650 mg PO Q4H PRN PRN Reason: Headache/Fever or Pain Last Admin: 05/14/17 17:29 Dose: 650 mg Acetaminophen/Codeine Phosphate (Tylenol #3) 1 tab PO Q4H PRN PRN Reason: Moderate Pain (4-6) Last Admin: 05/13/17 15:44 Dose: 1 tab Benzonatate (Tessalon) 100 mg PO TID [facility] Last Admin: 05/14/17 15:07 Dose: 100 mg Enoxaparin Sodium (Lovenox) 40 mg SC 0900 [facility] Last Admin: 05/14/17 09:51 Dose: Not Given Ferrous Sulfate (Feosol) 325 mg PO BID[facility] Last Admin: 05/14/17 17:19 Dose: 325 mg Guaifenesin (Mucinex) 600 mg PO Q12HR [facility] Last Admin: 05/14/17 09:39 Dose: 600 mg Linezolid 600 mg/ Device 300 mls @ 150 mls/hr IVPB Q12HR [facility] Stop: 06/06/17 10:59 Last Admin: 05/14/17 09:42 Dose: 300 mls Vancomycin HCl 1.25 gm/ Sodium (Chloride) 250 mls @ 166.667 mls/hr IVPB 0700, 1500,2300 [facility] Last Admin: 05/14/17 15:07 Dose: 250 mls Ipratropium [place] (Atrovent) 2.5 ml NEB Q4H PRN PRN Reason: SOB Magnesium Hydroxide (Milk Of Magnesium) 30 ml PO DAILYPRN PRN PRN Reason: Constipation Last Admin: 04/27/17 03:44 Dose: 30 ml Miscellaneous Medication (Pharmacy To Dose) 1 each IVPB PRN PRN PRN Reason: GOAL TROUGH = 15-20 Ondansetron HCl (Zofran) 4 mg IVP Q6H PRN PRN Reason: Nausea/Vomiting Last Admin: 05/13/17 16:20 Dose: 4 mg Pantoprazole Sodium (Protonix) 40 mg IVP [facility] Last Admin: 05/13/17 21:11 Dose: 40 mg Sodium Chloride (Flush - Normal Saline) 10 ml IVF Q12HR [facility] Last Admin: 05/14/17 09:40 Dose: 10 ml Sodium Chloride (Flush - Normal Saline) 10 ml IVF PRN PRN PRN Reason: Saline Flush Last Admin: 05/12/17 23:44 Dose: 10 ml Tramadol HCl (Ultram) 50 mg PO Q6H PRN PRN Reason: Moderate Pain (4-6) Last Admin: 05/09/17 14:25 Dose: 50 mg Zolpidem Tartrate (Ambien) 5 mg PO HS PRN PRN Reason: Insomnia
[2017-05-14] MEDS: Pantoprazole 40 MG VIAL IVP SCH (22:09)
[2017-05-15] MEDS: Vancomycin HCl 1.25 GM in Sodium Chloride 0.9% 250 ML 250 ML IVPB SCH ×3 (00:12→15:57)
[2017-05-15] MEDS: Ondansetron HCl/PF 4 MG/2 ML Vial IVP PRN ×2 (00:13→09:31)
[2017-05-15] MEDS: Acetaminophen/Codeine 30-300mg Tablet PO PRN (02:05)
[2017-05-15 04:57] LABS: #Eosinphils 0.2 thou/uL (0.0-0.7); #Lymphocytes 1.4 thou/uL (1.20-3.40); #Monocytes 0.3 thou/uL (0.11-0.59); #Neutrophils 2.4 thou/uL (1.40-6.50); %Basophils 0.2 % (0.0-1.0); %Eosinophils 3.5 % (0.0-10.0); %Monocytes 7.5 % (0.0-4.0); %Neutrophils 56.8 % (31.0-61.0); Hemoglobin 8.7 g/dL (12.0-16.0); Mean Corpuscular HGB CONC 33.5 g/dL (32.0-36.0); Mean Corpuscular Hemoglobin 31.5 pg (25.0-35.0); Mean Platelet Volume 5.3 fL (7.4-10.4); Platelet Count 258 thou/uL (130-400); RBC Distribution Width 16.6 % (11.5-14.5); Red Blood Cell (RBC) Count 2.76 mill/uL (4.00-5.20); White Blood Cell (WBC) Count 4.3 thou/uL (4.8-10.8)
[2017-05-15 05:15] LABS: ALT (SGPT) 11 U/L (8-55); AST (SGOT) 8 U/L (5-34); Albumin 3.7 g/dL (3.5-5.0); Alkaline Phosphatase 76 U/L (40-150); Anion Gap 9 mmol/L (10-20); BUN (Urea Nitrogen) 6 mg/dL (7.0-18.7); Bilirubin, Total 0.2 mg/dL (0.2-1.2); Calc. Creatinine Clearance 0 mL/min (70-130); Calcium 9.3 mg/dL (7.8-10.44); Carbon Dioxide 26 mmol/L (22-29); Chloride 107 mmol/L (98-107); Estimated GFR-MDRD Greater than 90; Globulin 2.8 g/dL (2.4-3.5); Glucose 91 mg/dL (70-105); Potassium 3.4 mmol/L (3.5-5.1); Protein, Total 6.5 g/dL (6.0-8.3); Sodium 139 mmol/L (136-145)
[2017-05-15] MEDS: guaiFENesin ER 600 MG TAB PO SCH ×2 (07:56→21:11)
[2017-05-15] MEDS: Ferrous Sulfate 325 MG TAB PO SCH ×2 (07:56→15:57)
[2017-05-15] MEDS: Benzonatate 100 MG CAP PO SCH ×3 (07:56→21:11)
[2017-05-15] MEDS: Enoxaparin Sodium 40 MG/0.4 ML SYRINGE SC SCH (07:57)
[2017-05-15] MEDS: Linezolid 600 MG in Premix Bag 1 BAG IVPB SCH ×2 (09:43→21:11)
[2017-05-15 14:30] LABS: Vancomycin, Trough 20.1 ug/mL
--- NOTE | 2017-05-15 17:03 | PDOC.PN ---
- Subjective Encounter Start Date: 05/15/17 Encounter Start Time: 09:20 Pt seen for followup re: pneumonia. Reports cough, nausea. No fevers or chills. - Objective MAR Reviewed: Yes Vital Signs & Weight: Vital Signs (12 hours) Temp Pulse Resp BP BP Pulse Ox 05/15/17 12:00 99.4 F 117 H 20 101/62 97 05/15/17 08:00 98.1 F 108 H 16 99 05/15/17 07:45 98.1 F 108 H 16 91/60 99 Weight Admit Weight 108 lb 14.4 oz Weight 1.651 oz Most Recent Monitor Data Heart Rate from ECG 80 NIBP 112/76 NIBP BP-Mean 84 Respiration from ECG 25 SpO2 100 I&O: 05/14/17 05/15/17 05/16/17 06:59 06:59 06:59 Intake Total 835 180 Balance 835 180 Result Diagrams: 05/15/17 03:57 05/15/17 03:57 Phys Exam - Physical Examination Constitutional: NAD HEENT: moist MMs Neck: supple Respiratory: clear to auscultation bilateral Cardiovascular: RRR Gastrointestinal: soft Neurological: moves all 4 limbs Dx/Plan (1) MRSA pneumonia Code(s): J15.212 - PNEUMONIA DUE TO METHICILLIN RESISTANT STAPHYLOCOCCUS AUREUS Status: Acute Qualifiers: Laterality: bilateral Comment: continue Linezolid and Vancomycin (2) Renal infarct Code(s): N28.0 - ISCHEMIA AND INFARCTION OF KIDNEY Status: Acute (3) Sinus tachycardia Code(s): R00.0 - TACHYCARDIA, UNSPECIFIED Status: Acute Comment: Continue to monitor vital signs. PE ruled out twice, normal TSH. (4) Septic embolism Code(s): I26.90 - SEPTIC PULMONARY EMBOLISM WITHOUT ACUTE COR PULMONALE Status : Suspected Comment: with renal infarcts. (5) Hematemesis Code(s): K92.0 - HEMATEMESIS Status: Resolved Comment: No recurrence, hemoglobin stable - Plan * . Review of Systems - Review of Systems Respiratory: negative: Cough, Dry, Shortness of Breath, Hemoptysis, SOB with Excertion, Pleuritic Pain, Sputum, Wheezing Cardiovascular: negative: chest pain, palpitations, orthopnea, paroxysmal nocturnal dyspnea, edema, light headedness - Medications/Allergies Allergies/Adverse Reactions: Allergies Allergy/AdvReac Type Severity Reaction Status Date / Time No Known Drug Allergies Allergy Verified 04/23/17 23:42 Medications: Current Medications Acetaminophen (Tylenol) 650 mg PO Q4H PRN PRN Reason: Headache/Fever or Pain Last Admin: 05/14/17 17:29 Dose: 650 mg Acetaminophen/Codeine Phosphate (Tylenol #3) 1 tab PO Q4H PRN PRN Reason: Moderate Pain (4-6) Last Admin: 05/15/17 02:05 Dose: 1 tab Benzonatate (Tessalon) 100 mg PO TID [facility] Last Admin: 05/15/17 15:57 Dose: 100 mg Enoxaparin Sodium (Lovenox) 40 mg SC 0900 [facility] Last Admin: 05/15/17 07:57 Dose: Not Given Ferrous Sulfate (Feosol) 325 mg PO BID-[facility] Last Admin: 05/15/17 15:57 Dose: 325 mg Guaifenesin (Mucinex) 600 mg PO Q12HR [facility] Last Admin: 05/15/17 07:56 Dose: 600 mg Linezolid 600 mg/ Device 300 mls @ 150 mls/hr IVPB Q12HR [facility] Stop: 06/06/17 10:59 Last Admin: 05/15/17 09:43 Dose: 300 mls Vancomycin HCl 1.25 gm/ Sodium (Chloride) 250 mls @ 166.667 mls/hr IVPB 0700, 1500,2300 [facility] Last Admin: 05/15/17 15:57 Dose: 250 mls Ipratropium [place] (Atrovent) 2.5 ml NEB Q4H PRN PRN Reason: SOB Magnesium Hydroxide (Milk Of Magnesium) 30 ml PO DAILYPRN PRN PRN Reason: Constipation Last Admin: 04/27/17 03:44 Dose: 30 ml Miscellaneous Medication (Pharmacy To Dose) 1 each IVPB PRN PRN PRN Reason: GOAL TROUGH = 15-20 Ondansetron HCl (Zofran) 4 mg IVP Q6H PRN PRN Reason: Nausea/Vomiting Last Admin: 05/15/17 09:31 Dose: 4 mg Pantoprazole Sodium (Protonix) 40 mg IVP HS [facility] Last Admin: 05/14/17 22:09 Dose: 40 mg Sodium Chloride (Flush - Normal Saline) 10 ml IVF Q12HR [facility] Last Admin: 05/15/17 07:57 Dose: 10 ml Sodium Chloride (Flush - Normal Saline) 10 ml IVF PRN PRN PRN Reason: Saline Flush Last Admin: 05/12/17 23:44 Dose: 10 ml Tramadol HCl (Ultram) 50 mg PO Q6H PRN PRN Reason: Moderate Pain (4-6) Last Admin: 05/09/17 14:25 Dose: 50 mg Zolpidem Tartrate (Ambien) 5 mg PO HS PRN PRN Reason: Insomnia
[2017-05-15] MEDS: Pantoprazole 40 MG VIAL IVP SCH (21:11)
[2017-05-16] MEDS: Vancomycin HCl 1.25 GM in Sodium Chloride 0.9% 250 ML 250 ML IVPB SCH ×4 (00:15→23:54)
[2017-05-16] MEDS: Enoxaparin Sodium 40 MG/0.4 ML SYRINGE SC SCH (07:54)
[2017-05-16] MEDS: Benzonatate 100 MG CAP PO SCH ×3 (07:55→20:11)
[2017-05-16] MEDS: Ferrous Sulfate 325 MG TAB PO SCH ×2 (07:55→15:54)
[2017-05-16] MEDS: guaiFENesin ER 600 MG TAB PO SCH ×2 (07:55→20:11)
[2017-05-16] MEDS: Linezolid 600 MG in Premix Bag 1 BAG IVPB SCH ×2 (09:27→20:11)
--- NOTE | 2017-05-16 13:15 | PDOC.PN ---
- Subjective Encounter Start Date: 05/16/17 Encounter Start Time: 11:15 Subjective: no chest pain or sob -: is amb in room -: has cough - Objective MAR Reviewed: Yes Vital Signs & Weight: Vital Signs (12 hours) Temp Pulse Resp BP Pulse Ox 05/16/17 11:52 98.4 F 122 H 18 108/72 98 05/16/17 08:00 98.7 F 103 H 20 99 05/16/17 07:26 98.7 F 103 H 20 97/63 99 Weight Admit Weight 108 lb 14.4 oz Weight 1.651 oz Most Recent Monitor Data Heart Rate from ECG 80 NIBP 112/76 NIBP BP-Mean 84 Respiration from ECG 25 SpO2 100 I&O: 05/15/17 05/16/17 05/17/17 06:59 06:59 06:59 Intake Total 1325 Balance 1325 Result Diagrams: 05/15/17 03:57 05/15/17 03:57 Phys Exam - Physical Examination HEENT: PERRLA, moist MMs Neck: no JVD, supple Respiratory: no wheezing, no rales Cardiovascular: RRR, no significant murmur Gastrointestinal: soft, non-tender, positive bowel sounds Musculoskeletal: no edema, pulses present Neurological: non-focal, moves all 4 limbs Psychiatric: A&O x 3 Dx/Plan (1) MRSA pneumonia Code(s): J15.212 - PNEUMONIA DUE TO METHICILLIN RESISTANT STAPHYLOCOCCUS AUREUS Status: Acute Qualifiers: Laterality: bilateral (2) Sepsis Code(s): A41.9 - SEPSIS, UNSPECIFIED ORGANISM Status: Acute Qualifiers: Sepsis type: methicillin resistant Staphylococcus aureus Qualified Code(s) : A41.02 - Sepsis due to Methicillin resistant Staphylococcus aureus (3) Septic embolism Code(s): I26.90 - SEPTIC PULMONARY EMBOLISM WITHOUT ACUTE COR PULMONALE Status : Suspected Comment: with renal infarcts. - Plan is on both zyvox and vanc, per ID advice -: nebs prn -: family at bedside -: is awaiting outpt antibiotic arrangement * . Review of Systems - Medications/Allergies Allergies/Adverse Reactions: Allergies Allergy/AdvReac Type Severity Reaction Status Date / Time No Known Drug Allergies Allergy Verified 04/23/17 23:42 Medications: Current Medications Acetaminophen (Tylenol) 650 mg PO Q4H PRN PRN Reason: Headache/Fever or Pain Last Admin: 05/14/17 17:29 Dose: 650 mg Acetaminophen/Codeine Phosphate (Tylenol #3) 1 tab PO Q4H PRN PRN Reason: Moderate Pain (4-6) Last Admin: 05/15/17 02:05 Dose: 1 tab Benzonatate (Tessalon) 100 mg PO TID [facility] Last Admin: 05/16/17 07:55 Dose: 100 mg Enoxaparin Sodium (Lovenox) 40 mg SC 0900 [facility] Last Admin: 05/16/17 07:54 Dose: Not Given Ferrous Sulfate (Feosol) 325 mg PO BID-[facility] Last Admin: 05/16/17 07:55 Dose: 325 mg Guaifenesin (Mucinex) 600 mg PO Q12HR [facility] Last Admin: 05/16/17 07:55 Dose: 600 mg Linezolid 600 mg/ Device 300 mls @ 150 mls/hr IVPB Q12HR [facility] Stop: 06/06/17 10:59 Last Admin: 05/16/17 09:27 Dose: 300 mls Vancomycin HCl 1.25 gm/ Sodium (Chloride) 250 mls @ 166.667 mls/hr IVPB 0700, 1500,2300 [facility] Last Admin: 05/16/17 05:45 Dose: 250 mls Ipratropium [place] (Atrovent) 2.5 ml NEB Q4H PRN PRN Reason: SOB Magnesium Hydroxide (Milk Of Magnesium) 30 ml PO DAILYPRN PRN PRN Reason: Constipation Last Admin: 04/27/17 03:44 Dose: 30 ml Miscellaneous Medication (Pharmacy To Dose) 1 each IVPB PRN PRN PRN Reason: GOAL TROUGH = 15-20 Ondansetron HCl (Zofran) 4 mg IVP Q6H PRN PRN Reason: Nausea/Vomiting Last Admin: 05/15/17 09:31 Dose: 4 mg Pantoprazole Sodium (Protonix) 40 mg IVP HS [facility] Last Admin: 05/15/17 21:11 Dose: 40 mg Sodium Chloride (Flush - Normal Saline) 10 ml IVF Q12HR [facility] Last Admin: 05/16/17 07:54 Dose: 10 ml Sodium Chloride (Flush - Normal Saline) 10 ml IVF PRN PRN PRN Reason: Saline Flush Last Admin: 05/12/17 23:44 Dose: 10 ml Tramadol HCl (Ultram) 50 mg PO Q6H PRN PRN Reason: Moderate Pain (4-6) Last Admin: 05/09/17 14:25 Dose: 50 mg Zolpidem Tartrate (Ambien) 5 mg PO HS PRN PRN Reason: Insomnia
[2017-05-16] MEDS: Acetaminophen 325 MG TAB PO PRN (14:51)
[2017-05-16] MEDS: Ondansetron HCl/PF 4 MG/2 ML Vial IVP PRN ×2 (15:52→22:32)
[2017-05-16] MEDS: Pantoprazole 40 MG VIAL IVP SCH (20:11)
[2017-05-16] MEDS: traMADol HCl 50 MG TAB PO PRN (22:36)
[2017-05-16] MEDS: Acetaminophen/Codeine 30-300mg Tablet PO PRN (23:53)
[2017-05-17] MEDS: Enoxaparin Sodium 40 MG/0.4 ML SYRINGE SC SCH (07:54)
[2017-05-17] MEDS: Vancomycin HCl 1.25 GM in Sodium Chloride 0.9% 250 ML 250 ML IVPB SCH ×3 (08:02→23:11)
[2017-05-17] MEDS: Benzonatate 100 MG CAP PO SCH ×3 (08:03→19:56)
[2017-05-17] MEDS: Ferrous Sulfate 325 MG TAB PO SCH ×2 (08:03→15:27)
[2017-05-17] MEDS: guaiFENesin ER 600 MG TAB PO SCH ×2 (08:03→20:56)
[2017-05-17] MEDS: Linezolid 600 MG in Premix Bag 1 BAG IVPB SCH ×2 (09:42→20:56)
--- NOTE | 2017-05-17 11:49 | PDOC.PN ---
- Subjective Encounter Start Date: 05/17/17 Encounter Start Time: 08:25 Subjective: no sob, has dry cough -: is eating better - Objective MAR Reviewed: Yes Vital Signs & Weight: Vital Signs (12 hours) Temp Pulse Resp BP BP Pulse Ox 05/17/17 08:00 98.2 F 99 18 99/63 99 05/17/17 00:00 120 H 16 112/64 99 Weight Admit Weight 108 lb 14.4 oz Weight 1.651 oz Most Recent Monitor Data Heart Rate from ECG 80 NIBP 112/76 NIBP BP-Mean 84 Respiration from ECG 25 SpO2 100 I&O: 05/16/17 05/17/17 05/18/17 06:59 06:59 06:59 Intake Total 1325 Balance 1325 Result Diagrams: 05/15/17 03:57 05/15/17 03:57 Phys Exam - Physical Examination HEENT: PERRLA, moist MMs Neck: no JVD, supple Respiratory: no wheezing, no rales Cardiovascular: RRR, no significant murmur Gastrointestinal: soft, non-tender, positive bowel sounds Musculoskeletal: no edema, pulses present Neurological: non-focal, moves all 4 limbs Psychiatric: normal affect, A&O x 3 Dx/Plan (1) MRSA pneumonia Code(s): J15.212 - PNEUMONIA DUE TO METHICILLIN RESISTANT STAPHYLOCOCCUS AUREUS Status: Acute Qualifiers: Laterality: bilateral (2) Sepsis Code(s): A41.9 - SEPSIS, UNSPECIFIED ORGANISM Status: Acute Qualifiers: Sepsis type: methicillin resistant Staphylococcus aureus Qualified Code(s) : A41.02 - Sepsis due to Methicillin resistant Staphylococcus aureus (3) Septic embolism Code(s): I26.90 - SEPTIC PULMONARY EMBOLISM WITHOUT ACUTE COR PULMONALE Status : Suspected Comment: with renal infarcts. - Plan is on zyvox and vanc -: awaiting outpt antibiotic arrangement till 06/06/17 -: hemostable -: to amb in hallway as tolerated -: denies ever using iv drugs or in other forms * . Review of Systems - Medications/Allergies Allergies/Adverse Reactions: Allergies Allergy/AdvReac Type Severity Reaction Status Date / Time No Known Drug Allergies Allergy Verified 04/23/17 23:42 Medications: Current Medications Acetaminophen (Tylenol) 650 mg PO Q4H PRN PRN Reason: Headache/Fever or Pain Last Admin: 05/16/17 14:51 Dose: 650 mg Acetaminophen/Codeine Phosphate (Tylenol #3) 1 tab PO Q4H PRN PRN Reason: Moderate Pain (4-6) Last Admin: 05/16/17 23:53 Dose: 1 tab Benzonatate (Tessalon) 100 mg PO TID [facility] Last Admin: 05/17/17 08:03 Dose: 100 mg Enoxaparin Sodium (Lovenox) 40 mg SC 0900 [facility] Last Admin: 05/17/17 07:54 Dose: Not Given Ferrous Sulfate (Feosol) 325 mg PO BID-[facility] Last Admin: 05/17/17 08:03 Dose: 325 mg Guaifenesin (Mucinex) 600 mg PO Q12HR [facility] Last Admin: 05/17/17 08:03 Dose: 600 mg Vancomycin HCl 1.25 gm/ Sodium (Chloride) 250 mls @ 166.667 mls/hr IVPB 0700, 1500,2300 [facility] Last Admin: 05/17/17 08:02 Dose: 250 mls Linezolid 600 mg/ Device 300 mls @ 150 mls/hr IVPB Q12HR [facility] Stop: 06/06/17 10:59 Last Admin: 05/17/17 09:42 Dose: 300 mls Ipratropium [place] (Atrovent) 2.5 ml NEB Q4H PRN PRN Reason: SOB Magnesium Hydroxide (Milk Of Magnesium) 30 ml PO DAILYPRN PRN PRN Reason: Constipation Last Admin: 04/27/17 03:44 Dose: 30 ml Miscellaneous Medication (Pharmacy To Dose) 1 each IVPB PRN PRN PRN Reason: GOAL TROUGH = 15-20 Ondansetron HCl (Zofran) 4 mg IVP Q6H PRN PRN Reason: Nausea/Vomiting Last Admin: 05/16/17 22:32 Dose: 4 mg Pantoprazole Sodium (Protonix) 40 mg IVP HS [facility] Last Admin: 05/16/17 20:11 Dose: 40 mg Sodium Chloride (Flush - Normal Saline) 10 ml IVF Q12HR [facility] Last Admin: 05/17/17 08:04 Dose: 10 ml Sodium Chloride (Flush - Normal Saline) 10 ml IVF PRN PRN PRN Reason: Saline Flush Last Admin: 05/12/17 23:44 Dose: 10 ml Tramadol HCl (Ultram) 50 mg PO Q6H PRN PRN Reason: Moderate Pain (4-6) Last Admin: 05/16/17 22:36 Dose: 50 mg Zolpidem Tartrate (Ambien) 5 mg PO HS PRN PRN Reason: Insomnia
--- NOTE | 2017-05-17 16:06 | SPC ---
RIGHT UPPER EXTREMITY PICC LINE ULTRASOUND AND FLUOROSCOPIC GUIDANCE: PROCEDURE: After informed consent had been obtained, the patient was placed on the interventional suite table in a supine position. The right arm was prepped and draped in a standard sterile fashion. Topical ane sthesia was achieved utilizing 1% Lidocaine and sodium bicarbonate. Under real-time sonography, the basilic vein of the right upper extremity was accessed with a small caliber needle with venous flash present at the needle hub. A guidewire was then advanced in to the needle, and under real-time fluor oscopy, the guidewire was advanced to the level of the inferior vena cava to confirm appropriate veno us placement. A small skin incision was made and the needle was removed. Over the guidewire, a sing le lumen PICC line was cut to 39 cm. The PICC line was advanced under real-time fluoroscopy over the guidewire to the level of the cavoatrial junction. The guidewire and peelaway sheath were then emiliano leobardo. PICC line flushed and aspirated appropriately and was secured to the right upper extremity. Th ere were no procedural complications. 0.0 minutes intermittent fluoroscopy, 11 mGy*^cm2. IMPRESSION: Technically successful ultrasound and fluoroscopic-guided right PICC line placement, as above. POS: [facility]
[2017-05-17] MEDS: Diabetic Tussin 200 MG/10 ML UDCUP PO PRN (16:08)
[2017-05-17] MEDS: Ondansetron HCl/PF 4 MG/2 ML Vial IVP PRN (17:37)
--- NOTE | 2017-05-17 19:43 | RAD ---
TWO VIEW CHEST: INDICATIONS: Assess PICC line location. Shortness of breath. COMPARISON: 05/08/2017 FINDINGS: A PICC line via the right upper extremity is in place. The tip overlies the SVC at the SVC/right atr ial junction. There continue to be bilateral lung infiltrates. The cavitary portions of these infiltrates appear s maller, although the infiltrates persist bilaterally. IMPRESSION: 1. The tip of the peripherally inserted central catheter line is at the superior vena cava/right atr ial junction. 2. Bilateral lung infiltrates again noted. POS: AGW
[2017-05-17] MEDS: Pantoprazole 40 MG VIAL IVP SCH (20:56)
[2017-05-18] MEDS: traMADol HCl 50 MG TAB PO PRN (00:30)
[2017-05-18] MEDS: Diabetic Tussin 200 MG/10 ML UDCUP PO PRN (00:31)
[2017-05-18] MEDS: Ondansetron HCl/PF 4 MG/2 ML Vial IVP PRN ×2 (00:31→21:53)
[2017-05-18] MEDS: Vancomycin HCl 1.25 GM in Sodium Chloride 0.9% 250 ML 250 ML IVPB SCH ×2 (07:47→14:43)
[2017-05-18] MEDS: Enoxaparin Sodium 40 MG/0.4 ML SYRINGE SC SCH (07:47)
[2017-05-18] MEDS: Ferrous Sulfate 325 MG TAB PO SCH ×2 (07:47→16:22)
[2017-05-18] MEDS: Benzonatate 100 MG CAP PO SCH ×4 (07:47→21:53)
[2017-05-18] MEDS: guaiFENesin ER 600 MG TAB PO SCH ×2 (07:48→21:53)
[2017-05-18] MEDS: Linezolid 600 MG in Premix Bag 1 BAG IVPB SCH ×2 (10:50→21:53)
--- NOTE | 2017-05-18 11:55 | PDOC.PN ---
- Subjective Encounter Start Date: 05/18/17 Encounter Start Time: 09:20 Subjective: feels better, no sob or chest pain -: is amb in room -: is eating better - Objective MAR Reviewed: Yes Vital Signs & Weight: Vital Signs (12 hours) Temp Pulse Resp BP Pulse Ox 05/18/17 11:05 98.2 F 107 H 16 96/63 97 05/18/17 07:57 97.6 F 103 H 16 97 05/18/17 07:56 97.6 F 103 H 16 96/61 97 Weight Admit Weight 108 lb 14.4 oz Weight 1.651 oz Most Recent Monitor Data Heart Rate from ECG 80 NIBP 112/76 NIBP BP-Mean 84 Respiration from ECG 25 SpO2 100 Result Diagrams: 05/15/17 03:57 05/15/17 03:57 Phys Exam - Physical Examination HEENT: PERRLA, moist MMs Neck: no JVD, supple Respiratory: no wheezing, no rales Cardiovascular: RRR, no significant murmur Gastrointestinal: soft, non-tender, positive bowel sounds Musculoskeletal: no edema, pulses present Neurological: non-focal, moves all 4 limbs Psychiatric: normal affect, A&O x 3 Dx/Plan (1) MRSA pneumonia Code(s): J15.212 - PNEUMONIA DUE TO METHICILLIN RESISTANT STAPHYLOCOCCUS AUREUS Status: Acute Qualifiers: Laterality: bilateral (2) Sepsis Code(s): A41.9 - SEPSIS, UNSPECIFIED ORGANISM Status: Acute Qualifiers: Sepsis type: methicillin resistant Staphylococcus aureus Qualified Code(s) : A41.02 - Sepsis due to Methicillin resistant Staphylococcus aureus (3) Septic embolism Code(s): I26.90 - SEPTIC PULMONARY EMBOLISM WITHOUT ACUTE COR PULMONALE Status : Suspected Comment: with renal infarcts. - Plan on zyvox and vanc -: awaiting outpt antibiotics to be set -: her appetite is improving -: had new picc placed yesterday * . Review of Systems - Medications/Allergies Allergies/Adverse Reactions: Allergies Allergy/AdvReac Type Severity Reaction Status Date / Time No Known Drug Allergies Allergy Verified 04/23/17 23:42 Medications: Current Medications Acetaminophen (Tylenol) 650 mg PO Q4H PRN PRN Reason: Headache/Fever or Pain Last Admin: 05/16/17 14:51 Dose: 650 mg Benzonatate (Tessalon) 100 mg PO TID [facility] Last Admin: 05/18/17 07:47 Dose: 100 mg Enoxaparin Sodium (Lovenox) 40 mg SC 0900 [facility] Last Admin: 05/18/17 07:47 Dose: Not Given Ferrous Sulfate (Feosol) 325 mg PO BID-WM [facility] Last Admin: 05/18/17 07:47 Dose: 325 mg Guaifenesin (Mucinex) 600 mg PO Q12HR [facility] Last Admin: 05/18/17 07:48 Dose: 600 mg Guaifenesin (Robitussin Sf) 200 mg PO Q6H PRN PRN Reason: .COUGH Last Admin: 05/18/17 00:31 Dose: 200 mg Vancomycin HCl 1.25 gm/ Sodium (Chloride) 250 mls @ 166.667 mls/hr IVPB 0700, 1500,2300 [facility] Last Admin: 05/18/17 07:47 Dose: 250 mls Linezolid 600 mg/ Device 300 mls @ 150 mls/hr IVPB Q12HR [facility] Stop: 06/06/17 10:59 Last Admin: 05/18/17 10:50 Dose: 300 mls Ipratropium [place] (Atrovent) 2.5 ml NEB Q4H PRN PRN Reason: SOB Magnesium Hydroxide (Milk Of Magnesium) 30 ml PO DAILYPRN PRN PRN Reason: Constipation Last Admin: 04/27/17 03:44 Dose: 30 ml Miscellaneous Medication (Pharmacy To Dose) 1 each IVPB PRN PRN PRN Reason: GOAL TROUGH = 15-20 Ondansetron HCl (Zofran) 4 mg IVP Q6H PRN PRN Reason: Nausea/Vomiting Last Admin: 05/18/17 00:31 Dose: 4 mg Pantoprazole Sodium (Protonix) 40 mg IVP HS [facility] Last Admin: 05/17/17 20:56 Dose: 40 mg Sodium Chloride (Flush - Normal Saline) 10 ml IVF Q12HR [facility] Last Admin: 05/18/17 10:50 Dose: 10 ml Sodium Chloride (Flush - Normal Saline) 10 ml IVF PRN PRN PRN Reason: Saline Flush Last Admin: 05/12/17 23:44 Dose: 10 ml Tramadol HCl (Ultram) 50 mg PO Q6H PRN PRN Reason: Moderate Pain (4-6) Last Admin: 05/18/17 00:30 Dose: 50 mg Zolpidem Tartrate (Ambien) 5 mg PO HS PRN PRN Reason: Insomnia
[2017-05-18 12:20] VITALS: BMI 21.8
[2017-05-18] MEDS ORDERED: Mag-Al 1200 mg/1200 mg/30 ML UDCUP PO PRN (13:51)
[2017-05-18] MEDS: Pantoprazole 40 MG VIAL IVP SCH (21:53)
[2017-05-19] MEDS: Vancomycin HCl 1.25 GM in Sodium Chloride 0.9% 250 ML 250 ML IVPB SCH ×3 (00:14→14:33)
[2017-05-19] MEDS: Acetaminophen 325 MG TAB PO PRN ×2 (00:20→14:32)
[2017-05-19] MEDS: Benzonatate 100 MG CAP PO SCH ×3 (08:48→21:11)
[2017-05-19] MEDS: Ferrous Sulfate 325 MG TAB PO SCH (08:48)
[2017-05-19] MEDS: guaiFENesin ER 600 MG TAB PO SCH ×2 (08:48→21:11)
[2017-05-19] MEDS: Enoxaparin Sodium 40 MG/0.4 ML SYRINGE SC SCH (08:49)
[2017-05-19] MEDS: Linezolid 600 MG in Premix Bag 1 BAG IVPB SCH (08:49)
--- NOTE | 2017-05-19 12:24 | PDOC.PN ---
- Subjective Encounter Start Date: 05/19/17 Encounter Start Time: 10:00 Subjective: c/o chest pain on deep breaths, no palp - Objective MAR Reviewed: Yes Vital Signs & Weight: Vital Signs (12 hours) Temp Pulse Resp BP BP Pulse Ox 05/19/17 11:51 98.8 F 106 H 16 93/62 98 05/19/17 08:00 99.1 F 110 H 16 93/58 L 97 05/19/17 04:00 97.6 F 118 H 16 110/74 100 Weight Admit Weight 108 lb 14.4 oz Weight 111 lb 12.8 oz Most Recent Monitor Data Heart Rate from ECG 80 NIBP 112/76 NIBP BP-Mean 84 Respiration from ECG 25 SpO2 100 I&O: 05/18/17 05/19/17 05/20/17 06:59 06:59 06:59 Intake Total 1270 Balance 1270 Result Diagrams: 05/15/17 03:57 05/15/17 03:57 Phys Exam - Physical Examination HEENT: PERRLA, moist MMs Neck: no JVD, supple Respiratory: no wheezing, no rales Cardiovascular: RRR, no significant murmur Gastrointestinal: soft, non-tender, positive bowel sounds Musculoskeletal: no edema, pulses present Neurological: non-focal, moves all 4 limbs Psychiatric: A&O x 3 Dx/Plan (1) MRSA pneumonia Code(s): J15.212 - PNEUMONIA DUE TO METHICILLIN RESISTANT STAPHYLOCOCCUS AUREUS Status: Acute Qualifiers: Laterality: bilateral (2) Sepsis Code(s): A41.9 - SEPSIS, UNSPECIFIED ORGANISM Status: Acute Qualifiers: Sepsis type: methicillin resistant Staphylococcus aureus Qualified Code(s) : A41.02 - Sepsis due to Methicillin resistant Staphylococcus aureus (3) Septic embolism Code(s): I26.90 - SEPTIC PULMONARY EMBOLISM WITHOUT ACUTE COR PULMONALE Status : Suspected Comment: with renal infarcts. (4) Chronic anemia Code(s): D64.9 - ANEMIA, UNSPECIFIED Status: Chronic - Plan is on zyvox and vanc -: awaiting outpt antibiotic arrangement -: repeat echo in view of ongoing chest pains (pleuritic) -: cxr shows healing pna * . Review of Systems - Medications/Allergies Allergies/Adverse Reactions: Allergies Allergy/AdvReac Type Severity Reaction Status Date / Time No Known Drug Allergies Allergy Verified 04/23/17 23:42 Medications: Current Medications Acetaminophen (Tylenol) 650 mg PO Q4H PRN PRN Reason: Headache/Fever or Pain Last Admin: 05/19/17 00:20 Dose: 650 mg Al Hydroxide/Mg Hydroxide (Maalox) 30 ml PO Q6H PRN PRN Reason: Heartburn or Indigestion Last Admin: 05/18/17 14:47 Dose: 30 ml Benzonatate (Tessalon) 100 mg PO TID [facility] Last Admin: 05/19/17 08:48 Dose: 100 mg Enoxaparin Sodium (Lovenox) 40 mg SC 0900 [facility] Last Admin: 05/19/17 08:49 Dose: Not Given Ferrous Sulfate (Feosol) 325 mg PO QAM-[facility] Last Admin: 05/19/17 08:48 Dose: 325 mg Guaifenesin (Mucinex) 600 mg PO Q12HR [facility] Last Admin: 05/19/17 08:48 Dose: 600 mg Guaifenesin (Robitussin Sf) 200 mg PO Q6H PRN PRN Reason: .COUGH Last Admin: 05/18/17 00:31 Dose: 200 mg Vancomycin HCl 1.25 gm/ Sodium (Chloride) 250 mls @ 166.667 mls/hr IVPB 0700, 1500,2300 [facility] Last Admin: 05/19/17 06:39 Dose: 250 mls Linezolid 600 mg/ Device 300 mls @ 150 mls/hr IVPB Q12HR [facility] Stop: 06/06/17 10:59 Last Admin: 05/19/17 08:49 Dose: 300 mls Ipratropium [place] (Atrovent) 2.5 ml NEB Q4H PRN PRN Reason: SOB Magnesium Hydroxide (Milk Of Magnesium) 30 ml PO DAILYPRN PRN PRN Reason: Constipation Last Admin: 04/27/17 03:44 Dose: 30 ml Miscellaneous Medication (Pharmacy To Dose) 1 each IVPB PRN PRN PRN Reason: GOAL TROUGH = 15-20 Ondansetron HCl (Zofran) 4 mg IVP Q6H PRN PRN Reason: Nausea/Vomiting Last Admin: 05/18/17 21:53 Dose: 4 mg Pantoprazole Sodium (Protonix) 40 mg PO DAILY [facility] Last Admin: 05/19/17 08:48 Dose: 40 mg Sodium Chloride (Flush - Normal Saline) 10 ml IVF Q12HR [facility] Last Admin: 05/19/17 08:49 Dose: Not Given Sodium Chloride (Flush - Normal Saline) 10 ml IVF PRN PRN PRN Reason: Saline Flush Last Admin: 05/12/17 23:44 Dose: 10 ml Tramadol HCl (Ultram) 50 mg PO Q6H PRN PRN Reason: Moderate Pain (4-6) Last Admin: 05/18/17 00:30 Dose: 50 mg Zolpidem Tartrate (Ambien) 5 mg PO HS PRN PRN Reason: Insomnia
[2017-05-19] MEDS: Ondansetron HCl/PF 4 MG/2 ML Vial IVP PRN (15:53)
--- NOTE | 2017-05-19 20:09 | PRG ---
DATE OF SERVICE: 05/19/2017 SUBJECTIVE: The patient apparently is eating very well at night. She says she sleeps during the day time and stays awake during the nighttime. The patient has less cough. No dyspnea, no chest pain, n o abdominal pain or diarrhea. PHYSICAL EXAMINATION: VITAL SIGNS: T-max 99.1, blood pressure 109/70, pulse 114, respiratory rate 16, O2 sat 100%. GENERAL: No distress. LUNGS: With better aeration. HEART: S1, S2. ABDOMEN: Soft, not distended. EXTREMITIES: Moves extremities equally. LABORATORY DATA: Labs showed white cell count 4.3, hemoglobin 8.7, and platelets 258. Differential has finally normalized and the chemistry with a creatinine 0.61. Vancomycin trough is 20. No new dc crobiology information. 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 The patient has developed worsening neutrophil, decrease in anemia and we will go ahead and disc ontinue Zyvox, switch her to vancomycin, preparation for discharge. End date of therapy at least unt me 06/06/2017 approximately. The followup chest x-ray from 2 days ago showed the tip of peripherally inserted catheter and bilateral pulmonary infiltrates noted again.
[2017-05-20] MEDS: Ondansetron HCl/PF 4 MG/2 ML Vial IVP PRN ×2 (00:02→20:52)
[2017-05-20] MEDS: Vancomycin HCl 1.75 GM in Sodium Chloride 0.9% 500 ML IVPB SCH ×2 (03:28→15:02)
[2017-05-20] MEDS: guaiFENesin ER 600 MG TAB PO SCH ×2 (08:14→20:26)
[2017-05-20] MEDS: Benzonatate 100 MG CAP PO SCH ×3 (08:14→20:26)
[2017-05-20] MEDS: Ferrous Sulfate 325 MG TAB PO SCH (08:14)
[2017-05-20] MEDS: Enoxaparin Sodium 40 MG/0.4 ML SYRINGE SC SCH (08:14)
--- NOTE | 2017-05-20 13:48 | PDOC.PN ---
- Subjective Encounter Start Date: 05/20/17 Encounter Start Time: 08:20 Subjective: no new complaints -: cough is better, no current chest pain - Objective MAR Reviewed: Yes Vital Signs & Weight: Vital Signs (12 hours) Temp Pulse Resp BP Pulse Ox 05/20/17 08:00 98.3 F 112 H 14 94/61 99 Weight Admit Weight 108 lb 14.4 oz Weight 111 lb 12.8 oz Most Recent Monitor Data Heart Rate from ECG 80 NIBP 112/76 NIBP BP-Mean 84 Respiration from ECG 25 SpO2 100 I&O: 05/19/17 05/20/17 05/21/17 06:59 06:59 06:59 Intake Total 1270 2440 Balance 1270 2440 Result Diagrams: 05/15/17 03:57 05/15/17 03:57 Phys Exam - Physical Examination HEENT: PERRLA, moist MMs Neck: no JVD, supple Respiratory: no wheezing, no rales Cardiovascular: RRR, no significant murmur Gastrointestinal: soft, non-tender, positive bowel sounds Musculoskeletal: no edema, pulses present Neurological: non-focal, moves all 4 limbs Dx/Plan (1) MRSA pneumonia Code(s): J15.212 - PNEUMONIA DUE TO METHICILLIN RESISTANT STAPHYLOCOCCUS AUREUS Status: Acute Qualifiers: Laterality: bilateral (2) Sepsis Code(s): A41.9 - SEPSIS, UNSPECIFIED ORGANISM Status: Resolved Qualifiers: Sepsis type: methicillin resistant Staphylococcus aureus Qualified Code(s) : A41.02 - Sepsis due to Methicillin resistant Staphylococcus aureus (3) Septic embolism Code(s): I26.90 - SEPTIC PULMONARY EMBOLISM WITHOUT ACUTE COR PULMONALE Status : Suspected Comment: with renal infarcts. (4) Chronic anemia Code(s): D64.9 - ANEMIA, UNSPECIFIED Status: Chronic - Plan hemostable -: repeat echo results are pending -: is off zyvox now, on vanc q12h -: is trying to arrange outpt antibiotics -: may dc if above are arranged * . Review of Systems - Medications/Allergies Allergies/Adverse Reactions: Allergies Allergy/AdvReac Type Severity Reaction Status Date / Time No Known Drug Allergies Allergy Verified 04/23/17 23:42 Medications: Current Medications Acetaminophen (Tylenol) 650 mg PO Q4H PRN PRN Reason: Headache/Fever or Pain Last Admin: 05/19/17 14:32 Dose: 650 mg Al Hydroxide/Mg Hydroxide (Maalox) 30 ml PO Q6H PRN PRN Reason: Heartburn or Indigestion Last Admin: 05/18/17 14:47 Dose: 30 ml Benzonatate (Tessalon) 100 mg PO TID [facility] Last Admin: 05/20/17 08:14 Dose: 100 mg Enoxaparin Sodium (Lovenox) 40 mg SC 0900 [facility] Last Admin: 05/20/17 08:14 Dose: Not Given Ferrous Sulfate (Feosol) 325 mg PO QAM-WM [facility] Last Admin: 05/20/17 08:14 Dose: 325 mg Guaifenesin (Mucinex) 600 mg PO Q12HR [facility] Last Admin: 05/20/17 08:14 Dose: 600 mg Guaifenesin (Robitussin Sf) 200 mg PO Q6H PRN PRN Reason: .COUGH Last Admin: 05/18/17 00:31 Dose: 200 mg Vancomycin HCl 1.75 gm/ Sodium (Chloride) 500 mls @ 250 mls/hr IVPB 0300,1500 [facility] Last Admin: 05/20/17 03:28 Dose: 500 mls Ipratropium [place] (Atrovent) 2.5 ml NEB Q4H PRN PRN Reason: SOB Magnesium Hydroxide (Milk Of Magnesium) 30 ml PO DAILYPRN PRN PRN Reason: Constipation Last Admin: 04/27/17 03:44 Dose: 30 ml Miscellaneous Medication (Pharmacy To Dose) 1 each IVPB PRN PRN PRN Reason: GOAL TROUGH = 15-20 Ondansetron HCl (Zofran) 4 mg IVP Q6H PRN PRN Reason: Nausea/Vomiting Last Admin: 05/20/17 00:02 Dose: 4 mg Pantoprazole Sodium (Protonix) 40 mg PO DAILY [facility] Last Admin: 05/20/17 08:14 Dose: 40 mg Sodium Chloride (Flush - Normal Saline) 10 ml IVF Q12HR [facility] Last Admin: 05/20/17 08:16 Dose: Not Given Sodium Chloride (Flush - Normal Saline) 10 ml IVF PRN PRN PRN Reason: Saline Flush Last Admin: 05/12/17 23:44 Dose: 10 ml Tramadol HCl (Ultram) 50 mg PO Q6H PRN PRN Reason: Moderate Pain (4-6) Last Admin: 05/18/17 00:30 Dose: 50 mg Zolpidem Tartrate (Ambien) 5 mg PO HS PRN PRN Reason: Insomnia
[2017-05-21] MEDS: Vancomycin HCl 1.75 GM in Sodium Chloride 0.9% 500 ML IVPB SCH ×2 (02:49→14:56)
[2017-05-21] MEDS: Benzonatate 100 MG CAP PO SCH ×3 (08:27→19:43)
[2017-05-21] MEDS: Ferrous Sulfate 325 MG TAB PO SCH (08:28)
[2017-05-21] MEDS: guaiFENesin ER 600 MG TAB PO SCH ×2 (08:28→19:43)
--- NOTE | 2017-05-21 12:56 | PDOC.PN ---
- Subjective Encounter Start Date: 05/21/17 Encounter Start Time: 13:02 Subjective: No new complaints. -: No acute events overnight.\ - Objective MAR Reviewed: Yes Vital Signs & Weight: Vital Signs (12 hours) Temp Pulse Resp BP Pulse Ox 05/21/17 08:00 98.6 F 96 16 98 05/21/17 07:34 98.6 F 96 16 99/63 98 Weight Admit Weight 108 lb 14.4 oz Weight 111 lb 12.8 oz Most Recent Monitor Data Heart Rate from ECG 80 NIBP 112/76 NIBP BP-Mean 84 Respiration from ECG 25 SpO2 100 I&O: 05/20/17 05/21/17 05/22/17 06:59 06:59 06:59 Intake Total 2440 2560 Balance 2440 2560 Result Diagrams: 05/15/17 03:57 05/15/17 03:57 Phys Exam - Physical Examination Constitutional: NAD HEENT: PERRLA, moist MMs, sclera anicteric, oral pharynx no lesions Neck: no JVD, supple, full ROM Respiratory: no wheezing, no rales, no rhonchi, clear to auscultation bilateral Cardiovascular: RRR, no significant murmur, no rub Gastrointestinal: soft, non-tender, no distention, positive bowel sounds Musculoskeletal: no edema, pulses present Neurological: non-focal, moves all 4 limbs Psychiatric: normal affect, A&O x 3 Skin: no rash, normal turgor Dx/Plan (1) MRSA pneumonia Code(s): J15.212 - PNEUMONIA DUE TO METHICILLIN RESISTANT STAPHYLOCOCCUS AUREUS Status: Acute Qualifiers: Laterality: bilateral Comment: Repeat ECH w EF 50-55%. Continue IV Vancomycin (end date: 06/06). (2) Sinus tachycardia Code(s): R00.0 - TACHYCARDIA, UNSPECIFIED Status: Acute Comment: Continue to monitor. PE ruled out twice, normal TSH. (3) Septic embolism Code(s): I26.90 - SEPTIC PULMONARY EMBOLISM WITHOUT ACUTE COR PULMONALE Status : Suspected Comment: with renal infarcts. (4) Macrocytic anemia Code(s): D53.9 - NUTRITIONAL ANEMIA, UNSPECIFIED Status: Chronic Comment: 2/ 2 anemia of chronic inflammation. 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 * . Review of Systems - Medications/Allergies Allergies/Adverse Reactions: Allergies Allergy/AdvReac Type Severity Reaction Status Date / Time No Known Drug Allergies Allergy Verified 04/23/17 23:42 Medications: Current Medications Acetaminophen (Tylenol) 650 mg PO Q4H PRN PRN Reason: Headache/Fever or Pain Last Admin: 05/19/17 14:32 Dose: 650 mg Al Hydroxide/Mg Hydroxide (Maalox) 30 ml PO Q6H PRN PRN Reason: Heartburn or Indigestion Last Admin: 05/18/17 14:47 Dose: 30 ml Benzonatate (Tessalon) 100 mg PO TID [facility] Last Admin: 05/21/17 08:27 Dose: 100 mg Enoxaparin Sodium (Lovenox) 40 mg SC 0900 [facility] Last Admin: 05/20/17 08:14 Dose: Not Given Ferrous Sulfate (Feosol) 325 mg PO QAM-WM [facility] Last Admin: 05/21/17 08:28 Dose: 325 mg Guaifenesin (Mucinex) 600 mg PO Q12HR [facility] Last Admin: 05/21/17 08:28 Dose: 600 mg Guaifenesin (Robitussin Sf) 200 mg PO Q6H PRN PRN Reason: .COUGH Last Admin: 05/18/17 00:31 Dose: 200 mg Vancomycin HCl 1.75 gm/ Sodium (Chloride) 500 mls @ 250 mls/hr IVPB 0300,1500 [facility] Last Admin: 05/21/17 02:49 Dose: 500 mls Ipratropium [place] (Atrovent) 2.5 ml NEB Q4H PRN PRN Reason: SOB Magnesium Hydroxide (Milk Of Magnesium) 30 ml PO DAILYPRN PRN PRN Reason: Constipation Last Admin: 04/27/17 03:44 Dose: 30 ml Miscellaneous Medication (Pharmacy To Dose) 1 each IVPB PRN PRN PRN Reason: GOAL TROUGH = 15-20 Ondansetron HCl (Zofran) 4 mg IVP Q6H PRN PRN Reason: Nausea/Vomiting Last Admin: 05/20/17 20:52 Dose: 4 mg Pantoprazole Sodium (Protonix) 40 mg PO DAILY [facility] Last Admin: 05/21/17 08:28 Dose: 40 mg Sodium Chloride (Flush - Normal Saline) 10 ml IVF Q12HR [facility] Last Admin: 05/21/17 08:31 Dose: Not Given Sodium Chloride (Flush - Normal Saline) 10 ml IVF PRN PRN PRN Reason: Saline Flush Last Admin: 05/12/17 23:44 Dose: 10 ml Tramadol HCl (Ultram) 50 mg PO Q6H PRN PRN Reason: Moderate Pain (4-6) Last Admin: 05/18/17 00:30 Dose: 50 mg Zolpidem Tartrate (Ambien) 5 mg PO HS PRN PRN Reason: Insomnia
[2017-05-21] MEDS: Enoxaparin Sodium 40 MG/0.4 ML SYRINGE SC SCH (14:51)
[2017-05-21] MEDS ORDERED: Ondansetron ODT 4 MG TAB PO PRN (19:01)
[2017-05-21] MEDS: Diabetic Tussin 200 MG/10 ML UDCUP PO PRN (22:01)
[2017-05-22] MEDS: Vancomycin HCl 1.75 GM in Sodium Chloride 0.9% 500 ML IVPB SCH ×2 (02:32→15:17)
[2017-05-22 04:19] LABS: Mean Corpuscular HGB CONC 35.1 g/dL (32.0-36.0); Mean Corpuscular Hemoglobin 31.4 pg (25.0-35.0); Mean Corpuscular Volume 89.5 fl (77.0-87.0); Mean Platelet Volume 5.2 fL (7.4-10.4); Platelet Count 304 thou/uL (130-400); RBC Distribution Width 17.2 % (11.5-14.5); Red Blood Cell (RBC) Count 2.54 mill/uL (4.00-5.20)
[2017-05-22 04:31] LABS: Anion Gap 12 mmol/L (10-20); BUN (Urea Nitrogen) 10 mg/dL (7.0-18.7); Calc. Creatinine Clearance 122 mL/min (70-130); Calcium 9.3 mg/dL (7.8-10.44); Carbon Dioxide 25 mmol/L (22-29); Chloride 106 mmol/L (98-107); Estimated GFR-MDRD Greater than 90; Glucose 88 mg/dL (70-105); Potassium 3.7 mmol/L (3.5-5.1); Sodium 139 mmol/L (136-145)
[2017-05-22] MEDS: Ferrous Sulfate 325 MG TAB PO SCH (08:40)
[2017-05-22] MEDS: guaiFENesin ER 600 MG TAB PO SCH ×2 (08:40→19:40)
[2017-05-22] MEDS: Benzonatate 100 MG CAP PO SCH ×3 (08:43→19:40)
[2017-05-22] MEDS: Enoxaparin Sodium 40 MG/0.4 ML SYRINGE SC SCH (08:43)
--- NOTE | 2017-05-22 11:25 | PDOC.PN ---
- Subjective Encounter Start Date: 05/22/17 Encounter Start Time: 11:25 Subjective: No complaints today -: No acute events overnight. - Objective Vital Signs & Weight: Vital Signs (12 hours) Temp Pulse Resp BP Pulse Ox 05/22/17 08:00 98.9 F 90 16 98 05/22/17 07:31 98.9 F 90 16 94/60 98 Weight Admit Weight 108 lb 14.4 oz Weight 111 lb 12.8 oz Most Recent Monitor Data Heart Rate from ECG 80 NIBP 112/76 NIBP BP-Mean 84 Respiration from ECG 25 SpO2 100 I&O: 05/21/17 05/22/17 05/23/17 06:59 06:59 06:59 Intake Total 2560 2500 Balance 2560 2500 Result Diagrams: 05/22/17 03:37 05/22/17 03:37 Phys Exam - Physical Examination Constitutional: NAD HEENT: PERRLA, moist MMs, sclera anicteric, oral pharynx no lesions Neck: no JVD, supple, full ROM Respiratory: no wheezing, no rales, no rhonchi, clear to auscultation bilateral Cardiovascular: RRR, no significant murmur, no rub Gastrointestinal: soft, non-tender, no distention, positive bowel sounds Musculoskeletal: no edema, pulses present Neurological: non-focal, moves all 4 limbs Psychiatric: normal affect, A&O x 3 Skin: no rash, normal turgor Dx/Plan (1) MRSA pneumonia Code(s): J15.212 - PNEUMONIA DUE TO METHICILLIN RESISTANT STAPHYLOCOCCUS AUREUS Status: Acute Qualifiers: Laterality: bilateral Comment: Stable. Saturating well on room air. Repeat ECH0- EF 50-55%. Continue IV Vancomycin (end date: 06/06). (2) Sinus tachycardia Code(s): R00.0 - TACHYCARDIA, UNSPECIFIED Status: Chronic Comment: Continue to monitor. PE ruled out twice, normal TSH. (3) Septic embolism Code(s): I26.90 - SEPTIC PULMONARY EMBOLISM WITHOUT ACUTE COR PULMONALE Status : Suspected Comment: with renal infarcts. (4) Macrocytic anemia Code(s): D53.9 - NUTRITIONAL ANEMIA, UNSPECIFIED Status: Chronic Comment: 2/ 2 anemia of chronic inflammation. (5) Sepsis due to methicillin resistant Staphylococcus aureus Code(s): A41.02 - SEPSIS DUE TO METHICILLIN RESISTANT STAPHYLOCOCCUS AUREUS Status: Resolved (6) Lupus (systemic lupus erythematosus) Code(s): M32.9 - SYSTEMIC LUPUS ERYTHEMATOSUS, UNSPECIFIED Status: Acute Qualifiers: Systemic lupus erythematosus type: unspecified - Plan cont current plan of care, plan discussed w/ family, continue antibiotics, out of bed/ambulate, DVT proph w/lovenox * . Review of Systems - Medications/Allergies Allergies/Adverse Reactions: Allergies Allergy/AdvReac Type Severity Reaction Status Date / Time No Known Drug Allergies Allergy Verified 04/23/17 23:42 Medications: Current Medications Acetaminophen (Tylenol) 650 mg PO Q4H PRN PRN Reason: Headache/Fever or Pain Last Admin: 05/19/17 14:32 Dose: 650 mg Al Hydroxide/Mg Hydroxide (Maalox) 30 ml PO Q6H PRN PRN Reason: Heartburn or Indigestion Last Admin: 05/18/17 14:47 Dose: 30 ml Benzonatate (Tessalon) 100 mg PO TID [facility] Last Admin: 05/22/17 08:43 Dose: Not Given Enoxaparin Sodium (Lovenox) 40 mg SC 0900 [facility] Last Admin: 05/22/17 08:43 Dose: Not Given Ferrous Sulfate (Feosol) 325 mg PO QAM-WM [facility] Last Admin: 05/22/17 08:40 Dose: 325 mg Guaifenesin (Mucinex) 600 mg PO Q12HR [facility] Last Admin: 05/22/17 08:40 Dose: 600 mg Guaifenesin (Robitussin Sf) 200 mg PO Q6H PRN PRN Reason: .COUGH Last Admin: 05/21/17 22:01 Dose: 200 mg Vancomycin HCl 1.75 gm/ Sodium (Chloride) 500 mls @ 250 mls/hr IVPB 0300,1500 [facility] Last Admin: 05/22/17 02:32 Dose: 500 mls Ipratropium [place] (Atrovent) 2.5 ml NEB Q4H PRN PRN Reason: SOB Magnesium Hydroxide (Milk Of Magnesium) 30 ml PO DAILYPRN PRN PRN Reason: Constipation Last Admin: 04/27/17 03:44 Dose: 30 ml Miscellaneous Medication (Pharmacy To Dose) 1 each IVPB PRN PRN PRN Reason: GOAL TROUGH = 15-20 Ondansetron HCl (Zofran Odt) 4 mg PO Q6H PRN PRN Reason: Nausea/Vomiting Pantoprazole Sodium (Protonix) 40 mg PO DAILY [facility] Last Admin: 05/22/17 08:40 Dose: 40 mg Sodium Chloride (Flush - Normal Saline) 10 ml IVF Q12HR [facility] Last Admin: 05/22/17 08:40 Dose: Not Given Sodium Chloride (Flush - Normal Saline) 10 ml IVF PRN PRN PRN Reason: Saline Flush Last Admin: 05/12/17 23:44 Dose: 10 ml Tramadol HCl (Ultram) 50 mg PO Q6H PRN PRN Reason: Moderate Pain (4-6) Last Admin: 05/18/17 00:30 Dose: 50 mg Zolpidem Tartrate (Ambien) 5 mg PO HS PRN PRN Reason: Insomnia
[2017-05-23] MEDS: Vancomycin HCl 1.75 GM in Sodium Chloride 0.9% 500 ML IVPB SCH ×2 (02:23→16:06)
[2017-05-23] MEDS: Benzonatate 100 MG CAP PO SCH ×3 (08:47→19:29)
[2017-05-23] MEDS: Enoxaparin Sodium 40 MG/0.4 ML SYRINGE SC SCH (08:48)
[2017-05-23] MEDS: guaiFENesin ER 600 MG TAB PO SCH ×2 (08:48→19:28)
[2017-05-23] MEDS: Ferrous Sulfate 325 MG TAB PO SCH (08:49)
--- NOTE | 2017-05-23 11:01 | PDOC.PN ---
- Subjective Encounter Start Date: 05/23/17 Encounter Start Time: 09:20 -: old records requested/rev Pt seen and examined, chart reviewed in its entirety, this is my first visit with this patient. Pt acts very distrustful. denies f/c, no N/V/d/c. + dry cough discussed plan with pt to go to a SNF if/when arrange.d tolerating Vac, occasionally feeling light headed 10 point ROS performed and neg for all systems except as per HPI - Objective MAR Reviewed: Yes Vital Signs & Weight: Vital Signs (12 hours) Temp Pulse Resp BP Pulse Ox 05/23/17 08:00 98.8 F 99 12 98 05/23/17 07:12 98.8 F 99 12 96/60 98 Weight Admit Weight 108 lb 14.4 oz Weight 111 lb 12.8 oz Most Recent Monitor Data Heart Rate from ECG 80 NIBP 112/76 NIBP BP-Mean 84 Respiration from ECG 25 SpO2 100 I&O: 05/22/17 05/23/17 05/24/17 06:59 06:59 06:59 Intake Total 2500 1590 Balance 2500 1590 Result Diagrams: 05/22/17 03:37 05/22/17 03:37 Radiology Reviewed by me: Yes EKG Reviewed by me: Yes Phys Exam - Physical Examination Constitutional: NAD HEENT: PERRLA, moist MMs, sclera anicteric, oral pharynx no lesions Neck: no nodes, no JVD, supple, full ROM Respiratory: no wheezing, no rhonchi, clear to auscultation bilateral + bibasilar rales Cardiovascular: RRR, no significant murmur, no rub Gastrointestinal: soft, non-tender, no distention, positive bowel sounds Musculoskeletal: no edema, pulses present Neurological: non-focal, normal sensation, moves all 4 limbs Lymphatic: no nodes Psychiatric: normal affect, A&O x 3 Skin: no rash, normal turgor, cap refill <2 seconds Dx/Plan (1) Endocarditis Code(s): I38 - ENDOCARDITIS, VALVE UNSPECIFIED Status: Acute Qualifiers: Endocarditis type: infective Infective endocarditis organism: bacterial Chronicity: acute Qualified Code(s): I33.0 - Acute and subacute infective endocarditis Comment: MRSA. Major bacteriolgic, +emboli, +valvular predispotion, +fever. meets criteria. Vanc until 06/06 to complete Rx, will need TTE then (2) Lupus (systemic lupus erythematosus) Code(s): M32.9 - SYSTEMIC LUPUS ERYTHEMATOSUS, UNSPECIFIED Status: Chronic Qualifiers: Systemic lupus erythematosus type: unspecified Systemic lupus erythematosus organ involvement: unspecified Qualified Code(s): M32.9 - Systemic lupus erythematosus, unspecified (3) MRSA pneumonia Code(s): J15.212 - PNEUMONIA DUE TO METHICILLIN RESISTANT STAPHYLOCOCCUS AUREUS Status: Acute Qualifiers: Laterality: bilateral Comment: Stable. Saturating well on room air. Repeat ECH0- EF 50-55%. Continue IV Vancomycin (end date: 06/06). (4) Parapneumonic effusion Code(s): J18.9 - PNEUMONIA, UNSPECIFIED ORGANISM; J91.8 - PLEURAL EFFUSION IN OTHER CONDITIONS CLASSIFIED ELSEWHERE Status: Acute Comment: As above. (5) Renal infarct Code(s): N28.0 - ISCHEMIA AND INFARCTION OF KIDNEY Status: Acute (6) Chronic anemia Code(s): D64.9 - ANEMIA, UNSPECIFIED Status: Chronic (7) Septic embolism Code(s): I26.90 - SEPTIC PULMONARY EMBOLISM WITHOUT ACUTE COR PULMONALE Status : Suspected Comment: with renal infarcts. (8) Blurry vision, left eye Code(s): H53.8 - OTHER VISUAL DISTURBANCES Status: Resolved Comment: Visual acuity normal on bedside exam (9) Hematemesis Code(s): K92.0 - HEMATEMESIS Status: Resolved Comment: No recurrence, hemoglobin stable - Plan * .
[2017-05-23 15:05] LABS: Vancomycin, Trough 14.2 ug/mL
[2017-05-24] MEDS: Ferrous Sulfate 325 MG TAB PO SCH (08:23)
[2017-05-24] MEDS: guaiFENesin ER 600 MG TAB PO SCH ×2 (08:24→20:34)
[2017-05-24] MEDS: Benzonatate 100 MG CAP PO SCH ×3 (08:24→20:33)
[2017-05-24] MEDS: Enoxaparin Sodium 40 MG/0.4 ML SYRINGE SC SCH (08:24)
--- NOTE | 2017-05-24 12:15 | PDOC.PN ---
- Subjective Encounter Start Date: 05/24/17 Encounter Start Time: 10:10 Pt is sitting up in bed, looks much better today. No F/c, no N/V/d/C, less cough, no CP or SOB at [facility]. Discussed case with case management. There are 2 facilities: [facility] in [place] and [facility] here looking at taking the patient to complete IV Vanc, but pt would have to stay 30+ days. If not accepted there, will likely have to remain here to complete. No other ocmplaints or needs 10 point ROs performed and neg for all systems except as per HPI above - Objective MAR Reviewed: Yes Vital Signs & Weight: Vital Signs (12 hours) Temp Pulse Resp BP Pulse Ox 05/24/17 08:24 97.9 F 93 16 100 05/24/17 08:00 97.9 F 93 16 114/72 100 Weight Admit Weight 108 lb 14.4 oz Weight 111 lb 12.8 oz Most Recent Monitor Data Heart Rate from ECG 80 NIBP 112/76 NIBP BP-Mean 84 Respiration from ECG 25 SpO2 100 I&O: 05/23/17 05/24/17 05/25/17 06:59 06:59 06:59 Intake Total 1590 1500 Balance 1590 1500 Result Diagrams: 05/22/17 03:37 05/22/17 03:37 Phys Exam - Physical Examination Constitutional: NAD HEENT: PERRLA, moist MMs, sclera anicteric, oral pharynx no lesions Neck: no nodes, no JVD, supple, full ROM Respiratory: no wheezing, no rales, no rhonchi, clear to auscultation bilateral Cardiovascular: RRR, no significant murmur, no rub Gastrointestinal: soft, non-tender, no distention, positive bowel sounds Musculoskeletal: no edema, pulses present Neurological: non-focal, normal sensation, moves all 4 limbs Lymphatic: no nodes Psychiatric: normal affect, A&O x 3 Skin: no rash, normal turgor, cap refill <2 seconds Deviation from normal: RUE PICC C/D/I, no erythema or fluctuance Dx/Plan (1) Endocarditis Code(s): I38 - ENDOCARDITIS, VALVE UNSPECIFIED Status: Acute Qualifiers: Endocarditis type: infective Infective endocarditis organism: bacterial Chronicity: acute Qualified Code(s): I33.0 - Acute and subacute infective endocarditis Comment: MRSA. Major bacteriolgic, +emboli, +valvular predispotion, +fever. meets criteria. Vanc until 06/06 to complete Rx, will need TTE then (2) Lupus (systemic lupus erythematosus) Code(s): M32.9 - SYSTEMIC LUPUS ERYTHEMATOSUS, UNSPECIFIED Status: Chronic Qualifiers: Systemic lupus erythematosus type: unspecified Systemic lupus erythematosus organ involvement: unspecified Qualified Code(s): M32.9 - Systemic lupus erythematosus, unspecified (3) MRSA pneumonia Code(s): J15.212 - PNEUMONIA DUE TO METHICILLIN RESISTANT STAPHYLOCOCCUS AUREUS Status: Acute Qualifiers: Laterality: bilateral Comment: Stable. Saturating well on room air. Repeat ECH0- EF 50-55%. Continue IV Vancomycin (end date: 06/06). (4) Parapneumonic effusion Code(s): J18.9 - PNEUMONIA, UNSPECIFIED ORGANISM; J91.8 - PLEURAL EFFUSION IN OTHER CONDITIONS CLASSIFIED ELSEWHERE Status: Acute Comment: As above. (5) Renal infarct Code(s): N28.0 - ISCHEMIA AND INFARCTION OF KIDNEY Status: Acute (6) Chronic anemia Code(s): D64.9 - ANEMIA, UNSPECIFIED Status: Chronic (7) Septic embolism Code(s): I26.90 - SEPTIC PULMONARY EMBOLISM WITHOUT ACUTE COR PULMONALE Status : Suspected Comment: with renal infarcts. (8) Blurry vision, left eye Code(s): H53.8 - OTHER VISUAL DISTURBANCES Status: Resolved Comment: Visual acuity normal on bedside exam (9) Hematemesis Code(s): K92.0 - HEMATEMESIS Status: Resolved Comment: No recurrence, hemoglobin stable - Plan * .
[2017-05-25 04:03] LABS: Hemoglobin 9.5 g/dL (12.0-16.0); Mean Corpuscular HGB CONC 33.4 g/dL (32.0-36.0); Mean Corpuscular Hemoglobin 30.3 pg (25.0-35.0); Mean Corpuscular Volume 90.9 fl (77.0-87.0); Mean Platelet Volume 5.7 fL (7.4-10.4); Platelet Count 327 thou/uL (130-400); RBC Distribution Width 18.4 % (11.5-14.5); Red Blood Cell (RBC) Count 3.15 mill/uL (4.00-5.20)
[2017-05-25 04:10] LABS: Vancomycin, Trough 18.5 ug/mL
[2017-05-25 04:12] LABS: Anion Gap 9 mmol/L (10-20); BUN (Urea Nitrogen) 15 mg/dL (7.0-18.7); Calc. Creatinine Clearance 128 mL/min (70-130); Carbon Dioxide 28 mmol/L (22-29); Chloride 105 mmol/L (98-107); Estimated GFR-MDRD Greater than 90; Glucose 84 mg/dL (70-105); Potassium 4.2 mmol/L (3.5-5.1); Sodium 138 mmol/L (136-145)
[2017-05-25] MEDS: Ferrous Sulfate 325 MG TAB PO SCH (07:47)
[2017-05-25] MEDS: Benzonatate 100 MG CAP PO SCH ×3 (07:47→19:59)
[2017-05-25] MEDS: Enoxaparin Sodium 40 MG/0.4 ML SYRINGE SC SCH (07:47)
[2017-05-25] MEDS: guaiFENesin ER 600 MG TAB PO SCH ×2 (07:47→20:02)
--- NOTE | 2017-05-25 12:12 | PDOC.PN ---
- Subjective Encounter Start Date: 05/25/17 Encounter Start Time: 10:35 No new compalints., no acute events. denies f/c, no N/V/D/c, no CP or sOB at present. discussed with Case management. sent referral to two more facilities in [facility]. 10 point ROS performed and neg for all systems except as per HPI - Objective MAR Reviewed: Yes Vital Signs & Weight: Vital Signs (12 hours) Temp Pulse Resp BP Pulse Ox 05/25/17 08:00 98.4 F 92 16 05/25/17 07:39 98.4 F 92 16 93/59 L 97 Weight Admit Weight 108 lb 14.4 oz Weight 111 lb 12.8 oz Most Recent Monitor Data Heart Rate from ECG 80 NIBP 112/76 NIBP BP-Mean 84 Respiration from ECG 25 SpO2 100 I&O: 05/24/17 05/25/17 05/26/17 06:59 06:59 06:59 Intake Total 1500 2200 Balance 1500 2200 Result Diagrams: 05/25/17 03:18 05/25/17 03:18 Phys Exam - Physical Examination Constitutional: NAD HEENT: PERRLA, moist MMs, sclera anicteric, oral pharynx no lesions Neck: no nodes, no JVD, supple, full ROM Respiratory: no wheezing, no rales, no rhonchi, clear to auscultation bilateral Cardiovascular: RRR, no significant murmur, no rub Gastrointestinal: soft, non-tender, no distention, positive bowel sounds Musculoskeletal: no edema, pulses present Neurological: non-focal, normal sensation, moves all 4 limbs Lymphatic: no nodes Psychiatric: normal affect, A&O x 3 Skin: no rash, normal turgor, cap refill <2 seconds Deviation from normal: RUE PICC C/D/I, less tender Dx/Plan (1) Endocarditis Code(s): I38 - ENDOCARDITIS, VALVE UNSPECIFIED Status: Acute Qualifiers: Endocarditis type: infective Infective endocarditis organism: bacterial Chronicity: acute Qualified Code(s): I33.0 - Acute and subacute infective endocarditis Comment: MRSA. Major bacteriolgic, +emboli, +valvular predispotion, +fever. meets criteria. Vanc until 06/06 to complete Rx, will need TTE then (2) Lupus (systemic lupus erythematosus) Code(s): M32.9 - SYSTEMIC LUPUS ERYTHEMATOSUS, UNSPECIFIED Status: Chronic Qualifiers: Systemic lupus erythematosus type: unspecified Systemic lupus erythematosus organ involvement: unspecified Qualified Code(s): M32.9 - Systemic lupus erythematosus, unspecified (3) MRSA pneumonia Code(s): J15.212 - PNEUMONIA DUE TO METHICILLIN RESISTANT STAPHYLOCOCCUS AUREUS Status: Acute Qualifiers: Laterality: bilateral Comment: Stable. Saturating well on room air. Repeat ECH0- EF 50-55%. Continue IV Vancomycin (end date: 06/06). (4) Parapneumonic effusion Code(s): J18.9 - PNEUMONIA, UNSPECIFIED ORGANISM; J91.8 - PLEURAL EFFUSION IN OTHER CONDITIONS CLASSIFIED ELSEWHERE Status: Acute Comment: As above. (5) Renal infarct Code(s): N28.0 - ISCHEMIA AND INFARCTION OF KIDNEY Status: Acute (6) Chronic anemia Code(s): D64.9 - ANEMIA, UNSPECIFIED Status: Chronic (7) Septic embolism Code(s): I26.90 - SEPTIC PULMONARY EMBOLISM WITHOUT ACUTE COR PULMONALE Status : Suspected Comment: with renal infarcts. (8) Blurry vision, left eye Code(s): H53.8 - OTHER VISUAL DISTURBANCES Status: Resolved Comment: Visual acuity normal on bedside exam (9) Hematemesis Code(s): K92.0 - HEMATEMESIS Status: Resolved Comment: No recurrence, hemoglobin stable - Plan * .
[2017-05-26] MEDS: guaiFENesin ER 600 MG TAB PO SCH ×2 (08:47→20:00)
[2017-05-26] MEDS: Ferrous Sulfate 325 MG TAB PO SCH (08:47)
[2017-05-26] MEDS: Benzonatate 100 MG CAP PO SCH ×3 (08:47→20:00)
[2017-05-26] MEDS: Enoxaparin Sodium 40 MG/0.4 ML SYRINGE SC SCH (08:48)
--- NOTE | 2017-05-26 13:53 | PDOC.PN ---
- Subjective Encounter Start Date: 05/26/17 Encounter Start Time: 08:00 -: non-verbal Pt sleeping soundly, lungs, heart, PICC, skin examined. no acute events overnight, no N/V/D/c, no CP or SOB reported - Objective MAR Reviewed: Yes Vital Signs & Weight: Vital Signs (12 hours) Temp Pulse Resp BP Pulse Ox 05/26/17 08:00 98.4 F 96 16 99 05/26/17 07:25 98.4 F 96 16 96/62 99 Weight Admit Weight 108 lb 14.4 oz Weight 111 lb 12.8 oz Most Recent Monitor Data Heart Rate from ECG 80 NIBP 112/76 NIBP BP-Mean 84 Respiration from ECG 25 SpO2 100 I&O: 05/25/17 05/26/17 05/27/17 06:59 06:59 06:59 Intake Total 2200 1700 Balance 2200 1700 Result Diagrams: 05/25/17 03:18 05/25/17 03:18 Phys Exam - Physical Examination Constitutional: NAD HEENT: moist MMs Neck: no nodes, no JVD, supple Respiratory: no wheezing, no rales, no rhonchi, clear to auscultation bilateral Cardiovascular: RRR, no significant murmur, no rub Gastrointestinal: soft, non-tender, no distention, positive bowel sounds Musculoskeletal: no edema, pulses present Lymphatic: no nodes Skin: no rash, normal turgor, cap refill <2 seconds Dx/Plan (1) Endocarditis Code(s): I38 - ENDOCARDITIS, VALVE UNSPECIFIED Status: Acute Qualifiers: Endocarditis type: infective Infective endocarditis organism: bacterial Chronicity: acute Qualified Code(s): I33.0 - Acute and subacute infective endocarditis Comment: MRSA. Major bacteriolgic, +emboli, +valvular predispotion, +fever. meets criteria. Vanc until 06/06 to complete Rx, will need TTE then (2) Lupus (systemic lupus erythematosus) Code(s): M32.9 - SYSTEMIC LUPUS ERYTHEMATOSUS, UNSPECIFIED Status: Chronic Qualifiers: Systemic lupus erythematosus type: unspecified Systemic lupus erythematosus organ involvement: unspecified Qualified Code(s): M32.9 - Systemic lupus erythematosus, unspecified (3) MRSA pneumonia Code(s): J15.212 - PNEUMONIA DUE TO METHICILLIN RESISTANT STAPHYLOCOCCUS AUREUS Status: Acute Qualifiers: Laterality: bilateral Comment: Stable. Saturating well on room air. Repeat ECH0- EF 50-55%. Continue IV Vancomycin (end date: 06/06). (4) Parapneumonic effusion Code(s): J18.9 - PNEUMONIA, UNSPECIFIED ORGANISM; J91.8 - PLEURAL EFFUSION IN OTHER CONDITIONS CLASSIFIED ELSEWHERE Status: Acute Comment: As above. (5) Renal infarct Code(s): N28.0 - ISCHEMIA AND INFARCTION OF KIDNEY Status: Acute (6) Chronic anemia Code(s): D64.9 - ANEMIA, UNSPECIFIED Status: Chronic (7) Septic embolism Code(s): I26.90 - SEPTIC PULMONARY EMBOLISM WITHOUT ACUTE COR PULMONALE Status : Suspected Comment: with renal infarcts. (8) Blurry vision, left eye Code(s): H53.8 - OTHER VISUAL DISTURBANCES Status: Resolved Comment: Visual acuity normal on bedside exam (9) Hematemesis Code(s): K92.0 - HEMATEMESIS Status: Resolved Comment: No recurrence, hemoglobin stable - Plan * . no changes today, awaiting CM results. latest two facilities refused, one accepted it patient able to prepay 4170/d for 30d, which she could not
[2017-05-26 15:38] LABS: Vancomycin, Trough 20.4 ug/mL
[2017-05-27 08:21] VITALS: BP 99/66; TEMP 97.7
[2017-05-27] MEDS: Ferrous Sulfate 325 MG TAB PO SCH (08:56)
[2017-05-27] MEDS: guaiFENesin ER 600 MG TAB PO SCH (08:56)
[2017-05-27] MEDS: Benzonatate 100 MG CAP PO SCH (08:56)
[2017-05-27] MEDS: Enoxaparin Sodium 40 MG/0.4 ML SYRINGE SC SCH (08:57)
--- NOTE | 2017-05-28 18:02 | DIS ---
DATE OF ADMISSION: 04/23/2017 DATE OF DISCHARGE: 05/27/2017 PRIMARY CARE PHYSICIAN: None. DISCHARGE DIAGNOSES: 1. Methicillin-resistant Staphylococcus aureus bacteremia. 2. Septic pulmonary emboli with methicillin-resistant Staphylococcus aureus lung abscess and pneumon ia. 3. Septic splenic infarcts. 4. Methicillin-resistant Staphylococcus aureus endocarditis. 5. Systemic lupus erythematosus. 6. Long-term current use of antibiotics. CONSULTATIONS: 1. Pulmonary Critical Care, initially Dr. Lance Rolle. 2. Infectious Disease, Dr. Rene Luke. 3. Nephrology, Dr. Toby Goodwin. 4. Cardiology, Dr. Joel Seals. 5. GI, Dr. Sd Haq. PROCEDURES PERFORMED: 1. PICC line placement, right upper extremity on 05/17/2017, by Dr. Kaushik Thrasher. 2. A 2D echocardiogram, 05/20/2017, by Dr. Joel Seals, showed ejection fraction of 50% to 55%, normal diastolic dysfunction, mild mitral regurgitation, mild tricuspid regurgitation, mild PI and sm all pericardial effusion without tamponade and no evidence of vegetation. 3. On 04/28/2017, by Dr. Joel Seals, transesophageal echocardiogram showed an ejection fraction of 55% to 60%. No evidence of mass or thrombus, normal systolic function and normal left ventricula r, valves are normal without vegetations. 4. A 2D echocardiogram on 04/24/2017 that showed a trivial pericardial effusion, trace tricuspid reg urgitation and trace mitral regurgitation. HOSPITAL COURSE: Ms. Davalos is a 22-year-old female with history of lupus, who presents to [facility] for shortness of breath and cough. She was seen in [place] [facility], found to have bi lateral pneumonia and transferred here for further workup and evaluation. She has had a white count of 14.6 and platelets 414, fairly benign chemistry. CT of the chest showed large bilateral cavitary lesions with small pulmonary nodules and cavitary nodules bilaterally and right lung base consolidati on. We were called for admit. The patient was seen and examined by Dr. Veronica. A cavitary lesion p rompted tuberculosis workup. Infectious Disease was consulted and the patient continued on vancomyci n and Unasyn. ANCA, sed rate, CRP, and rheumatoid factors were obtained, but CTA negative for pulmon lindsay embolus. The patient was in house from 04/23-05/27. During that time, she initially had a TTE that was negati ve for evidence of endocardial abnormalities. She did have positive blood cultures for MRSA present at the outside facility and a positive culture. Blood cultures done on arrival here after first dose of vancomycin remained negative. AFB cultures and smears were negative as well. Once her blood cultures were negative, patient also had a PICC line placed for long-term IV antibioti c. PICC line developed problems had to be removed and replaced [facility], but it was never infected. Further imaging at the other facility prior to transfer of the abdomen and pelvis did show a borderli ne splenomegaly, right kidney low dense lesions likely infarcts and persistent bilateral nephrograms revealing probable acute renal disease. During her stay, she also developed transient decreased vision in her eye, likely from an embolic phe nomenon. She was continued transition to Zyvox from 04/27 until 05/19, however, started developing low platele ts and thus was transitioned to vancomycin intravenously. She is planning on going through antibioti cs until 06/06. Vancomycin levels were arranged, and arrangement was made for placement. Due to the fact the patient's family lives far away, and she had no insurance at present, she is unde rgoing an emergency Medicaid approval, caseworker intake began search for facility to complete her antibio tics. Over 100 facilities were researched and queried and had no acceptance until 05/26/2017, when simran ocampo should accept at the facility in [place], [place], near her family. The patient was otherwise stable and doing well and was stable for transfer on 05/27 for completion of antibiotics. At the time of anabel madison, she had another 10 days to go until the morning of 06/06/2017. Recommendations for weekly C BC, CMP and vancomycin trough were made. PHYSICAL EXAMINATION: The patient was seen and examined on the day of discharge. Discharge plan and disposition was discussed with the patient [id number] at the bedside. DISCHARGE MEDICATIONS: 1. Vancomycin 2 grams IV q.12 hours until 06/06. 2. Tramadol 50 mg p.o. q.6 hours p.r.n. 3. Protonix 40 mg daily. 4. Zofran 4 mg p.o. q.6 hours p.r.n. nausea and vomiting. 5. Ipratropium nebs q.4 hours p.r.n. 6. Mucinex 600 mg p.o. b.i.d. 7. Guaifenesin ER. 8. Iron sulfate 325 mg p.o. q.a.m. 9. Tessalon 100 mg p.o. t.i.d. p.r.n. cough. 10. Antacids every 6 hours as needed. 11. Tylenol p.r.n. LABORATORY DATA: CMP and vancomycin trough and CBC weekly q. Wednesday until completion of antibiotics. FOLLOWUP APPOINTMENTS: 1. Primary care physician there at the facility on a weekly basis for lab review and PICC line check . 2. Follow up with Dr. Luke as needed. 3. Follow up with Katherine Almeida in [place]. DISCHARGE DISPOSITION: The patient being transferred to [facility] in [place] at [facility].
--- NOTE | 2017-06-14 11:09 | EKG ---
Test Reason : Blood Pressure : / mmHG Vent. Rate : 113 BPM Atrial Rate : 113 BPM P-R Int : 126 ms QRS Dur : 082 ms QT Int : 336 ms P-R-T Axes : 036 052 013 degrees QTc Int : 460 ms Sinus tachycardia Otherwise normal ECG When compared with ECG of 30-APR-2017 12:13, No significant change was found Confirmed by LISA ESQUIVEL M.D. ([id number]) on 06/14/2017 11:08:36 AM Referred By: ARINA Confirmed By:LISA ESQUIVEL M.D.
== END 2017-05-27 13:15 | DRG 871 ==
LOC: ERS 18:08 → 2SW 21:29 → ERHOLD 21:55 → 2SE 22:41 → CCU 04-27 16:33 → 2NO 04-28 17:40 → 3SE 05-10 22:23 → T4-A 05-14 23:09
PROVIDERS: ADMIT Internal Medicine; ATTEND Internal Medicine
PROC: 3E0 Administration, Physiological Systems and Anatomical Regions, Introduction (ICD-10-PCS; 2017-04-26)
PROC: 02HV33Z Insertion of Infusion Device into Superior Vena Cava, Percutaneous Approach (ICD-10-PCS; 2017-04-27)
PROC: B548ZZA Ultrasonography of Superior Vena Cava, Guidance (ICD-10-PCS; 2017-04-27)
PROC: B24BZZ4 Ultrasonography of Heart with Aorta, Transesophageal (ICD-10-PCS; 2017-04-28)
PROC: 0W9B3ZZ Drainage of Left Pleural Cavity, Percutaneous Approach (ICD-10-PCS; principal; 2017-05-15)
PROC: 02HV33Z Insertion of Infusion Device into Superior Vena Cava, Percutaneous Approach (ICD-10-PCS; 2017-05-17)
DX: A41.02 Sepsis due to Methicillin resistant Staphylococcus aureus (principal); I26.90 Septic pulmonary embolism without acute cor pulmonale; I33.0 Acute and subacute infective endocarditis; J85.1 Abscess of lung with pneumonia; J15.212 Pneumonia due to Methicillin resistant Staphylococcus aureus; J91.8 Pleural effusion in other conditions classified elsewhere; I74.8 Embolism and thrombosis of other arteries; N17.9 Acute kidney failure, unspecified; N28.0 Ischemia and infarction of kidney; H53.129 Transient visual loss, unspecified eye; R04.2 Hemoptysis; R65.20 Severe sepsis without septic shock; E83.51 Hypocalcemia; M32.9 Systemic lupus erythematosus, unspecified; Z79.2 Long term (current) use of antibiotics; R00.0 Tachycardia, unspecified; D53.9 Nutritional anemia, unspecified
CPT/HCPCS: 36415; 36569; 36584; 71045; 71046; 71275; 72170; 74176; 76700; 80048; 80053; 80202; 80500; 81025; 81240; 82274; 82607; 82728; 82746; 82945; 83010; 83090; 83540; 83550; 83605; 83615; 83735; 83986; 84100; 84157; 84443; 85007; 85025; 85027; 85046; 85060; 85240; 85300; 85303; 85305; 85307; 85379; 85598; 85610; 85611; 85613; 85652; 85670; 85730; 85732; 86021; 86038; 86225; 86480; 87070; 87086; 87116; 87205; 87206; 87389; 87449; 88112; 88305; 89051; 93005; 93010; 93306; 93312; 94640; 96361; 96365; 96367; 96375; A4216; C1751; C9113; G8978-GP-CI; G8979-GP-CH; J0692; J1100; J1644; J1650; J2020; J2405; J2704; J2920; J3370; J7050; J7506; J7620; J7644; Q0162

== ENCOUNTER 2017-11-28 05:16 | Inpatient (IN) | payer MEDICAID, OTHER ==
[2017-11-28] MEDS ORDERED: Morphine 4 MG/ML VIAL ONE (05:50)
[2017-11-28] MEDS ORDERED: Ondansetron ODT 4 MG TAB PO PRN (07:24)
[2017-11-28] MEDS ORDERED: Ondansetron PF 4 MG/2 ML Vial IVP PRN (07:24)
[2017-11-28] MEDS ORDERED: Acetaminophen 325 MG TAB PO PRN ×2 (07:25→21:15)
[2017-11-28] MEDS ORDERED: HYDROcodone/Acetaminophen 5/325 mg Tablet PO PRN ×3 (07:25→21:21)
[2017-11-28] MEDS: Clindamycin/D5W 600 MG in Premix Bag 1 BAG IVPB SCH ×2 (08:36→13:34)
[2017-11-28] MEDS: Sodium Chloride 0.9% 1,000 ML IV SCH ×4 (08:41→16:08)
[2017-11-28] MEDS ORDERED: Vancomycin HCl 1 GM in Premix Bag 1 BAG IVPB SCH (09:00)
[2017-11-28] MEDS ORDERED: Cefepime 2 GM in Sodium Chloride 0.9% 100 ML IVPB SCH (09:00)
[2017-11-28 09:01] VITALS: BMI 23.4
--- NOTE | 2017-11-28 09:05 | ULT ---
ULTRASOUND WITH DOPPLER DUPLEX VENOUS LOWER EXTREMITY RIGHT: CPT: 89217 ICD-10-PCS: B54D INDICATION: Pain. TECHNIQUE: Color flow Doppler, spectral waveform analysis of pulsed Doppler, and garcias-scale imaging with brianne cande and augmentation, were used to evaluate the bilateral common femoral, femoral, popliteal, senior ruby developer ior tibial, and superficial femoral, veins; and the proximal portions of the profunda femoral and gre ater saphenous, veins. FINDINGS: There is appropriate compressibility and flow within the imaged deep vein system of the right lower e xtremity. IMPRESSION: No deep venous thrombosis. POS: [facility]
[2017-11-28 09:54] LABS: CRP (Inflammatory) 2.76 mg/dL (= or < 0.5)
[2017-11-28] MEDS: Famotidine 20 MG TAB PO SCH ×2 (09:56→20:53)
[2017-11-28] MEDS: Enoxaparin Sodium 40 MG/0.4 ML SYRINGE SC SCH (09:57)
[2017-11-28 10:30] LABS: Bilirubin Negative (Negative); Blood, Urine Negative (Negative); Clarity CLEAR (Clear); Glucose, Urine (Dipstick) Negative (Negative); Leukocyte Negative (Negative); Nitrite Negative (Negative); Protein, Urine (Dipstick) Negative (Neg-Trace); Specific Gravity, Urine 1.006 (1.002-1.036); Urobilinogen 0.2 mg/dL (0.2-1.0)
[2017-11-28 10:32] LABS: Pregnancy Test - Urine (BHCG) Negative (Negative); Pregu Control Background? CLEAR/WHITE (CLR/WHITE); Pregu Control Bar Appear? YES (CONTROL BAR); Specific Gravity 1.006 (1.002-1.036)
--- NOTE | 2017-11-28 10:46 | RAD ---
2 VIEW CHEST: Date: 11/28/17 COMPARISON: 05/17/17. INDICATION: History of pneumonia, SIRS. FINDINGS: From prior exam, there has been clearing of bilateral pulmonary parenchymal opacities with mild resid ua remaining at each lower lung zone. Prior right PICC line has been removed. Cardiac silhouette is s table. There is no effusion or pneumothorax. IMPRESSION: Interval improvement with regard to prior bilateral parenchymal opacities with mild residua remaining at each lower lung zone, which does include a rounded component at the left lower lung zone and ther efore continued follow-up to complete resolution is recommended. CODE T. POS: [facility]
--- NOTE | 2017-11-28 13:56 | HP ---
CHIEF COMPLAINT: Right leg pain. HISTORY OF PRESENT ILLNESS: This patient is a 22-year-old female who has a remarkable history for ad mission in April of this year; at which time, the patient had complications from lupus which primaril y manifest as severe cavitary bilateral methicillin-resistant Staphylococcus aureus pneumonia with mu ltiple septic emboli. The patient was given a PICC line and had long-term IV vancomycin therapy. e patient has apparently done well since that time and was in a usual state of health until a few day s ago when she started experiencing some generalized malaise, fatigue, some chills and just general s omnolence. She then developed some pain in her right leg which extends from the hip all the way down to her foot. She has a small lesion on the medial instep area of the foot that was extremely prurit ic without a substantial amount of erythema. The patient reports that she does not go outside and wo uld be unlikely that she was exposed to anything like poison Rubus. Nonetheless, the patient was con cerned because this is very similar to the way she presented back in April when she was found to have the severe methicillin-resistant Staphylococcus aureus infection. Therefore, they presented to the [facility]. There her workup included labs which revealed a white count of 11 .3, 87% segs, 6% lymphocytes, and 4.8% monocytes. Chemistries were normal. Lactic acid was 0.8. e patient was found to be tachycardic and had a temperature just over 100 and was felt to have findin gs consistent with SIRS. Subsequently, the patient did have blood cultures obtained. She received a dose of vancomycin and cefepime and was transferred to our ER here. Currently, the patient continue s to report the pain in the leg. It is painful with movement. It is painful to palpation. REVIEW OF SYSTEMS: The patient denies specific fevers, but does have some chills. She does have darrion e variable rash related to her lupus, but does not have anything new associated with this particular episode and she has had a normal bowel and bladder habits. She has no other musculoskeletal or neuro logic symptoms and the remainder of the 10 system review is negative except for those things mentione d in the history of present illness. PAST MEDICAL HISTORY: Notable for the systemic lupus erythematosus on the above-mentioned admission back in April for methicillin-resistant Staphylococcus aureus pneumonia with large cavitary lesions o f the lungs bilaterally with what appeared to be some septic emboli to the spleen and potentially to an eye causing transient vision issues. PAST SURGICAL HISTORY: . SOCIAL HISTORY: Nonsmoker, nondrinker, nondrug user. FAMILY HISTORY: No autoimmune diseases. ALLERGIES: ADHESIVE TAPE. CURRENT MEDICATIONS: None. PHYSICAL EXAMINATION: VITAL SIGNS: Temperature 98.4, pulse 108, respirations 16, O2 sat 98% on room air, BP is 111/74. GENERAL APPEARANCE: Age appropriate female, in no distress. She is awake, alert, oriented, pleasant , cooperative and generally healthy appearing. HEENT: PERRL. No OP lesions. NECK: Supple and symmetric. CARDIOVASCULAR: Regular rate and rhythm without murmurs, gallops or rubs. LUNGS: Clear to auscultation bilaterally. ABDOMEN: Soft, nontender, nondistended with positive bowel sounds. EXTREMITIES: Warm and dry bilaterally. There is no erythema or edema noted. There is tenderness to palpation on the soft tissue of the right lower extremity which appears to be generally mild. There is no inguinal lymphadenopathy palpated. There is a small superficial lesion on the instep of the r ight foot which appears to be linear and basically vesicular in linear distribution. LABORATORY DATA: As reported in the HPI. IMPRESSION AND PLAN: 1. Systemic inflammatory response syndrome in a patient who is immunocompromised because of lupus. She has mild leukocytosis, tachycardia, low grade fever. She has a substantial history of a prior me thicillin-resistant Staphylococcus aureus infection, presenting very similarly to this. The patient has received vancomycin, cefepime, and clindamycin and cefepime continued at this time. We will foll ow up on the blood cultures that were obtained through [place]. We will consult Infectious Dise ase. I will check sed rate, CRP, complement levels, test and chest x-ray and a urinalysis. 2. Systemic lupus. Again, we will check a complement level, CRP, sed rate. The patient is not curr ently on any active immunosuppression therapy. 3. Right foot skin lesion, certainly appears to be more consistent with a contact dermatitis and the fact that it is linear, but vesicular and is extremely pruritic. There is no significant erythema a ssociated with this. 4. Right lower extremity pain, etiology of this is unclear. We will check a CK level. We will also have the vascular ultrasound obtained to rule out DVT, although there is no clinical evidence of inf lammation. May at some point need to get some x-rays of the joints as well. She indicates that she believes the focus of the pain may be more around the knee, although it is uncomfortable even at her hip joint just attempting to sit up for the exam.
--- NOTE | 2017-11-28 18:03 | CON ---
DATE OF CONSULTATION: 11/28/2017 REASON FOR CONSULTATION: Pain in right lower extremity. HISTORY OF PRESENT ILLNESS: A 22-year-old known to us from previous admission who has a history of r eported systemic lupus erythematosus, which is not well documented and then Staphylococcus aureus sosa teremia with septic pulmonary involvement and likely endocarditis. The patient was treated protracte d period of time with I believe IV vancomycin. In April of this year, did well after that until she developed progressively worsening pain in the right lower extremity. This is associated with fever u p to 100.8. Initial findings included BP 171, pulse 113, temperature 99.8, O2 sat 99%. Appears in s ome distress. The examination was fairly unremarkable except for marked tenderness on mobilization o f the right lower extremity. Initial values of tests included white cell count 11.3, hemoglobin 13, platelets 265, 68% neutrophils and chemistry with a creatinine of 0.63, phosphorus 4.8, iron 11. Tra nsaminases normal. LDH 222, CRP 2.76, albumin 4.4. Previous serology from the past showed negative HIV serology. Currently she is awake, denies headaches, visual symptoms, sore throat, odynophagia, d ysphagia, no cough or sputum production or chest pain, no abdominal pain, diarrhea, or genitourinary symptoms. Marked pain in the right lower extremity at the hip. No other joint symptoms. PAST MEDICAL HISTORY: Methicillin-resistant Staphylococcus aureus, endocarditis, septic pulmonary in volvement, also history of systemic lupus erythematosus, which is not well documented. ALLERGIES: None. SOCIAL HISTORY: She is living with relatives in [place] at least for the time being. CURRENT MEDICATIONS: Tylenol, clindamycin, Lovenox, ondansetron. SOCIAL HISTORY: Current previous smoker. No IV drug use. 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 PHYSICAL EXAMINATION: VITAL SIGNS: Temperature max 98.7, blood pressure 119/81, pulse 103-121, respirations 16, O2 sat 99% . SKIN: No areas of abnormal skin findings noted at this time. Peripheral IV access. No lymphadenopa thy. HEENT: Noncontributory. NECK: Supple, no jugular venous distention. BACK: No back tenderness. LUNGS: Symmetric clear breath sounds. HEART: S1, S2, regular rate without murmurs. ABDOMEN: Soft, not distended or tender. No ascites. No bladder distention. MUSCULOSKELETAL: Marked tenderness on mobilization of the right hip. She does not allow flexion or extension or log roll maneuver without eliciting marked pain on the right side. No other joint infla mmatory process. Pulses are normal in lower extremities. She moves extremities equally except for l imitations imposed by the inflammatory process in the right hip. NEUROLOGIC: Cognitive function appears to be intact. LABORATORY DATA: Has been noted above. Microbiology, we have seen in blood culture submitted here. ASSESSMENT AND PLAN: History of lupus, not well documented and recent episode of MRSA, presumable en docarditis with septic pulmonary involvement, treated for a protracted period of time who now comes i n with likely right hip infection or inflammatory process. We will proceed with an MRI of the right hip with contrast. May need a guided aspirate. Osteomyelitis of the femur will be another possibili ty related to the prior episode of bacteremia. Follow up blood cultures. Repeat 2D echocardiogram.
[2017-11-29 05:13] LABS: #Eosinphils 0.1 thou/uL (0.0-0.7); #Lymphocytes 1.5 thou/uL (1.20-3.40); #Monocytes 0.4 thou/uL (0.11-0.59); #Neutrophils 5.2 thou/uL (1.40-6.50); %Basophils 0.7 % (0.0-1.0); %Eosinophils 1.3 % (0.0-10.0); %Lymphocytes 20.7 % (28.0-48.0); %Monocytes 5.8 % (0.0-4.0); %Neutrophils 71.5 % (31.0-61.0); Hemoglobin 12.5 g/dL (12.0-16.0); Mean Corpuscular HGB CONC 33.8 g/dL (32.0-36.0); Mean Corpuscular Hemoglobin 30.7 pg (25.0-35.0); Mean Corpuscular Volume 90.9 fL (78.0-98.0); Mean Platelet Volume 6.7 fL (7.4-10.4); Platelet Count 267 thou/uL (130-400); RBC Distribution Width 11.4 % (11.5-14.5); Red Blood Cell (RBC) Count 4.08 mill/uL (4.00-5.20); White Blood Cell (WBC) Count 7.2 thou/uL (4.8-10.8)
[2017-11-29] MEDS: Sodium Chloride 0.9% 1,000 ML IV SCH ×2 (05:24→12:56)
[2017-11-29 05:42] LABS: ALT (SGPT) 7 U/L (8-55); AST (SGOT) 11 U/L (5-34); Albumin 4.2 g/dL (3.5-5.0); Alkaline Phosphatase 63 U/L (40-150); Anion Gap 11 mmol/L (10-20); BUN (Urea Nitrogen) 8 mg/dL (7.0-18.7); Bilirubin, Total 0.5 mg/dL (0.2-1.2); Calc. Creatinine Clearance 124 mL/min (70-130); Calcium 9.7 mg/dL (7.8-10.44); Carbon Dioxide 22 mmol/L (22-29); Chloride 110 mmol/L (98-107); Estimated GFR-MDRD Greater than 90; Globulin 2.6 g/dL (2.4-3.5); Glucose 89 mg/dL (70-105); Protein, Total 6.8 g/dL (6.0-8.3); Sodium 139 mmol/L (136-145)
[2017-11-29] MEDS: Famotidine 20 MG TAB PO SCH ×2 (08:50→21:07)
[2017-11-29] MEDS: Enoxaparin Sodium 40 MG/0.4 ML SYRINGE SC SCH (08:50)
[2017-11-29] MEDS: HYDROcodone/Acetaminophen 5/325 mg Tablet PO PRN ×2 (13:02→21:27)
--- NOTE | 2017-11-29 15:53 | MRI ---
MRI RIGHT HIP WITH AND WITHOUT CONTRAST: Date: 11/29/17 HISTORY: MRSA bacteremia, right hip pain and fever. COMPARISON: None. FINDINGS: Bones: There is some mild increased T2 signal of the subcortical medullary cavity of the right femoral epiph ysis relative to the left. On the T1-weighted sequence, there is increased red marrow of the right fe moral head, as well as the femoral neck. There is erosion of the cortex of the right femoral head, be st seen on coronal image 6 of series 5 and sagittal image 14 of series 10. The overlying cartilage is eroded. There is some mild hyperemia surrounding the fovea of the right femur, as well as some mild right quyen tabular edema. Soft Tissues: There is abnormal hyperenhancement of the right joint capsule with a large joint effusion, likely inf ectious in nature, suggesting septic arthritis. Intrapelvic Soft Tissues: Unremarkable. Musculature: There is some low grade edema of the vastus lateralis muscle. Tendons: Iliopsoas tendon is normal. IMPRESSION: 1. Findings highly concerning for septic arthritis of the right hip with an early cortical erosion o f anterior femoral head with subcortical marrow edema and some hyperemia of the right acetabulum, fem oral head/neck, and intertrochanteric region. 2. Abnormal soft tissue edema anterior thigh adjacent to the caudad margin of the capsule, may be se quelae of recent injection versus decompression of infected fluid along the anterior margin and later al margin of the vastus lateralis muscle with findings concerning for early myositis. Dr. Luke notified of findings via telephone at 1530 hours. CODE CR. POS: [facility]
--- NOTE | 2017-11-29 15:58 | PRG ---
DATE OF SERVICE: 11/29/2017 SUBJECTIVE: Still with marked pain, right hip. No respiratory symptoms, no abdominal pain, no diarr hea. PHYSICAL EXAMINATION: VITAL SIGNS: T-max 98.8, blood pressure 105/68, pulse 83, respirations 18-20, O2 saturation 99%. GENERAL: Appears in no acute distress. HEENT: Ocular movements conjugate. NECK: Supple. LUNGS: Clear. HEART: S1, S2, regular rate. ABDOMEN: Soft. MUSCULOSKELETAL: Marked pain on mobilization of right hip, 1+ dorsalis pedis right and left feet. N o edema. LABORATORY DATA: Complement level was normal. Microbiology: We do not have any information at this time. IMAGING DATA: MRI showed septic right hip according to radiologist. ASSESSMENT AND DISCUSSION: Previous MRSA bacteremia felt to be secondary to endocarditis, treated fo r a protracted period of time now with septic right hip. Consult orthopedic surgeries. Restart vanc omycin plus Rocephin.
[2017-11-29] MEDS ORDERED: Vancomycin HCl 1.25 GM in Sodium Chloride 0.9% 250 ML 250 ML IVPB SCH ×2 (16:00→21:00)
--- NOTE | 2017-11-29 21:56 | PDOC.PN ---
- Subjective Encounter Start Date: 11/29/17 Encounter Start Time: 09:40 Still has pain in the right leg, but better. She does report that she was originally diagnosed with SLE at 16. She was reassessed by Dr. Gal Meeks in [place] last year and the diagnosis was confirmed. She is not on specific therapy. - Objective Resuscitation Status: Resuscitation Status FULL:Full Resuscitation Vital Signs & Weight: Vital Signs (12 hours) Temp Pulse Resp BP Pulse Ox 11/29/17 20:00 97.8 F 82 16 96/64 98 Weight Weight 120 lb I&O: 11/28/17 11/29/17 11/30/17 06:59 06:59 06:59 Intake Total 2988 1350 Balance 2988 1350 Result Diagrams: 11/29/17 04:53 11/29/17 04:53 Phys Exam - Physical Examination Constitutional: NAD Respiratory: no wheezing, no rales, no rhonchi Cardiovascular: RRR, no significant murmur Gastrointestinal: soft, non-tender, no distention Persistent TTP in the right thigh. Right foot skin lesion unchanged. Psychiatric: normal affect Dx/Plan (1) Septic arthritis of hip Code(s): M00.9 - PYOGENIC ARTHRITIS, UNSPECIFIED Status: Acute (2) History of MRSA infection Code(s): Z86.14 - PERSONAL HISTORY OF METHICILLIN RESIS STAPH INFECTION Status : Acute (3) Lupus (systemic lupus erythematosus) Code(s): M32.9 - SYSTEMIC LUPUS ERYTHEMATOSUS, UNSPECIFIED Status: Chronic Qualifiers: Systemic lupus erythematosus type: unspecified Systemic lupus erythematosus organ involvement: unspecified Qualified Code(s): M32.9 - Systemic lupus erythematosus, unspecified - Plan * ID following. Likely MRSA of the right hip joint. Vanc/Cefepime resumed. Ortho consulted.
--- NOTE | 2017-11-29 23:42 | CON ---
DATE OF CONSULTATION: 11/29/2017 CHIEF COMPLAINT: Right hip pain. HISTORY OF PRESENT ILLNESS: Ms. Davalos is a 22-year-old female who presented to the hospital 2 days ago. She was admitted with severe hip pain. This has worsened. She has had a workup including MRI of the hip, which has demonstrated a large effusion suggestive of infection. She has been on vancomy talisha as well as clindamycin. Of note, she has a recent history of sepsis with endocarditis and multip le septic emboli from the Staphylococcus aureus. The patient had foot infection. She had a long cou rse of intravenous antibiotics and was thought to be cleared of her infection. However, her hip has spontaneously began to be increasingly painful and looking like a recurrent infection. She has pain with movement, although it is better with pain medication. She has been having difficulty with ambul ation. PAST MEDICAL HISTORY: Systemic lupus as well as history of Staphylococcal infection in the lungs as well as septic emboli to the spleen and endocarditis. PAST SURGICAL HISTORY: section. SOCIAL HISTORY: No smoking, alcohol, or drug use. FAMILY MEDICAL HISTORY: Negative. ALLERGIES: ADHESIVE TAPE. MEDICATIONS: The patient is on vancomycin and clindamycin as an inpatient as well as pain medication . PHYSICAL EXAMINATION: VITAL SIGNS: Temperature is 98.5, pulse is 83, respiratory rate 20, 99% on room air, blood pressure 105/68. GENERAL: She is alert, lying supine in no apparent distress. RESPIRATORY: Breathing comfortably. ABDOMEN: Soft, nontender, nondistended. CARDIOVASCULAR: Pulses palpable and regular. MUSCULOSKELETAL: The patient's right leg has pain with hip motion. She has pain with log rolling as well as flexion. She has minimal arc of motion. Knee has no effusion, no erythema. She is neurova scularly intact in the foot and ankle distally. She has palpable dorsalis pedis pulse. IMAGES: MRI of the right hip demonstrates a large effusion with possible erosion of the femoral head . These are suggestive of infection and possible early osteomyelitis. IMPRESSION: History of lupus with severe Staphylococcal infection several months ago. Now, the samia ent appears to have a septic right hip likely with a Staphylococcal infection. PLAN: At this point, we will make them the patient n.p.o. at midnight. She will need to go to [facility] tomorrow for irrigation and debridement of her hip joint. We will perform an arthrotomy for irrig ation. She will need long-term intravenous antibiotics as well. These will be guided by Dr. Luke. She will have adequate pain control. She can mobilize weightbearing as tolerated on the hip, althou gh she is limited because of pain. I have reviewed questions and answers as well as risks. Risks to include progression of infection to osteomyelitis, destruction of the hip joint post infection, arth ritis and others.
[2017-11-30] MEDS: Vancomycin HCl 1 GM in Premix Bag 1 BAG IVPB SCH ×3 (00:12→18:56)
[2017-11-30] MEDS: Sodium Chloride 0.9% 1,000 ML IV SCH ×2 (01:00→21:04)
[2017-11-30] MEDS: Famotidine 20 MG TAB PO SCH ×2 (08:51→20:09)
[2017-11-30] MEDS: Enoxaparin Sodium 40 MG/0.4 ML SYRINGE SC SCH (08:51)
[2017-11-30] MEDS: HYDROcodone/Acetaminophen 5/325 mg Tablet PO PRN ×2 (09:05→16:11)
[2017-11-30] MEDS ORDERED: Neomycin-Polymyxin 1 ML AMP ONE (11:28)
[2017-11-30] MEDS ORDERED: Fentanyl 250 MCG/5 ML VIAL ONE (12:04)
[2017-11-30] MEDS ORDERED: Midazolam HCl 2 mg/2 ml Vial ONE (12:04)
[2017-11-30] MEDS ORDERED: SUGAMMADEX SODIUM 200 MG/2 ML VIAL ONE (14:07)
[2017-11-30] MEDS ORDERED: Glycopyrrolate 0.2 MG/ML 5 ML SYRINGE ONE (16:45)
[2017-11-30] MEDS ORDERED: Dexamethasone 20 MG/5 ML VIAL ONE (16:45)
[2017-11-30] MEDS ORDERED: Ondansetron PF 4 MG/2 ML Vial ONE (16:45)
[2017-11-30] MEDS ORDERED: Ketorolac Tromethamine 30 MG/ML VIAL ONE (16:45)
[2017-11-30] MEDS ORDERED: PROPOFOL 200 MG/20 ML VIAL ONE (16:45)
[2017-11-30] MEDS ORDERED: Lidocaine 1% PF 5 ML VIAL ONE (16:45)
[2017-11-30 18:32] LABS: Vancomycin, Trough 8.6 ug/mL
--- NOTE | 2017-11-30 18:58 | PRG ---
DATE OF SERVICE: 11/30/2017 SUBJECTIVE: The patient is postop, feeling a bit of discomfort in her hip, otherwise has no specific complaints or concerns. OBJECTIVE: VITAL SIGNS: Temperature 97.8, pulse 67, respirations 18, O2 sat 97% on room air, BP of 91/66. GENERAL APPEARANCE: Age appropriate female. She is in no distress. She is awake, alert, and oriented, pleasant, cooperative. HEENT: PERRL. No OP lesions. NECK: Supple and symmetric. HEART: Regular rate and rhythm without murmurs. LUNGS: Clear. ABDOMEN: Benign. EXTREMITIES: Right lower extremity warm and dry with good peripheral pulses. IMPRESSION AND PLAN: 1. Septic arthritis of the right hip with a septic myositis, status post surgical washout of the hip joint. ID following. Ortho following. Continue with the vancomycin and follow up on the cultures. 2. Systemic lupus erythematosus, stable. No current treatment. MTDD
[2017-11-30] MEDS ORDERED: Vancomycin HCl 1 GM in Premix Bag 1 BAG IVPB SCH (19:00)
--- NOTE | 2017-11-30 20:41 | OP ---
DATE OF OPERATION: 11/30/2017 OPERATION: Right hip irrigation and debridement. PREOPERATIVE DIAGNOSIS: Right intra-articular hip infection. POSTOPERATIVE DIAGNOSIS: Right intraarticular hip infection. COMPLICATIONS: None. ESTIMATED BLOOD LOSS: Minimal. SURGEON: Sd Gonzalez M.D. DEBRANDER: Ranjit Frausto PA-C. INDICATIONS: Ms. Davalos is a 22-year-old female who has developed an infection of her hip. She has systemic lupus. She has had a recent systemic infection with pulmonary Staphylococcus as well as end ocarditis. She has presented now with an acute worsening of hip pain. MRI has shown a large effusio n and infection. She has been indicated for irrigation and debridement of the hip joint. DESCRIPTION OF OPERATION: Ms. Davalos was identified in the preoperative holding area. Her correct e xtremity was marked. She was carried to the operating room. She was positioned supine. General ane sthesia was induced. A multidisciplinary timeout was performed. The right lower extremity was prepp ed and draped in sterile fashion. We began the procedure with a posterior approach to the hip. We dissected down to the subcutaneous t issues to the fascia. The fascia was incised. At this point, we worked more deeply down to the shor t external rotators of the hip. We developed a window superior to the piriformis tendon. The tendon was partially released. This allowed access to the capsule. We incised the capsule and obtained a large flush of cloudy fluid. This was cultured. We opened the capsule further and thoroughly irriga sandra with copious lavage. At this point, we proceeded to irrigate with 3 liters of lavage using a pul se lavage. Next, we repaired the piriformis tendon with #2 Vicryl suture. We then closed the deep t issues with #2 Vicryl suture, 2-0 Vicryl suture and maki for the skin. A sterile dressing was bj lied. The patient was taken to the recovery room in good condition without complication.
[2017-12-01] MEDS: Vancomycin HCl 750 MG in Sodium Chloride 0.9% 250 ML 250 ML IVPB SCH ×5 (00:24→23:45)
[2017-12-01] MEDS: Sodium Chloride 0.9% 1,000 ML IV SCH (00:31)
[2017-12-01] MEDS: HYDROcodone/Acetaminophen 5/325 mg Tablet PO PRN ×5 (00:33→23:48)
[2017-12-01 08:12] LABS: #Lymphocytes 1.2 thou/uL (1.20-3.40); #Monocytes 0.7 thou/uL (0.11-0.59); #Neutrophils 7.7 thou/uL (1.40-6.50); %Basophils 0.2 % (0.0-1.0); %Eosinophils 0.1 % (0.0-10.0); %Lymphocytes 12.9 % (28.0-48.0); %Monocytes 7.1 % (0.0-4.0); %Neutrophils 79.8 % (31.0-61.0); Hemoglobin 11.4 g/dL (12.0-16.0); Mean Corpuscular HGB CONC 33.8 g/dL (32.0-36.0); Mean Corpuscular Hemoglobin 30.4 pg (25.0-35.0); Mean Corpuscular Volume 89.9 fL (78.0-98.0); Mean Platelet Volume 6.7 fL (7.4-10.4); Platelet Count 319 thou/uL (130-400); RBC Distribution Width 11.3 % (11.5-14.5); Red Blood Cell (RBC) Count 3.76 mill/uL (4.00-5.20); White Blood Cell (WBC) Count 9.6 thou/uL (4.8-10.8)
[2017-12-01] MEDS: Famotidine 20 MG TAB PO SCH ×2 (08:27→20:15)
[2017-12-01] MEDS: Enoxaparin Sodium 40 MG/0.4 ML SYRINGE SC SCH (08:27)
--- NOTE | 2017-12-01 08:29 | PRG ---
DATE OF SERVICE: 11/30/2017 SUBJECTIVE: The patient had a washout of the right hip. The operative report was reviewed and the f ascia was incised, the tendon released, the capsule was incised and a large portion of clotted fluid obtained. This was cultured and the area was lavaged and then closed. She is still in quite a bit o f pain as expected. PHYSICAL EXAMINATION: CONSTITUTIONAL: No cough, no chest pain. No abdominal pain, diarrhea, no genitourinary symptoms. VITAL SIGNS: T-max 97.8. Other vital signs are essentially normal. GENERAL: Alert, in distress from the right hip pain following the procedure. LUNGS: Clear. CARDIOVASCULAR: S1, S2, regular rate. ABDOMEN: Soft, not distended or tender. EXTREMITIES: Moves the lower extremities with limitations because of the right hip pain. LABORATORY DATA: White cell count has not been repeated and chemistries have not been repeated. Caden robiology with pending cultures. The Gram stain with no organisms seen. ASSESSMENT AND DISCUSSION: The previous methicillin-resistant Staphylococcus aureus bacteremia, pro bably secondary to endocarditis, septic lung involvement a few months ago, now with likely inflammato ry process right hip from MRSA seeding of the area. Continue vancomycin. Wait on culture results. Cultures may turn sewer to be negative, and in that case, would continue vancomycin for a protracted pe riod of time. If she has evidence of osteomyelitis of the femoral head I would advise 8 weeks of the rapy at least with vancomycin and then transitioned to a few months of oral antimicrobial therapy wit h tetracycline, probably doxycycline or minocycline twice daily.
[2017-12-01 08:31] LABS: Anion Gap 8 mmol/L (10-20); BUN (Urea Nitrogen) 10 mg/dL (7.0-18.7); Calc. Creatinine Clearance 145 mL/min (70-130); Carbon Dioxide 26 mmol/L (22-29); Chloride 108 mmol/L (98-107); Estimated GFR-MDRD Greater than 90; Glucose 112 mg/dL (70-105); Potassium 3.6 mmol/L (3.5-5.1); Sodium 138 mmol/L (136-145)
--- NOTE | 2017-12-01 17:53 | PRG ---
DATE OF SERVICE: 12/01/2017 SUBJECTIVE: The patient says she is doing okay. She had no specific complaints. PHYSICAL EXAMINATION: VITAL SIGNS: T-max 98.8, pulse 91, respirations 16, O2 saturation 98%, blood pressure 92/50. GENERAL APPEARANCE: Age appropriate female, awake, alert, oriented, pleasant, cooperative, no distre ss. HEART: Regular rate and rhythm without murmurs, gallops or rubs. LUNGS: Clear to auscultation bilaterally with good chest wall expansion and air exchange. ABDOMEN: Soft, nontender, nondistended, positive bowel sounds, no masses, no organomegaly. EXTREMITIES: Warm and dry. She has less tenderness to palpation throughout the right lower extremit y. LABORATORY DATA: White count 9.6, hemoglobin 11.4, platelets 319. Sodium 138, potassium 3.6, chlori de 108, CO2 26, BUN 10, creatinine 0.53. Thus far, all cultures remain negative. IMPRESSION AND PLAN: Septic arthritis of the right hip joint status post surgical washout. She cont inues on vancomycin as this is likely related to the previous infection she had back in April with mu ltiple areas of septic emboli. Continue antibiotics per Dr. Luke' recommendations. DISPOSITION: The patient may need a PICC line. She said last time it was attempted, the first attem pt lead to some V-tach and she had some trouble managing the second one however, that is going to be the most reasonable course for her most likely. The patient reports that her grandmother and aunt wh o lives locally are moving away and she is not able to move with them. She would like to go stay wit h her mother in [place], [place]. However, the patient has local insurance only. We discussed p otential options including her going to [place] where she has some other family who are nurses who could potentially help her administer the medication if she could continue to get it through a local insurance and we will discuss that with case management. History of lupus, stable. No active treatment.
[2017-12-02] MEDS: Vancomycin HCl 750 MG in Sodium Chloride 0.9% 250 ML 250 ML IVPB SCH ×4 (05:48→23:59)
[2017-12-02] MEDS: Famotidine 20 MG TAB PO SCH ×2 (09:13→20:01)
[2017-12-02] MEDS: HYDROcodone/Acetaminophen 5/325 mg Tablet PO PRN (09:14)
[2017-12-02] MEDS: Enoxaparin Sodium 40 MG/0.4 ML SYRINGE SC SCH (09:16)
[2017-12-02 11:56] LABS: Vancomycin, Trough 16.3 ug/mL
[2017-12-02] MEDS: Sodium Chloride 0.9% 1,000 ML IV SCH ×2 (12:39→17:34)
--- NOTE | 2017-12-02 12:56 | PRG ---
DATE OF SERVICE: 12/02/2017 SUBJECTIVE: The patient reports she is feeling a little discomfort in her hip, but it is not too bad . She has been getting up to go the bathroom tolerating that fairly well. OBJECTIVE: VITAL SIGNS: Temperature 98.3, pulse 89, respirations 18, O2 sat 99% on room air, BP 104/71. GENERAL APPEARANCE: Age appropriate female in no distress. She is awake, alert, oriented, pleasant and cooperative. HEART: Has regular rate and rhythm without murmurs, gallops or rubs. LUNGS: Clear to auscultation bilaterally with no wheezes or rales. ABDOMEN: Soft, nontender, nondistended. EXTREMITIES: Warm and dry. No edema. She has a postop dressing over the lateral right hip area. LABORATORY DATA: So far, gram stain on the right hip fluid, there were no WBCs seen. No organisms se en on Gram stain and cultures are negative so far. Blood cultures are also negative. IMPRESSION AND PLAN: 1. The patient has septic arthritis of the right hip. The patient was admitted back in April with s evere cavitary pneumonia growing MRSA with multiple septic emboli affecting numerous organs. She was on a prolonged course of IV antibiotics at that time and returned on this occasion with pain in the right leg area. She was subsequently noted to be febrile. White count was normal. An MRI of her hi p did appear to show septic arthritis with some contiguous myositis. She underwent surgery to have t he joint explored and washed out. There was a gush of cloudy fluid present when joint was reached. Thus far, cultures remain negative. Gram stain was negative for white cells or bacteria. She has re mained afebrile and normal white blood cell count. At this point, it is still a presumed septic arth ritis. She also has lupus; however, and that is potentially not impossible that this could have been some type of lupus related arthritis or myositis, although less likely. The patient is on vancomyci n given her history of the MRSA. She will need some long-term IV antibiotics per guidance of Dr. Rubén blanc. Also the patient logistically has some difficulty in arranging this. It is unclear where she is going to be able to go in order to have that happen. She is working with child support case officer in order to figure that out. She previously lives here locally with her grandmother, but her grandmother and aun t with her moving away and she is not going to be able to move with them and her insurance is the [facility] and [facility] Medicaid program that will not work outside the area. Again, case management work ing with her on this. 2. Systemic lupus erythematosus, generally stable. Unclear what role may be playing in this current joint situation. I encouraged the patient to avoid any further body piercings. She has pierced her tongue and her nos e. She said she had intended to do more piercings but I encouraged her to hold off on that, especial ly in light of her recurrent infectious etiologies.
--- NOTE | 2017-12-02 13:48 | PQF ---
WILSON HUNTER DAVID R MD [id number] CLINICAL DOCUMENTATION IMPROVEMENT CLARIFICATION FORM: ICD-10 Updated PLEASE DO AN ADDENDUM TO THE PROGRESS NOTE WITH ANY DOCUMENTATION UPDATES OR ADDITIONS AND CARRY THROUGH TO DC SUMMARY. THANK YOU. DATE: 12/02/1712-06-12/07/17 ATTN: DR. WARREN / DR. SOARES/ DR. MANLEY Please exercise your independent, professional judgment in responding to the clarification form. Clinical indicators are provided on the bottom of this form for your review Please check appropriate box(es): [ ] Sepsis due to: SEPTIC ARTHRITIS RIGHT HIP [ ] Localized infection without sepsis [ ] Other diagnosis [ ] Unable to determine In addition, please specify: Present on Admission (POA): [ ] Yes [ ] No [ ] Unable to determine For continuity of documentation, please document condition throughout progress notes and discharge summary. Thank You. CLINICAL INDICATORS - SIGNS / SYMPTOMS / LABS WBC count (>12,000/mm^4 or <4000/mm^3 or 10% neuts, 10% bands)--> 11/30 NEUTROS 79.8 per lab HR ON ADMIT 102-121 PER VITALS H&P: SIRS 12/02 SEPTIC ARTHRITIS RIGHT HIP; S/P JOINT EXPLORATION AND GUSH OF CLOUDY FLUID PRESENT RISK FACTORS Infection--> SEPTIC ARTHRITIS RIGHT HIP PER IM NOTE HX OF SLE, MRSA, SEPTIC EMBOLIC, SEVERE PNEUMONIA PER H&P TREATMENTS: Daily CBC per orders 11/28 to date Blood/sputum/wound cultures--see orders 11/29 ID Consult 11/28 per orders IV antibiotics - broad spectrum--> 11/28 vanc, cefepime and clindamycin per MAR 11/30 Joint drainage and culture per Op note IV fluids--> NS at 50 11/28-12/02 per MAR Thank you, Lisa (This form is maintained as a part of the permanent medical record) 2014 [employer] All Rights Reserved [email or web address] Lisa Kirkland RN, CCDS [phone] [facility]
[2017-12-02] MEDS ORDERED: HYDROcodone/Acetaminophen 10/325 mg Tablet PO PRN (14:23)
[2017-12-02] MEDS: HYDROcodone/Acetaminophen 10/325 mg Tablet PO PRN (19:29)
[2017-12-02] MEDS: Saccharomyces boulardii 250 MG CAP PO SCH (20:00)
[2017-12-02] MEDS: Ondansetron PF 4 MG/2 ML Vial SLOW IVP PRN (20:00)
--- NOTE | 2017-12-02 20:40 | PRG ---
DATE OF SERVICE: 12/02/2017 SUBJECTIVE: Feeling better, less pain, able to stand up, eating. No respiratory symptoms, no diarrh ea. OBJECTIVE: VITAL SIGNS: Normal. She is afebrile. LUNGS: Clear. CARDIOVASCULAR: S1, S2, regular rate. EXTREMITIES: Better range of motion right hip. LABORATORY DATA: White cell count 9.6, hemoglobin 11, platelets 319, 79% neutrophils. Creatinine 0. 53. Cultures are still negative from the hip fluid. 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 It is possible that the cultures will remain negative even in that case, I would still recommend c ontinuation of protracted treatment with IV vancomycin until the end of December through a PICC line. Arrangements to be made with family caseworker.
[2017-12-02] MEDS ORDERED: Polyethylene Glycol 3350 17 GM Packet PO PRN (22:59)
[2017-12-02] MEDS ORDERED: diphenhydrAMINE 25 MG CAP PO SCH (23:45)
[2017-12-03] MEDS: Vancomycin HCl 750 MG in Sodium Chloride 0.9% 250 ML 250 ML IVPB SCH ×4 (05:34→23:46)
[2017-12-03] MEDS: Saccharomyces boulardii 250 MG CAP PO SCH ×2 (08:31→20:11)
[2017-12-03] MEDS: Enoxaparin Sodium 40 MG/0.4 ML SYRINGE SC SCH (08:31)
[2017-12-03] MEDS: Famotidine 20 MG TAB PO SCH ×2 (08:31→20:11)
[2017-12-03] MEDS: HYDROcodone/Acetaminophen 10/325 mg Tablet PO PRN ×2 (08:34→18:06)
[2017-12-03] MEDS: Sodium Chloride 0.9% 1,000 ML IV SCH (08:44)
--- NOTE | 2017-12-03 16:58 | PDOC.PN ---
- Subjective Encounter Start Date: 12/03/17 Encounter Start Time: 11:15 Subjective: pt up in bed no complains - Objective Resuscitation Status: Resuscitation Status FULL:Full Resuscitation Vital Signs & Weight: Vital Signs (12 hours) Temp Pulse Resp BP Pulse Ox 12/03/17 08:00 96 12/03/17 07:38 98.5 F 68 16 93/62 96 Weight Weight 120 lb I&O: 12/02/17 12/03/17 12/04/17 06:59 06:59 06:59 Intake Total 1800 4550 600 Balance 1800 4550 600 Result Diagrams: 12/01/17 07:37 12/01/17 07:37 Phys Exam - Physical Examination Neck: no nodes, no JVD, supple, full ROM Respiratory: no wheezing, no rales, no rhonchi, wheezing present, clear to auscultation bilateral Cardiovascular: RRR, no significant murmur, no rub, gallop, irregular Gastrointestinal: soft, non-tender, no distention, positive bowel sounds right lateral thigh dressing intact Dx/Plan (1) Septic arthritis of hip Code(s): M00.9 - PYOGENIC ARTHRITIS, UNSPECIFIED Status: Acute (2) MRSA pneumonia Code(s): J15.212 - PNEUMONIA DUE TO METHICILLIN RESISTANT STAPHYLOCOCCUS AUREUS Status: Acute Qualifiers: Laterality: bilateral Comment: Stable. Saturating well on room air. Repeat ECH0- EF 50-55%. Continue IV Vancomycin (end date: 06/06). (3) Lupus (systemic lupus erythematosus) Code(s): M32.9 - SYSTEMIC LUPUS ERYTHEMATOSUS, UNSPECIFIED Status: Chronic Qualifiers: Systemic lupus erythematosus type: unspecified Systemic lupus erythematosus organ involvement: unspecified Qualified Code(s): M32.9 - Systemic lupus erythematosus, unspecified - Plan s/p washout of her right hip joint -: pt will need abx until nov -: cx still negative * . Review of Systems - Review of Systems Respiratory: negative: Cough, Dry, Shortness of Breath, Hemoptysis, SOB with Excertion, Pleuritic Pain, Sputum, Wheezing Cardiovascular: negative: chest pain, palpitations, orthopnea, paroxysmal nocturnal dyspnea, edema, light headedness, other Gastrointestinal: negative: Nausea, Vomiting, Abdominal Pain, Diarrhea, Constipation, Melena, Hematochezia, Other Genitourinary: negative: Dysuria, Frequency, Incontinence, Hematuria, Retention , Other - Medications/Allergies Allergies/Adverse Reactions: Allergies Allergy/AdvReac Type Severity Reaction Status Date / Time paper tape Allergy Uncoded 12/01/17 12:24 Medications: Current Medications Acetaminophen (Tylenol) 650 mg PO Q4H PRN PRN Reason: PAIN/FEVER Hydrocodone Bitart/Acetaminophen ([place] 10/325) 1 tab PO Q4H PRN PRN Reason: Mild-Moderate Pain (1-5) Hydrocodone Bitart/Acetaminophen ([place] 10/325) 2 tab PO Q4H PRN PRN Reason: Moderate to Severe Pain (6-10) Last Admin: 12/03/17 08:34 Dose: 2 tab Enoxaparin Sodium (Lovenox) 40 mg SC 0900 [facility] Last Admin: 12/03/17 08:31 Dose: Not Given Famotidine (Pepcid) 20 mg PO BID [facility] Last Admin: 12/03/17 08:31 Dose: 20 mg Sodium Chloride (Normal Saline 0.9%) 1,000 mls @ 50 mls/hr IV .Q20H [facility] Last Admin: 12/03/17 08:44 Dose: Not Given Vancomycin HCl 750 mg/ Sodium (Chloride) 250 mls @ 250 mls/hr IVPB Q6HR [facility] Last Admin: 12/03/17 11:28 Dose: 250 mls Miscellaneous Medication (Pharmacy To Dose) 1 each IVPB PRN PRN PRN Reason: Pharmacy to dose Ondansetron HCl (Zofran) 4 mg PO Q6H PRN PRN Reason: Nausea/Vomiting Ondansetron HCl (Zofran) 4 mg SLOW IVP Q6H PRN PRN Reason: Nausea/Vomiting Last Admin: 12/02/17 20:00 Dose: 4 mg Polyethylene Glycol (Miralax) 17 gm PO DAILYPRN PRN PRN Reason: Constipation Saccharomyces Boulardii (Florastor) 250 mg PO BID [facility] Last Admin: 12/03/17 08:31 Dose: 250 mg Sodium Chloride (Flush - Normal Saline) 10 ml IVF Q12HR [facility] Last Admin: 12/03/17 08:32 Dose: Not Given Sodium Chloride (Flush - Normal Saline) 10 ml IVF PRN PRN PRN Reason: Saline Flush
[2017-12-04] MEDS: Ondansetron PF 4 MG/2 ML Vial SLOW IVP PRN (01:50)
[2017-12-04] MEDS: Vancomycin HCl 750 MG in Sodium Chloride 0.9% 250 ML 250 ML IVPB SCH ×3 (06:04→19:28)
[2017-12-04] MEDS: Sodium Chloride 0.9% 1,000 ML IV SCH ×2 (06:05→08:35)
[2017-12-04] MEDS: Enoxaparin Sodium 40 MG/0.4 ML SYRINGE SC SCH (08:33)
[2017-12-04] MEDS: Saccharomyces boulardii 250 MG CAP PO SCH ×2 (08:34→21:13)
[2017-12-04] MEDS: Famotidine 20 MG TAB PO SCH ×2 (08:35→21:13)
[2017-12-04 11:33] LABS: Vancomycin, Trough 18.1 ug/mL
--- NOTE | 2017-12-04 17:57 | PDOC.PN ---
- Subjective Encounter Start Date: 12/04/17 Encounter Start Time: 14:45 Subjective: pt up in bed no complains - Objective Resuscitation Status: Resuscitation Status FULL:Full Resuscitation Vital Signs & Weight: Vital Signs (12 hours) Temp Pulse Resp BP Pulse Ox 12/04/17 08:00 99 12/04/17 07:00 98.4 F 99 17 106/73 99 Weight Weight 120 lb I&O: 12/03/17 12/04/17 12/05/17 06:59 06:59 06:59 Intake Total 4550 3900 1720 Balance 4550 3900 1720 Result Diagrams: 12/01/17 07:37 12/01/17 07:37 Phys Exam - Physical Examination Neck: no nodes, no JVD, supple, full ROM Respiratory: no wheezing, no rales, no rhonchi, wheezing present, clear to auscultation bilateral Cardiovascular: RRR, no significant murmur, no rub, gallop, irregular Gastrointestinal: soft, non-tender, no distention, positive bowel sounds Dx/Plan (1) Septic arthritis of hip Code(s): M00.9 - PYOGENIC ARTHRITIS, UNSPECIFIED Status: Acute (2) MRSA pneumonia Code(s): J15.212 - PNEUMONIA DUE TO METHICILLIN RESISTANT STAPHYLOCOCCUS AUREUS Status: Acute Qualifiers: Laterality: bilateral Comment: Stable. Saturating well on room air. Repeat ECH0- EF 50-55%. Continue IV Vancomycin (end date: 06/06). (3) Lupus (systemic lupus erythematosus) Code(s): M32.9 - SYSTEMIC LUPUS ERYTHEMATOSUS, UNSPECIFIED Status: Chronic Qualifiers: Systemic lupus erythematosus type: unspecified Systemic lupus erythematosus organ involvement: unspecified Qualified Code(s): M32.9 - Systemic lupus erythematosus, unspecified - Plan continue current tx -: no changes. pt will need longterm iv abx * . Review of Systems - Review of Systems ENT: negative: Ear Pain, Ear Discharge, Nose Pain, Nose Discharge, Nose Congestion, Mouth Pain, Mouth Swelling, Throat Pain, Throat Swelling, Other Respiratory: negative: Cough, Dry, Shortness of Breath, Hemoptysis, SOB with Excertion, Pleuritic Pain, Sputum, Wheezing Cardiovascular: negative: chest pain, palpitations, orthopnea, paroxysmal nocturnal dyspnea, edema, light headedness, other Gastrointestinal: negative: Nausea, Vomiting, Abdominal Pain, Diarrhea, Constipation, Melena, Hematochezia, Other - Medications/Allergies Allergies/Adverse Reactions: Allergies Allergy/AdvReac Type Severity Reaction Status Date / Time paper tape Allergy Uncoded 12/01/17 12:24 Medications: Current Medications Acetaminophen (Tylenol) 650 mg PO Q4H PRN PRN Reason: PAIN/FEVER Hydrocodone Bitart/Acetaminophen ([place] 10/325) 1 tab PO Q4H PRN PRN Reason: Mild-Moderate Pain (1-5) Hydrocodone Bitart/Acetaminophen ([place] 10/325) 2 tab PO Q4H PRN PRN Reason: Moderate to Severe Pain (6-10) Last Admin: 12/03/17 18:06 Dose: 2 tab Enoxaparin Sodium (Lovenox) 40 mg SC 0900 [facility] Last Admin: 12/04/17 08:33 Dose: Not Given Famotidine (Pepcid) 20 mg PO BID [facility] Last Admin: 12/04/17 08:35 Dose: 20 mg Sodium Chloride (Normal Saline 0.9%) 1,000 mls @ 50 mls/hr IV .Q20H [facility] Last Admin: 12/04/17 08:35 Dose: 1,000 mls Vancomycin HCl 750 mg/ Sodium (Chloride) 250 mls @ 250 mls/hr IVPB Q6HR [facility] Last Admin: 12/04/17 12:55 Dose: 250 mls Miscellaneous Medication (Pharmacy To Dose) 1 each IVPB PRN PRN PRN Reason: Pharmacy to dose Ondansetron HCl (Zofran) 4 mg PO Q6H PRN PRN Reason: Nausea/Vomiting Ondansetron HCl (Zofran) 4 mg SLOW IVP Q6H PRN PRN Reason: Nausea/Vomiting Last Admin: 12/04/17 01:50 Dose: 4 mg Polyethylene Glycol (Miralax) 17 gm PO DAILYPRN PRN PRN Reason: Constipation Saccharomyces Boulardii (Florastor) 250 mg PO BID [facility] Last Admin: 12/04/17 08:34 Dose: 250 mg Sodium Chloride (Flush - Normal Saline) 10 ml IVF Q12HR [facility] Last Admin: 12/04/17 08:35 Dose: Not Given Sodium Chloride (Flush - Normal Saline) 10 ml IVF PRN PRN PRN Reason: Saline Flush
[2017-12-05] MEDS: Vancomycin HCl 750 MG in Sodium Chloride 0.9% 250 ML 250 ML IVPB SCH ×5 (00:37→23:27)
[2017-12-05] MEDS: Sodium Chloride 0.9% 1,000 ML IV SCH ×3 (00:38→23:28)
[2017-12-05] MEDS: Saccharomyces boulardii 250 MG CAP PO SCH ×2 (10:25→20:23)
[2017-12-05] MEDS: Famotidine 20 MG TAB PO SCH ×2 (10:25→20:23)
[2017-12-05] MEDS: Enoxaparin Sodium 40 MG/0.4 ML SYRINGE SC SCH (10:26)
[2017-12-06] MEDS: Vancomycin HCl 750 MG in Sodium Chloride 0.9% 250 ML 250 ML IVPB SCH ×4 (05:24→23:57)
[2017-12-06] MEDS: HYDROcodone/Acetaminophen 10/325 mg Tablet PO PRN (08:38)
[2017-12-06] MEDS: Famotidine 20 MG TAB PO SCH ×2 (08:39→20:54)
[2017-12-06] MEDS: Saccharomyces boulardii 250 MG CAP PO SCH ×2 (08:39→20:54)
[2017-12-06] MEDS: Enoxaparin Sodium 40 MG/0.4 ML SYRINGE SC SCH (08:39)
[2017-12-06 11:27] LABS: Vancomycin, Trough 15.6 ug/mL
--- NOTE | 2017-12-06 15:31 | PDOC.PN ---
- Subjective Encounter Start Date: 12/06/17 Encounter Start Time: 10:00 Subjective: pt up in bed no complains - Objective Resuscitation Status: Resuscitation Status FULL:Full Resuscitation Vital Signs & Weight: Vital Signs (12 hours) Temp Pulse Resp BP Pulse Ox 12/06/17 08:00 97 12/06/17 07:44 98.6 F 75 16 90/58 L 97 Weight Weight 120 lb I&O: 12/05/17 12/06/17 12/07/17 06:59 06:59 06:59 Intake Total 2980 3230 240 Balance 2980 3230 240 Result Diagrams: 12/01/17 07:37 12/01/17 07:37 Phys Exam - Physical Examination Neck: no nodes, no JVD, supple, full ROM Respiratory: no wheezing, no rales, no rhonchi, wheezing present, clear to auscultation bilateral Cardiovascular: RRR, no significant murmur, no rub, gallop, irregular Dx/Plan (1) Septic arthritis of hip Code(s): M00.9 - PYOGENIC ARTHRITIS, UNSPECIFIED Status: Acute (2) MRSA pneumonia Code(s): J15.212 - PNEUMONIA DUE TO METHICILLIN RESISTANT STAPHYLOCOCCUS AUREUS Status: Acute Qualifiers: Laterality: bilateral Comment: Stable. Saturating well on room air. Repeat ECH0- EF 50-55%. Continue IV Vancomycin (end date: 06/06). (3) Lupus (systemic lupus erythematosus) Code(s): M32.9 - SYSTEMIC LUPUS ERYTHEMATOSUS, UNSPECIFIED Status: Chronic Qualifiers: Systemic lupus erythematosus type: unspecified Systemic lupus erythematosus organ involvement: unspecified Qualified Code(s): M32.9 - Systemic lupus erythematosus, unspecified - Plan will continue abx for now -: pt will get weekly blood work -: possible discharge nader * . Review of Systems - Review of Systems Respiratory: negative: Cough, Dry, Shortness of Breath, Hemoptysis, SOB with Excertion, Pleuritic Pain, Sputum, Wheezing Cardiovascular: negative: chest pain, palpitations, orthopnea, paroxysmal nocturnal dyspnea, edema, light headedness, other Gastrointestinal: negative: Nausea, Vomiting, Abdominal Pain, Diarrhea, Constipation, Melena, Hematochezia, Other - Medications/Allergies Allergies/Adverse Reactions: Allergies Allergy/AdvReac Type Severity Reaction Status Date / Time paper tape Allergy Uncoded 12/01/17 12:24 Medications: Current Medications Acetaminophen (Tylenol) 650 mg PO Q4H PRN PRN Reason: PAIN/FEVER Hydrocodone Bitart/Acetaminophen ([place] 10/325) 1 tab PO Q4H PRN PRN Reason: Mild-Moderate Pain (1-5) Hydrocodone Bitart/Acetaminophen ([place] 10/325) 2 tab PO Q4H PRN PRN Reason: Moderate to Severe Pain (6-10) Last Admin: 12/06/17 08:38 Dose: 2 tab Enoxaparin Sodium (Lovenox) 40 mg SC 0900 [facility] Last Admin: 12/06/17 08:39 Dose: Not Given Famotidine (Pepcid) 20 mg PO BID [facility] Last Admin: 12/06/17 08:39 Dose: 20 mg Sodium Chloride (Normal Saline 0.9%) 1,000 mls @ 50 mls/hr IV .Q20H [facility] Last Admin: 12/05/17 23:28 Dose: Not Given Vancomycin HCl 750 mg/ Sodium (Chloride) 250 mls @ 250 mls/hr IVPB Q6HR [facility] Last Admin: 12/06/17 13:04 Dose: 250 mls Miscellaneous Medication (Pharmacy To Dose) 1 each IVPB PRN PRN PRN Reason: Pharmacy to dose Ondansetron HCl (Zofran) 4 mg PO Q6H PRN PRN Reason: Nausea/Vomiting Ondansetron HCl (Zofran) 4 mg SLOW IVP Q6H PRN PRN Reason: Nausea/Vomiting Last Admin: 12/04/17 01:50 Dose: 4 mg Polyethylene Glycol (Miralax) 17 gm PO DAILYPRN PRN PRN Reason: Constipation Saccharomyces Boulardii (Florastor) 250 mg PO BID [facility] Last Admin: 12/06/17 08:39 Dose: 250 mg Sodium Chloride (Flush - Normal Saline) 10 ml IVF Q12HR [facility] Last Admin: 12/06/17 08:39 Dose: Not Given Sodium Chloride (Flush - Normal Saline) 10 ml IVF PRN PRN PRN Reason: Saline Flush
[2017-12-06] MEDS: Sodium Chloride 0.9% 1,000 ML IV SCH (18:00)
--- NOTE | 2017-12-06 18:16 | PDOC.PN ---
- Subjective Encounter Start Date: 12/06/17 Encounter Start Time: 10:30 Subjective: pt up in bed no complains - Objective Resuscitation Status: Resuscitation Status FULL:Full Resuscitation Vital Signs & Weight: Vital Signs (12 hours) Temp Pulse Resp BP Pulse Ox 12/06/17 08:00 97 12/06/17 07:44 98.6 F 75 16 90/58 L 97 Weight Weight 120 lb I&O: 12/05/17 12/06/17 12/07/17 06:59 06:59 06:59 Intake Total 2980 3230 240 Balance 2980 3230 240 Result Diagrams: 12/01/17 07:37 12/01/17 07:37 Phys Exam - Physical Examination Respiratory: no wheezing, no rales, no rhonchi, wheezing present, clear to auscultation bilateral Cardiovascular: RRR, no significant murmur, no rub, gallop, irregular Gastrointestinal: soft, non-tender, no distention, positive bowel sounds Musculoskeletal: no edema, pulses present, edema present Dx/Plan (1) Septic arthritis of hip Code(s): M00.9 - PYOGENIC ARTHRITIS, UNSPECIFIED Status: Acute (2) MRSA pneumonia Code(s): J15.212 - PNEUMONIA DUE TO METHICILLIN RESISTANT STAPHYLOCOCCUS AUREUS Status: Acute Qualifiers: Laterality: bilateral Comment: Stable. Saturating well on room air. Repeat ECH0- EF 50-55%. Continue IV Vancomycin (end date: 06/06). (3) Lupus (systemic lupus erythematosus) Code(s): M32.9 - SYSTEMIC LUPUS ERYTHEMATOSUS, UNSPECIFIED Status: Chronic Qualifiers: Systemic lupus erythematosus type: unspecified Systemic lupus erythematosus organ involvement: unspecified Qualified Code(s): M32.9 - Systemic lupus erythematosus, unspecified - Plan possible discharge in am -: spoke with Id who will arrange abx and picc * . Review of Systems - Review of Systems Respiratory: negative: Cough, Dry, Shortness of Breath, Hemoptysis, SOB with Excertion, Pleuritic Pain, Sputum, Wheezing Cardiovascular: negative: chest pain, palpitations, orthopnea, paroxysmal nocturnal dyspnea, edema, light headedness, other Gastrointestinal: negative: Nausea, Vomiting, Abdominal Pain, Diarrhea, Constipation, Melena, Hematochezia, Other Genitourinary: negative: Dysuria, Frequency, Incontinence, Hematuria, Retention , Other - Medications/Allergies Allergies/Adverse Reactions: Allergies Allergy/AdvReac Type Severity Reaction Status Date / Time paper tape Allergy Uncoded 12/01/17 12:24 Medications: Current Medications Acetaminophen (Tylenol) 650 mg PO Q4H PRN PRN Reason: PAIN/FEVER Hydrocodone Bitart/Acetaminophen ([place] 10/325) 1 tab PO Q4H PRN PRN Reason: Mild-Moderate Pain (1-5) Hydrocodone Bitart/Acetaminophen ([place] 10/325) 2 tab PO Q4H PRN PRN Reason: Moderate to Severe Pain (6-10) Last Admin: 12/06/17 08:38 Dose: 2 tab Enoxaparin Sodium (Lovenox) 40 mg SC 0900 [facility] Last Admin: 12/06/17 08:39 Dose: Not Given Famotidine (Pepcid) 20 mg PO BID [facility] Last Admin: 12/06/17 08:39 Dose: 20 mg Sodium Chloride (Normal Saline 0.9%) 1,000 mls @ 50 mls/hr IV .Q20H [facility] Last Admin: 12/06/17 18:00 Dose: Not Given Vancomycin HCl 750 mg/ Sodium (Chloride) 250 mls @ 250 mls/hr IVPB Q6HR [facility] Last Admin: 12/06/17 17:51 Dose: 250 mls Miscellaneous Medication (Pharmacy To Dose) 1 each IVPB PRN PRN PRN Reason: Pharmacy to dose Ondansetron HCl (Zofran) 4 mg PO Q6H PRN PRN Reason: Nausea/Vomiting Ondansetron HCl (Zofran) 4 mg SLOW IVP Q6H PRN PRN Reason: Nausea/Vomiting Last Admin: 12/04/17 01:50 Dose: 4 mg Polyethylene Glycol (Miralax) 17 gm PO DAILYPRN PRN PRN Reason: Constipation Saccharomyces Boulardii (Florastor) 250 mg PO BID [facility] Last Admin: 12/06/17 08:39 Dose: 250 mg Sodium Chloride (Flush - Normal Saline) 10 ml IVF Q12HR [facility] Last Admin: 12/06/17 08:39 Dose: Not Given Sodium Chloride (Flush - Normal Saline) 10 ml IVF PRN PRN PRN Reason: Saline Flush
[2017-12-07] MEDS: Vancomycin HCl 750 MG in Sodium Chloride 0.9% 250 ML 250 ML IVPB SCH ×3 (05:18→17:00)
[2017-12-07] MEDS: Enoxaparin Sodium 40 MG/0.4 ML SYRINGE SC SCH (09:12)
[2017-12-07] MEDS: Saccharomyces boulardii 250 MG CAP PO SCH ×2 (09:14→21:21)
[2017-12-07] MEDS: Famotidine 20 MG TAB PO SCH ×2 (09:14→21:21)
[2017-12-07] MEDS: Sodium Chloride 0.9% 1,000 ML IV SCH ×2 (11:27)
--- NOTE | 2017-12-07 12:28 | SPC ---
SONOGRAPHIC GUIDED RIGHT UPPER EXTREMITY PICC PLACEMENT: HISTORY: Cellulitis. Need for long-term antibiotics. FINDINGS: After explaining the procedure and answering all questions, the right upper extremity was prepped and draped in the usual sterile fashion. Sonographic survey of the upper arm shows partial compressibil ity of the basilic vein. Sterile technique, buffered local anesthesia, and a 22 gauge needle were us ed in an attempt to access the basilic vein. Despite the needle tip seen within the vein, blood retu rn was unable to be achieved. The wire would not pass into the basilic vein. The brachial vein was very small. The cephalic vein was of sufficient size for access. Sterile technique, buffered local anesthesia, sonographic guidance, and a 22 gauge needle were then used to access the right cephalic v ein. At the cephalic vein junction with the subclavian vein, some difficulty was encountered in dire cting the wire toward the superior vena cava. A 0.035 Glidewire was used. The catheter tip was even tually placed at the level of the cavoatrial junction and secured externally. The patient tolerated the procedure well and was returned in good condition. Fluoroscopy time was 2.1 minutes. Right upper extremity PICC is ready for use. POS: [facility]
--- NOTE | 2017-12-07 23:27 | PDOC.PN ---
- Subjective Encounter Start Date: 12/07/17 Encounter Start Time: 12:00 Patient seen and examined for Sepsis. No new complaints. No overnight events - Objective Resuscitation Status: Resuscitation Status FULL:Full Resuscitation MAR Reviewed: Yes Vital Signs & Weight: Vital Signs (12 hours) Temp Pulse Resp BP Pulse Ox 12/07/17 20:00 100 12/07/17 19:25 98.0 F 80 16 93/62 100 Weight Weight 120 lb I&O: 12/06/17 12/07/17 12/08/17 06:59 06:59 06:59 Intake Total 3230 2830 1160 Balance 3230 2830 1160 Result Diagrams: 12/01/17 07:37 12/01/17 07:37 Phys Exam - Physical Examination Constitutional: NAD Cardiovascular: RRR, no rub Gastrointestinal: soft, non-tender, positive bowel sounds Musculoskeletal: no edema Neurological: moves all 4 limbs Dx/Plan - Plan DVT proph w/SCDs IMPRESSION/PLAN: 1. Sepsis due to Rt hip Septic arthritis Cont IV Vacomycin until 01/14 with weekly labs DC to SNF once outpt At[facility] arranged (Facility working on Vancomycin and infusion pump 2. SLE 3. h/o MRSA bacteremia with ?Endocarditis/Septic lung involvement Review of Systems - Review of Systems Cardiovascular: negative: chest pain, palpitations, orthopnea, paroxysmal nocturnal dyspnea, edema, light headedness, other - Medications/Allergies Allergies/Adverse Reactions: Allergies Allergy/AdvReac Type Severity Reaction Status Date / Time paper tape Allergy Uncoded 12/01/17 12:24 Medications: Current Medications Acetaminophen (Tylenol) 650 mg PO Q4H PRN PRN Reason: PAIN/FEVER Hydrocodone Bitart/Acetaminophen ([place] 10/325) 1 tab PO Q4H PRN PRN Reason: Mild-Moderate Pain (1-5) Hydrocodone Bitart/Acetaminophen ([place] 10/325) 2 tab PO Q4H PRN PRN Reason: Moderate to Severe Pain (6-10) Last Admin: 12/06/17 08:38 Dose: 2 tab Enoxaparin Sodium (Lovenox) 40 mg SC 0900 [facility] Last Admin: 12/07/17 09:12 Dose: Not Given Famotidine (Pepcid) 20 mg PO BID [facility] Last Admin: 12/07/17 21:21 Dose: 20 mg Sodium Chloride (Normal Saline 0.9%) 1,000 mls @ 50 mls/hr IV .Q20H [facility] Last Admin: 12/07/17 11:27 Dose: Not Given Vancomycin HCl 750 mg/ Sodium (Chloride) 250 mls @ 250 mls/hr IVPB Q6HR [facility] Last Admin: 12/07/17 17:00 Dose: 250 mls Miscellaneous Medication (Pharmacy To Dose) 1 each IVPB PRN PRN PRN Reason: Pharmacy to dose Ondansetron HCl (Zofran) 4 mg PO Q6H PRN PRN Reason: Nausea/Vomiting Ondansetron HCl (Zofran) 4 mg SLOW IVP Q6H PRN PRN Reason: Nausea/Vomiting Last Admin: 12/04/17 01:50 Dose: 4 mg Polyethylene Glycol (Miralax) 17 gm PO DAILYPRN PRN PRN Reason: Constipation Saccharomyces Boulardii (Florastor) 250 mg PO BID [facility] Last Admin: 12/07/17 21:21 Dose: 250 mg Sodium Chloride (Flush - Normal Saline) 10 ml IVF Q12HR [facility] Last Admin: 12/07/17 21:23 Dose: Not Given Sodium Chloride (Flush - Normal Saline) 10 ml IVF PRN PRN PRN Reason: Saline Flush
[2017-12-08] MEDS: Vancomycin HCl 750 MG in Sodium Chloride 0.9% 250 ML 250 ML IVPB SCH ×2 (00:46→05:27)
[2017-12-08] MEDS: HYDROcodone/Acetaminophen 10/325 mg Tablet PO PRN (04:13)
[2017-12-08 07:08] VITALS: BP 93/55; TEMP 98.2
[2017-12-08] MEDS: Enoxaparin Sodium 40 MG/0.4 ML SYRINGE SC SCH (09:36)
[2017-12-08] MEDS: Saccharomyces boulardii 250 MG CAP PO SCH (09:36)
[2017-12-08] MEDS: Famotidine 20 MG TAB PO SCH (09:37)
[2017-12-08 13:08] LABS: Vancomycin, Trough 13.5 ug/mL
--- NOTE | 2017-12-09 16:56 | PQF ---
WILSON HUNTER CHRISTOPHER E MD [id number] CLINICAL DOCUMENTATION CLARIFICATION FORM: POST DISCHARGE DATE: 12/09/17 ATTN: Dr. Gonzalez Please exercise your independent, professional judgment in responding to the clarification form. Clinical indicators are provided on the bottom of this form for your review Procedure: RIGHT HIP IRRIGATION AND DEBRIDEMENT [ ] Site(s) (Specify body part i.e. joint, intra-articular, distal femur, radial nerve , transverse colon) Laterality: [ ] Left [ ] Right [ ] Bilateral [ ] Device/Implant [ ] Unable to determine [ ] Other procedure: CLINICAL INDICATORS - SIGNS/ SYMPTOMS / LABS Op Note/Procedure note Right intra-articular hip infection - "We incised the capsule and obtained a lare flush of cloudy fluid. This was cultured. We opened the capsule further and thoroughly irrigated with copious lavage." - op note 11/30/17 RISK FACTORS - history of admission MRSA pneumonia with septic emboli - HP 11/28 TREATMENT - Clindamycin IV, Vancomycin IV - CPOE 11/28/17 (This form is maintained as a part of the permanent medical record) 2014 [employer] All Rights Reserved Karolyn Rose, CCS, [employer], CASC [email or web address]
== END 2017-12-08 12:30 | DRG 853 ==
LOC: ERS 05:16 → T4-B 07:20
PROVIDERS: ADMIT Hospitalist; ATTEND Hospitalist
PROC: 0S990ZZ Drainage of Right Hip Joint, Open Approach (ICD-10-PCS; principal; 2017-11-30)
PROC: 02HV33Z Insertion of Infusion Device into Superior Vena Cava, Percutaneous Approach (ICD-10-PCS; 2017-12-07)
DX: A41.9 Sepsis, unspecified organism (principal); J15.212 Pneumonia due to Methicillin resistant Staphylococcus aureus; M00.9 Pyogenic arthritis, unspecified; M32.9 Systemic lupus erythematosus, unspecified; L25.9 Unspecified contact dermatitis, unspecified cause; M25.451 Effusion, right hip; M60.9 Myositis, unspecified; Z86.14 Personal history of Methicillin resistant Staphylococcus aureus infection
CPT/HCPCS: 36415; 36569; 71046; 80048; 80053; 80202; 81003; 81025; 82550; 85025; 85652; 86140; 86160; 87040; 87070; 87205; 93306; 96361; 96374; J1100; J1650; J1885; J2001; J2250; J2270; J2405; J2704; J3010; J3370; J3490; J7050